=== PATIENT | female | born 1955 | race Caucasian/White ===

== ENCOUNTER 2024-06-08 00:25 | Inpatient (IN) ==
--- NOTE | 2024-06-08 01:22 | Emergency Department Note ---
Impression & Plan Mood disorder, Rhinovirus infection ED Provider Note NAME: JUSTIN WU AGE: 68 SEX: Female INFORMANT: Patient and friend ED PROVIDER(S): Augusto Mendoza MD CHIEF COMPLAINT: Mental health evaluation PLAN: Disposition: Admitted Outpatient prescription management: none Referral: None MEDICAL DECISION MAKING: Patient presented because of fluctuating mood and suicidal ideation. On examination she was exhibiting some signs of galen. Patient also had suicidal ideation. She noted minimal URI symptoms and she was around some close contacts with similar complaints. COVID testing was negative. Her CBC and chemistry panels were unremarkable. Toxicology screen negative. The patient had no significant pulmonary symptoms to warrant chest imaging. Patient had a normal ECG. Consultation was made with [address] [place] [address]. Patient was evaluated in the ER. They did ask for a [employer] testing to be performed to determine patient's eligibility for admission to the unit. Patient was positive for rhinovirus/enterovirus. They declined direct admission to the unit due to the infectious issues. [facility] Case discussed and diagnostics were reviewed. Patient can be admitted medically and psychiatry can be consulted. Care/management discussed with: ED psychiatric as assurance manager Level of care consideration(s): After review of the information above and other included data, I feel the patient requires escalation of admission. Triage Nursing notes: reviewed and agree them. Vital Signs: reviewed and remarkable for no significant abnormalities Additional History obtained from: Patient's friend noted her behavior outside the facility and confirm the history. Chronic Medical/Social Conditions affecting care: Anxiety, depression Prior/ Outside/ External records reviewed: none Differential Diagnosis: Mood disorder, infection, hypoglycemia, electrolyte abnormalities, cardiac sources, intracerebral event, toxicologic, trauma, neurologic, as well as other pathologies. Diagnostics, independently interpreted by me: ECG: Twelve-lead ECG reveals a normal sinus rhythm at [address] elevation or depression. No PACs or PVCs. Cardiac Monitoring: none Medical decision rules: none Imaging studies: Deferred HPI: 68 year old Female with history of anxiety and depression along with suicide attempt arrives for a mental health evaluation. Patient states that she is having a lot of mental health issues that have been going on since the of her brother and boyfriend a few months ago. They both from cancer. She notes that her primary physician a few weeks ago started her on escitalopram. She did request a referral to mental health. Patient notes that she has not been sleeping well. She has had difficulty concentrating. No significant alcohol or drug use. Patient is here with her friend that she lives with and friend notes that she has been extremely talkative and animated. Patient admits to excessive spending. She notes a runny nose but denies any other recent medical issues. She does have a history of hypertension as well. Pt denies LOC, headache, fevers, chills, diaphoresis, visual changes, neck pain, chest pain, breathing difficulties, nausea, vomiting, abdominal pain, back pain, diarrhea, urinary symptoms, numbness, weakness, or other complaints.. PAST MEDICAL HISTORY: See Below, anxiety, depression, suicide attempt, hypertension PAST SURGICAL HISTORY: See Below, SOCIAL HISTORY: See Below, lives with friend HOME MEDICATIONS: See Below ALLERGIES: See Below VITALS: See Below PHYSICAL EXAMINATION: GENERAL: Awake, alert, anxious-appearing, in no distress HENT: Normocephalic, atraumatic. Oropharynx unremarkable. EYES: Normal conjunctiva. Sclera non-icteric. Pupils round and reactive. Extraocular muscles intact. NECK: Inspection normal. Non-tender. Supple. No nuchal rigidity. FROM. No masses. RESPIRATORY: Clear to auscultation. No wheezes. No rales. Normal respiratory effort. CARDIAC: Normal rate. Normal rhythm. No murmurs. No rubs. Extremities warm and well perfused. Pulses equal. No JVD. GI: Soft, non-distended. No tenderness to palpation. No rebound or guarding. No masses. MUSCULOSKELETAL: Atraumatic. Chest examination reveals no tenderness. The back is symmetrical on inspection without obvious abnormality. There is no CVA tenderness to palpation. No joint edema. LOWER EXTREMITIES: Calves are equal size bilaterally and non-tender. No edema. No discoloration. NEURO: Normal sensorium. No sensory or motor deficits noted. SKIN: No rash or jaundice noted. PSYCH: Inflated mood and affect. Positive SI. PROCEDURES: none CRITICAL CARE: none OBSERVATION NOTE: none Past Med/Surg History Problem List (Updated 06/08/24 @ 07:04 by Augusto Mendoza MD) Rhinovirus infection (Acute) Mood disorder (Acute) Social History Smoking Status: Former smoker Tobacco Type: Cigarettes Preferred Language: Sinhala Feels Safe at Home: Yes Gender Identity: Female Allergies Allergies Allergy/AdvReac Type Severity Reaction Status Date / Time atomoxetine [From Strattera] AdvReac Muscle Pain Verified 06/08/24 01:37 Home Meds Home Medications Medication Instructions Recorded Confirmed escitalopram oxalate 5 mg tablet 5 mg PO DAILY 06/08/24 06/08/24 (Lexapro) lisinopril 10 mg tablet 10 mg PO DAILY 06/08/24 06/08/24 Results & Data (ED) Vital Signs Vital Signs - 24 hr 06/08/24 00:30 06/08/24 02:15 06/08/24 04:00 Temperature 36.9 C 37.0 C Temperature Source Temporal Artery Scan Oral Pulse Rate 98 H Pulse Rate [Finger] 87 79 Pulse Rhythm [Finger] Regular Regular Pulse Strength [Finger] Normal Respiratory Rate 18 20 19 Respiratory Effort / Characteristics Non-Labored Spontaneous Non-Labored Spontaneous Non-Labored Spontaneous Respiratory Depth Normal Normal Normal Respiratory Pattern Regular Regular Regular Blood Pressure 157/103 H Blood Pressure [Right Arm] 134/69 152/81 H Blood Pressure Mean 121 Blood Pressure Mean [Right Arm] 90 104 Blood Pressure Position Sitting Blood Pressure Position [Right Arm] Lying Pulse Oximetry 97 96 97 Oxygen Delivery Method Room Air Room Air Room Air Sepsis Recent Fever Within 48 Hours No Sepsis New/Unexplained Change in Mental Status N/A Sepsis Action Taken by Nursing No Action Required Laboratory Data 06/08/24 00:41 06/08/24 00:41 Lab Results 06/08/24 06/08/24 06/08/24 Range/Units 00:41 00:54 01:25 WBC 9.77 (4.8-10.8) K/ul RBC 4.23 (4.20-5.40) M/uL Hgb 12.6 (12.0-16.0) g/dl Hct 39.6 (37.0-47.0) % MCV 93.6 (80.0-100.0) fL MCH 29.8 (25.0-34.0) pg MCHC 31.8 L (32.0-36.0) g/dL RDW Std Deviation 52.9 H (36.4-46.3) fL RDW Coeff of [place] 15.4 H (11.5-14.5) % Plt Count 256 (130-400) K/uL MPV 9.1 L (9.4-12.4) fL Immature Gran % (Auto) 0.3 % Neut % (Auto) 58.3 % Lymph % (Auto) 29.2 % [place] % (Auto) 9.1 % Eos % (Auto) 2.6 % Baso % (Auto) 0.5 % Neut # (Auto) 5.70 (1.40-6.50) K/uL Lymph # (Auto) 2.85 (1.20-3.40) K/uL [place] # (Auto) 0.89 H (0.11-0.59) K/uL Eos # (Auto) 0.25 (0.00-0.50) K/uL Baso # (Auto) 0.05 (0.00-0.20) K/uL Immature Gran # (Auto) 0.03 (0.01-0.20) K/uL Sodium 140 (136-145) mmol/L Potassium 3.8 (3.5-5.1) mmol/L Chloride 106 (98-107) mmol/L Carbon Dioxide 28 (21-32) mmol/L Anion Gap 6 (3-11) BUN 26 H (6-23) mg/dl Creatinine 0.85 (0.6-1.2) mg/dl Est Cr Clr Drug Dosing 51.7 ml/min eGFR 74.12 BUN/Creatinine Ratio 30.6 H (10-20) Glucose 101 H (70-99(Fasting)) mg/dl Calcium 9.0 (8.6-10.3) mg/dl Total Bilirubin 0.2 (0.2-1.0) mg/dl AST 29 (13-39) U/L ALT 26 (7-52) U/L Alkaline Phosphatase 67 (34-104) U/L Total Protein 6.2 (6.0-8.3) gm/dl Albumin 4.1 (3.4-5.0) gm/dl Globulin 2.1 L (2.5-4.0) gm/dl Albumin/Globulin Ratio 2.0 (0.9-2) TSH 0.982 (0.300-4.500) uIu/ml Urine Color Yellow Urine Appearance Clear (Clear) Urine pH 6.0 (4.5-7.5) Ur Specific [place] 1.025 (1.000-1.030) Urine Protein Negative (Negative) Urine Glucose (UA) Negative (Negative) Urine Ketones Trace H (Negative) Urine Blood Negative (Negative) Urine Nitrite Negative (Negative) Urine Bilirubin Negative (Negative) Urine Urobilinogen Negative (Negative) Ur Leukocyte Esterase Negative (Negative) Salicylates < 3.0 L (3.0-30) mg/dl Urine Opiates Screen Neg (Neg) Ur Methadone, Qual Neg (Neg) Urine Fentanyl Screen Neg (Neg) Acetaminophen < 3 L (10-30) ug/ml Urine Barbiturates Neg (Neg) Ur Phencyclidine (PCP) Neg (Neg) U Amphetamin/Meth Scrn Neg (Neg) MDMA (Ecstasy) Screen Neg (Neg) U Benzodiazepines Scrn Neg (Neg) Ur Cocaine Metabolite Neg (Neg) U Marijuana (THC) Screen Neg (Neg) Ethyl Alcohol mg/dL < 10.0 (<10.0) mg/dl Adenovirus (PCR) (NotDetected) B. pertussis DNA (PCR) (NotDetected) B.parapertussis DNA PCR (NotDetected) C. pneumoniae DNA (PCR) (NotDetected) Coronavirus OC43 (PCR) (NotDetected) Coronavirus HKU1 (PCR) (NotDetected) Coronavirus 229E (PCR) (NotDetected) SARS-CoV-2 (PCR) (NotDetected) Coronavirus NL63 (PCR) (NotDetected) Human Metapneumovir PCR (NotDetected) Influenza Type A (PCR) (NotDetected) Influenza Type B (PCR) (NotDetected) M. pneumoniae (PCR) (NotDetected) Parainfluenza 1 (PCR) (NotDetected) Parainfluenza 2 (PCR) (NotDetected) Parainfluenza 3 (PCR) (NotDetected) Parainfluenza 4 (PCR) (NotDetected) RSV (PCR) (NotDetected) Entero/Rhino (PCR) (NotDetected) SARS-CoV-2, RNA, NAAT NEGATIVE (NEGATIVE) 06/08/24 Range/Units 03:44 WBC (4.8-10.8) K/ul RBC (4.20-5.40) M/uL Hgb (12.0-16.0) g/dl Hct (37.0-47.0) % MCV (80.0-100.0) fL MCH (25.0-34.0) pg MCHC (32.0-36.0) g/dL RDW Std Deviation (36.4-46.3) fL RDW Coeff of [place] (11.5-14.5) % Plt Count (130-400) K/uL MPV (9.4-12.4) fL Immature Gran % (Auto) % Neut % (Auto) % Lymph % (Auto) % [place] % (Auto) % Eos % (Auto) % Baso % (Auto) % Neut # (Auto) (1.40-6.50) K/uL Lymph # (Auto) (1.20-3.40) K/uL [place] # (Auto) (0.11-0.59) K/uL Eos # (Auto) (0.00-0.50) K/uL Baso # (Auto) (0.00-0.20) K/uL Immature Gran # (Auto) (0.01-0.20) K/uL Sodium (136-145) mmol/L Potassium (3.5-5.1) mmol/L Chloride (98-107) mmol/L Carbon Dioxide (21-32) mmol/L Anion Gap (3-11) BUN (6-23) mg/dl Creatinine (0.6-1.2) mg/dl Est Cr Clr Drug Dosing ml/min eGFR BUN/Creatinine Ratio (10-20) Glucose (70-99(Fasting)) mg/dl Calcium (8.6-10.3) mg/dl Total Bilirubin (0.2-1.0) mg/dl AST (13-39) U/L ALT (7-52) U/L Alkaline Phosphatase (34-104) U/L Total Protein (6.0-8.3) gm/dl Albumin (3.4-5.0) gm/dl Globulin (2.5-4.0) gm/dl Albumin/Globulin Ratio (0.9-2) TSH (0.300-4.500) uIu/ml Urine Color Urine Appearance (Clear) Urine pH (4.5-7.5) Ur Specific [place] (1.000-1.030) Urine Protein (Negative) Urine Glucose (UA) (Negative) Urine Ketones (Negative) Urine Blood (Negative) Urine Nitrite (Negative) Urine Bilirubin (Negative) Urine Urobilinogen (Negative) Ur Leukocyte Esterase (Negative) Salicylates (3.0-30) mg/dl Urine Opiates Screen (Neg) Ur Methadone, Qual (Neg) Urine Fentanyl Screen (Neg) Acetaminophen (10-30) ug/ml Urine Barbiturates (Neg) Ur Phencyclidine (PCP) (Neg) U Amphetamin/Meth Scrn (Neg) MDMA (Ecstasy) Screen (Neg) U Benzodiazepines Scrn (Neg) Ur Cocaine Metabolite (Neg) U Marijuana (THC) Screen (Neg) Ethyl Alcohol mg/dL (<10.0) mg/dl Adenovirus (PCR) Not Detected (NotDetected) B. pertussis DNA (PCR) Not Detected (NotDetected) B.parapertussis DNA PCR Not Detected (NotDetected) C. pneumoniae DNA (PCR) Not Detected (NotDetected) Coronavirus OC43 (PCR) Not Detected (NotDetected) Coronavirus HKU1 (PCR) Not Detected (NotDetected) Coronavirus 229E (PCR) Not Detected (NotDetected) SARS-CoV-2 (PCR) Not Detected (NotDetected) Coronavirus NL63 (PCR) Not Detected (NotDetected) Human Metapneumovir PCR Not Detected (NotDetected) Influenza Type A (PCR) Not Detected (NotDetected) Influenza Type B (PCR) Not Detected (NotDetected) M. pneumoniae (PCR) Not Detected (NotDetected) Parainfluenza 1 (PCR) Not Detected (NotDetected) Parainfluenza 2 (PCR) Not Detected (NotDetected) Parainfluenza 3 (PCR) Not Detected (NotDetected) Parainfluenza 4 (PCR) Not Detected (NotDetected) RSV (PCR) Not Detected (NotDetected) Entero/Rhino (PCR) DETECTED A (NotDetected) SARS-CoV-2, RNA, NAAT (NEGATIVE) Administered Medications Discontinued Medications Menthol (Cough Drop (Sugar Free) Becky 24 Becky/1 Box) 1 becky BUCCAL NOW STA Stop: 06/08/24 02:18 Last Admin: 06/08/24 02:25 Dose: 1 becky Documented By: LUPE Discharge Plan Visit Data Chief Complaint: Mental Health Evaluation Stated Complaint: MENTAL HEALTH ISSUES ED Provider: Augusto Mendoza Discharge Problem: Mood disorder, Rhinovirus infection Forms Stand Alone Forms: [facility], Suicide Prevention Resources Prescriptions Prescriptions: No Action lisinopril 10 mg Tablet 10 mg PO DAILY escitalopram oxalate [Lexapro] 5 mg Tablet 5 mg PO DAILY Referrals Referrals: PCP,NO [Physician] -
[2024-06-08 01:31] LABS: Basophils # (auto) 0.05 K/uL (0.00-0.20); Basophils % (auto) 0.5 %; Eosinophils # (auto) 0.25 K/uL (0.00-0.50); Eosinophils % (auto) 2.6 %; Hematocrit (blood only) 39.6 % (37.0-47.0); Hemoglobin 12.6 g/dl (12.0-16.0); Immature Granulocytes # (auto) 0.03 K/uL (0.01-0.20); Immature Granulocytes % (auto) 0.3 %; Lymphocytes # (auto) 2.85 K/uL (1.20-3.40); Lymphocytes % (auto) 29.2 %; Mean Corpuscular Hemoglobin 29.8 pg (25.0-34.0); Mean Corpuscular Hgb Conc 31.8 g/dL (32.0-36.0); Mean Corpuscular Volume 93.6 fL (80.0-100.0); Mean Platelet Volume 9.1 fL (9.4-12.4); Monocytes # (auto) 0.89 K/uL (0.11-0.59); Monocytes % (auto) 9.1 %; Neutrophils % (auto) 58.3 %; Platelet Count 256 K/uL (130-400); RDW Coefficient of Variation 15.4 % (11.5-14.5); RDW Standard Deviation 52.9 fL (36.4-46.3); Red Blood Count 4.23 M/uL (4.20-5.40); White Blood Count 9.77 K/ul (4.8-10.8)
[2024-06-08 01:48] LABS: Appearance Urine Clear (Clear); Bilirubin Urine Negative (Negative); Blood Urine Negative (Negative); Color Urine Yellow; Glucose Urine UA Negative (Negative); Ketones Urine Trace (Negative); Leukocyte Esterase Urine Negative (Negative); Nitrite Urine Negative (Negative); Protein Urine Negative (Negative); Specific Gravity Urine 1.025 (1.000-1.030); Urobilinogen Urine Negative (Negative)
[2024-06-08 01:52] LABS: Albumin Level 4.1 gm/dl (3.4-5.0); Bilirubin,Total 0.2 mg/dl (0.2-1.0); Potassium 3.8 mmol/L (3.5-5.1)
[2024-06-08 02:04] LABS: BUN Creatinine Ratio 30.6 (10-20); Creatinine Clr Calc Pharmacy 51.7 ml/min; Globulin 2.1 gm/dl (2.5-4.0); Total Protein 6.2 gm/dl (6.0-8.3)
[2024-06-08 02:06] LABS: Acetaminophen < 3 ug/ml (10-30); Salicylate < 3.0 mg/dl (3.0-30)
[2024-06-08 02:21] LABS: Amphetamines+Metham, Urine Neg (Neg); Barbiturates, Urine Neg (Neg); Benzodiazepine, Urine Neg (Neg); Cocaine, Urine Neg (Neg); Fentanyl, Urine Neg (Neg); MDMA (Ecstacy), Urine Neg (Neg); Marijuana, Urine Neg (Neg); Methadone, Urine Neg (Neg); Opiate, Urine Neg (Neg); Phencyclidine, Urine Neg (Neg)
[2024-06-08] MEDS: COUGH DROP (SUGAR FREE) LOZ 24 LOZ/1 BOX BUCCAL STA (02:25)
[2024-06-08 02:47] LABS: Thyroid Stimulating Hormone 0.982 uIu/ml (0.300-4.500)
[2024-06-08 04:49] LABS: Adenovirus PCR Not Detected (NotDetected); Bordetella parapertussis PCR Not Detected (NotDetected); Bordetella pertussis PCR Not Detected (NotDetected); Chlamydia pneumoniae PCR Not Detected (NotDetected); Coronavirus 229E PCR Not Detected (NotDetected); Coronavirus CoV-2 (COVID19)PCR Not Detected (NotDetected); Coronavirus HKU1 PCR Not Detected (NotDetected); Coronavirus NL63 PCR Not Detected (NotDetected); Coronavirus OC43PCR Not Detected (NotDetected); Human Metapneumovirus PCR Not Detected (NotDetected); Influenza A PCR Not Detected (NotDetected); Influenza B PCR Not Detected (NotDetected); Mycoplasma pneumoniae PCR Not Detected (NotDetected); Parainfluenza Virus 1 PCR Not Detected (NotDetected); Parainfluenza Virus 2 PCR Not Detected (NotDetected); Parainfluenza Virus 3 PCR Not Detected (NotDetected); Parainfluenza Virus 4 PCR Not Detected (NotDetected); Respiratory Syncytial VirusPCR Not Detected (NotDetected); Rhinovirus/Enterovirus PCR DETECTED (NotDetected)
--- NOTE | 2024-06-08 06:51 | History & Physical Report ---
Date of Service June 08, 2024 Assessment & Plan (1) Mood disorder: Plan: Likely bipolar disorder History anxiety disorder History ADHD as per records Episodic suicidal ideations hypertension, slightly elevated Rhinovirus infection COPD, not in acute exacerbation melanoma status post surgery difficult airway as per records past tobacco abuse [facility] Psychiatry consult re: bipolar disorder, episodic suicidal ideations Suicide precautions/hold Lexapro until patient seen by Psychiatry service Supportive management for viral illness DVT prophylaxis. SCDs Full code Text document was generated using [employer] voice recognition software. It may contain grammatical or spelling errors. Kindly contact undersigned for clarification of any documentation item in question. History of Present Illness Chief Complaint: My friend wanted me to get checked out Primary Care Provider: Dr. Ramesh Fernández from [place], [place] History obtained from patient, ED staff, and records. Medical history significant for hypertension, COPD, GERD, ADHD, anxiety/mood disorder, melanoma status post surgery, difficult airway as per records, past tobacco abuse. Patient had been staying with a friend who is a resident of [place] the last few months. Patient stressed out/depressed over recent deaths in the family. Patient started by PCP on Celexa a few weeks ago. Patient thinks medication helping. Patient verbally aggressive recently and threatened to kill her friend as per report. Patient not sleeping well for a couple of weeks. Patient admits to fleeting suicidal thoughts. Denies headache, chest pain, SOB. Some nasal congestion with cough productive of clear sputum. Sick contacts from triptap gathering. MHU recommended medical admission due to positive rhinovirus swab. Medical History as above Surgical History : Bunion surgery, dental surgery, D&C, shoulder lesion incision, metatarsal osteotomy, cataract surgery, tonsillectomy/adenoidectomy, hammertoe correction, skin cancer surgery Family History : Breast cancer, colon cancer, heart disease, migraine Personal/Social history : Past tobacco abuse, occasional EtOH intake, retired [employer] employee Allergies Allergy/AdvReac Type Severity Reaction Status Date / Time atomoxetine [From Strattera] AdvReac Muscle Pain Verified 06/08/24 01:37 Home Medications Medication Instructions Recorded Confirmed Type escitalopram oxalate 5 mg tablet 5 mg PO DAILY 06/08/24 06/08/24 History (Lexapro) lisinopril 10 mg tablet 10 mg PO DAILY 06/08/24 06/08/24 History Past Med/Surg History Problem List (Updated 06/08/24 @ 10:31 by Joel Hill MD) Impaired insight Prolonged QT interval Suicidal ideation Bipolar disorder Hypertension, essential Rhinovirus infection (Acute) Mood disorder (Acute) Social History Smoking Status: Former smoker Tobacco Type: Cigarettes Do You Dip or Chew Tobacco: No; Hx Alcohol Use: No Hx Substance Use: No Preferred Language: Indonesian Communication Ability: Effective Skirt Clipper Required: No Beliefs That Will Affect Care: None Current Living Situation: Other Current Living Situation Comment: Friend - Sara Carcamo Feels Safe at Home: Yes Safety Concerns: Feels Safe At This Time Gender Identity: Female Review of Systems Review of Systems: As per HPI, all other systems reviewed and negative Physical Exam Physical Exam: GENERAL: Comfortable, pleasant, flight of ideas expressed during encounter, no respiratory distress SKIN: Normal color, warm HEENT: [place] palpebral conjunctivae, no ptosis, dry buccal mucosa NECK : Supple, no tenderness CHEST : Decreased breath sounds, no tenderness HEART : RRR, no obvious murmurs ABDOMEN: Some distention, nontender EXTREMITIES : No LE swelling/tenderness, no other conspicuous deformities noted NEUROLOGIC : Coherent, no facial asymmetry, no other gross focality Results & Data Results & Data Vital Signs (Past 12 Hours) Vital Signs Temp Pulse Pulse Resp BP BP Pulse Ox 06/08/24 04:00 79 19 152/81 H 97 06/08/24 02:15 37.0 C 87 20 134/69 96 06/08/24 00:30 36.9 C 98 H 18 157/103 H 97 O2 Del Method 06/08/24 04:00 Room Air 06/08/24 02:15 Room Air 06/08/24 00:30 Room Air Laboratory Results Laboratory Results WBC 9.77 K/ul (4.8-10.8) 06/08/24 00:41 RBC 4.23 M/uL (4.20-5.40) 06/08/24 00:41 Hgb 12.6 g/dl (12.0-16.0) 06/08/24 00:41 Hct 39.6 % (37.0-47.0) 06/08/24 00:41 MCV 93.6 fL (80.0-100.0) 06/08/24 00:41 MCH 29.8 pg (25.0-34.0) 06/08/24 00:41 MCHC 31.8 g/dL (32.0-36.0) L 06/08/24 00:41 RDW Std Deviation 52.9 fL (36.4-46.3) H 06/08/24 00:41 RDW Coeff of [place] 15.4 % (11.5-14.5) H 06/08/24 00:41 Plt Count 256 K/uL (130-400) 06/08/24 00:41 MPV 9.1 fL (9.4-12.4) L 06/08/24 00:41 Immature Gran % (Auto) 0.3 % 06/08/24 00:41 Neut % (Auto) 58.3 % 06/08/24 00:41 Lymph % (Auto) 29.2 % 06/08/24 00:41 [place] % (Auto) 9.1 % 06/08/24 00:41 Eos % (Auto) 2.6 % 06/08/24 00:41 Baso % (Auto) 0.5 % 06/08/24 00:41 Neut # (Auto) 5.70 K/uL (1.40-6.50) 06/08/24 00:41 Lymph # (Auto) 2.85 K/uL (1.20-3.40) 06/08/24 00:41 [place] # (Auto) 0.89 K/uL (0.11-0.59) H 06/08/24 00:41 Eos # (Auto) 0.25 K/uL (0.00-0.50) 06/08/24 00:41 Baso # (Auto) 0.05 K/uL (0.00-0.20) 06/08/24 00:41 Immature Gran # (Auto) 0.03 K/uL (0.01-0.20) 06/08/24 00:41 Sodium 140 mmol/L (136-145) 06/08/24 00:41 Potassium 3.8 mmol/L (3.5-5.1) 06/08/24 00:41 Chloride 106 mmol/L (98-107) 06/08/24 00:41 Carbon Dioxide 28 mmol/L (21-32) 06/08/24 00:41 Anion Gap 6 (3-11) 06/08/24 00:41 BUN 26 mg/dl (6-23) H 06/08/24 00:41 Creatinine 0.85 mg/dl (0.6-1.2) 06/08/24 00:41 Est Cr Clr Drug Dosing 51.7 ml/min 06/08/24 00:41 eGFR 74.12 06/08/24 00:41 BUN/Creatinine Ratio 30.6 (10-20) H 06/08/24 00:41 Glucose 101 mg/dl (70-99(Fasting)) H 06/08/24 00:41 Calcium 9.0 mg/dl (8.6-10.3) 06/08/24 00:41 Total Bilirubin 0.2 mg/dl (0.2-1.0) 06/08/24 00:41 AST 29 U/L (13-39) 06/08/24 00:41 ALT 26 U/L (7-52) 06/08/24 00:41 Alkaline Phosphatase 67 U/L (34-104) 06/08/24 00:41 Total Protein 6.2 gm/dl (6.0-8.3) 06/08/24 00:41 Albumin 4.1 gm/dl (3.4-5.0) 06/08/24 00:41 Globulin 2.1 gm/dl (2.5-4.0) L 06/08/24 00:41 Albumin/Globulin Ratio 2.0 (0.9-2) 06/08/24 00:41 TSH 0.982 uIu/ml (0.300-4.500) 06/08/24 00:41 Urine Color Yellow 06/08/24 01:25 Urine Appearance Clear (Clear) 06/08/24 01:25 Urine pH 6.0 (4.5-7.5) 06/08/24 01:25 Ur Specific [place] 1.025 (1.000-1.030) 06/08/24 01:25 Urine Protein Negative (Negative) 06/08/24 01:25 Urine Glucose (UA) Negative (Negative) 06/08/24 01:25 Urine Ketones Trace (Negative) H 06/08/24 01:25 Urine Blood Negative (Negative) 06/08/24 01:25 Urine Nitrite Negative (Negative) 06/08/24 01:25 Urine Bilirubin Negative (Negative) 06/08/24 01:25 Urine Urobilinogen Negative (Negative) 06/08/24 01:25 Ur Leukocyte Esterase Negative (Negative) 06/08/24 01:25 Salicylates < 3.0 mg/dl (3.0-30) L 06/08/24 00:41 Urine Opiates Screen Neg (Neg) 06/08/24 01:25 Ur Methadone, Qual Neg (Neg) 06/08/24 01:25 Urine Fentanyl Screen Neg (Neg) 06/08/24 01:25 Acetaminophen < 3 ug/ml (10-30) L 06/08/24 00:41 Urine Barbiturates Neg (Neg) 06/08/24 01:25 Ur Phencyclidine (PCP) Neg (Neg) 06/08/24 01:25 U Amphetamin/Meth Scrn Neg (Neg) 06/08/24 01:25 MDMA (Ecstasy) Screen Neg (Neg) 06/08/24 01:25 U Benzodiazepines Scrn Neg (Neg) 06/08/24 01:25 Ur Cocaine Metabolite Neg (Neg) 06/08/24 01:25 U Marijuana (THC) Screen Neg (Neg) 06/08/24 01:25 Ethyl Alcohol mg/dL < 10.0 mg/dl (<10.0) 06/08/24 00:41 Adenovirus (PCR) Not Detected (NotDetected) 06/08/24 03:44 B. pertussis DNA (PCR) Not Detected (NotDetected) 06/08/24 03:44 B.parapertussis DNA PCR Not Detected (NotDetected) 06/08/24 03:44 C. pneumoniae DNA (PCR) Not Detected (NotDetected) 06/08/24 03:44 Coronavirus OC43 (PCR) Not Detected (NotDetected) 06/08/24 03:44 Coronavirus HKU1 (PCR) Not Detected (NotDetected) 06/08/24 03:44 Coronavirus 229E (PCR) Not Detected (NotDetected) 06/08/24 03:44 SARS-CoV-2 (PCR) Not Detected (NotDetected) 06/08/24 03:44 Coronavirus NL63 (PCR) Not Detected (NotDetected) 06/08/24 03:44 Human Metapneumovir PCR Not Detected (NotDetected) 06/08/24 03:44 Influenza Type A (PCR) Not Detected (NotDetected) 06/08/24 03:44 Influenza Type B (PCR) Not Detected (NotDetected) 06/08/24 03:44 M. pneumoniae (PCR) Not Detected (NotDetected) 06/08/24 03:44 Parainfluenza 1 (PCR) Not Detected (NotDetected) 06/08/24 03:44 Parainfluenza 2 (PCR) Not Detected (NotDetected) 06/08/24 03:44 Parainfluenza 3 (PCR) Not Detected (NotDetected) 06/08/24 03:44 Parainfluenza 4 (PCR) Not Detected (NotDetected) 06/08/24 03:44 RSV (PCR) Not Detected (NotDetected) 06/08/24 03:44 Entero/Rhino (PCR) DETECTED (NotDetected) A 06/08/24 03:44 SARS-CoV-2, RNA, NAAT NEGATIVE (NEGATIVE) 06/08/24 00:54 Diagnostic Findings EKG as per my interpretation rate 90, NSR, normal axis, no ischemia
[2024-06-08] MEDS ORDERED: PROMETHAZINE 6.25 MG/50.25 ML BAG IV PRN (06:58)
[2024-06-08] MEDS: ACETAMINOPHEN 325 MG TAB PO PRN (07:54)
[2024-06-08] MEDS: hydrOXYzine HCl 10 MG TAB PO PRN (07:54)
[2024-06-08] MEDS: lisinopril 10 MG TAB PO STA (07:54)
--- NOTE | 2024-06-08 10:16 | Hospitalist Progress Note ---
Date of Service June 08, 2024 Assessment & Plan (1) Mood disorder: Plan: Mood disorder, seen by psychiatry, would wait for their input however I feel the patient would need inpatient evaluation and treatment however because of current status of being positive for rhinovirus, patient does not meet criteria to be admitted to the psych unit and so patient will be covered by medical team.In the meantime we will follow-up with recommendation by psychiatry. (2) Hypertension, essential: Plan: Blood pressure is controlled, continue with lisinopril 10 mg daily. Plan Patient will be monitored by medical team, follow-up with recommendation by psychiatry, awaiting reevaluation by psychiatry team when the patient is considered to be stable for admission to psychiatric floor. Admission and Anticipated Discharge Date Admission Date: June 08, 2024 Subjective Patient was seen and examined, she is very pleasant, did not show any disruptive or aggressive behavior, she complains of very minimal cough but otherwise does not appear to be ill. Physical Exam Physical Exam: VITALS: Reviewed. WEIGHT/BMI reviewed. GEN: Healthy appearing, well-developed, NAD. HEENT -Head: NC/AT; -Eyes: PERRL, EOMI. No discharge or redn ess; -Ears: External ears are normal. Normal TMs. -Nose: Normal nares. -Mouth and throat: MMM. Normal gums, muc carol, palate,. Good dentition. CV: RRR, no m/r/g. LUNGS: CTAB, no w/r/c. Results & Data Results & Data Vital Signs (Past 12 Hours) Vital Signs Temp Pulse Pulse Resp BP BP Pulse Ox 06/08/24 07:25 37.1 C 84 18 154/89 H 98 06/08/24 04:00 79 19 152/81 H 97 06/08/24 02:15 37.0 C 87 20 134/69 96 06/08/24 00:30 36.9 C 98 H 18 157/103 H 97 O2 Del Method 06/08/24 07:25 Room Air 06/08/24 04:00 Room Air 06/08/24 02:15 Room Air 06/08/24 00:30 Room Air Laboratory Results Laboratory Results - last 24 hr 06/08/24 06/08/24 06/08/24 00:41 00:54 01:25 WBC 9.77 RBC 4.23 Hgb 12.6 Hct 39.6 MCV 93.6 MCH 29.8 MCHC 31.8 L RDW Std Deviation 52.9 H RDW Coeff of Prince 15.4 H Plt Count 256 MPV 9.1 L Immature Gran % (Auto) 0.3 Neut % (Auto) 58.3 Lymph % (Auto) 29.2 [place] % (Auto) 9.1 Eos % (Auto) 2.6 Baso % (Auto) 0.5 Neut # (Auto) 5.70 Lymph # (Auto) 2.85 [place] # (Auto) 0.89 H Eos # (Auto) 0.25 Baso # (Auto) 0.05 Immature Gran # (Auto) 0.03 Sodium 140 Potassium 3.8 Chloride 106 Carbon Dioxide 28 Anion Gap 6 BUN 26 H Creatinine 0.85 Est Cr Clr Drug Dosing 51.7 eGFR 74.12 BUN/Creatinine Ratio 30.6 H Glucose 101 H Calcium 9.0 Total Bilirubin 0.2 AST 29 ALT 26 Alkaline Phosphatase 67 Total Protein 6.2 Albumin 4.1 Globulin 2.1 L Albumin/Globulin Ratio 2.0 TSH 0.982 Urine Color Yellow Urine Appearance Clear Urine pH 6.0 Ur Specific [place] 1.025 Urine Protein Negative Urine Glucose (UA) Negative Urine Ketones Trace H Urine Blood Negative Urine Nitrite Negative Urine Bilirubin Negative Urine Urobilinogen Negative Ur Leukocyte Esterase Negative Salicylates < 3.0 L Urine Opiates Screen Neg Ur Methadone, Qual Neg Urine Fentanyl Screen Neg Acetaminophen < 3 L Urine Barbiturates Neg Ur Phencyclidine (PCP) Neg U Amphetamin/Meth Scrn Neg MDMA (Ecstasy) Screen Neg U Benzodiazepines Scrn Neg Ur Cocaine Metabolite Neg U Marijuana (THC) Screen Neg Ethyl Alcohol mg/dL < 10.0 Adenovirus (PCR) B. pertussis DNA (PCR) B.parapertussis DNA PCR C. pneumoniae DNA (PCR) Coronavirus OC43 (PCR) Coronavirus HKU1 (PCR) Coronavirus 229E (PCR) SARS-CoV-2 (PCR) Coronavirus NL63 (PCR) Human Metapneumovir PCR Influenza Type A (PCR) Influenza Type B (PCR) M. pneumoniae (PCR) Parainfluenza 1 (PCR) Parainfluenza 2 (PCR) Parainfluenza 3 (PCR) Parainfluenza 4 (PCR) RSV (PCR) Entero/Rhino (PCR) SARS-CoV-2, RNA, NAAT NEGATIVE 06/08/24 03:44 WBC RBC Hgb Hct MCV MCH MCHC RDW Std Deviation RDW Coeff of [place] Plt Count MPV Immature Gran % (Auto) Neut % (Auto) Lymph % (Auto) [place] % (Auto) Eos % (Auto) Baso % (Auto) Neut # (Auto) Lymph # (Auto) [place] # (Auto) Eos # (Auto) Baso # (Auto) Immature Gran # (Auto) Sodium Potassium Chloride Carbon Dioxide Anion Gap BUN Creatinine Est Cr Clr Drug Dosing eGFR BUN/Creatinine Ratio Glucose Calcium Total Bilirubin AST ALT Alkaline Phosphatase Total Protein Albumin Globulin Albumin/Globulin Ratio TSH Urine Color Urine Appearance Urine pH Ur Specific [place] Urine Protein Urine Glucose (UA) Urine Ketones Urine Blood Urine Nitrite Urine Bilirubin Urine Urobilinogen Ur Leukocyte Esterase Salicylates Urine Opiates Screen Ur Methadone, Qual Urine Fentanyl Screen Acetaminophen Urine Barbiturates Ur Phencyclidine (PCP) U Amphetamin/Meth Scrn MDMA (Ecstasy) Screen U Benzodiazepines Scrn Ur Cocaine Metabolite U Marijuana (THC) Screen Ethyl Alcohol mg/dL Adenovirus (PCR) Not Detected B. pertussis DNA (PCR) Not Detected B.parapertussis DNA PCR Not Detected C. pneumoniae DNA (PCR) Not Detected Coronavirus OC43 (PCR) Not Detected Coronavirus HKU1 (PCR) Not Detected Coronavirus 229E (PCR) Not Detected SARS-CoV-2 (PCR) Not Detected Coronavirus NL63 (PCR) Not Detected Human Metapneumovir PCR Not Detected Influenza Type A (PCR) Not Detected Influenza Type B (PCR) Not Detected M. pneumoniae (PCR) Not Detected Parainfluenza 1 (PCR) Not Detected Parainfluenza 2 (PCR) Not Detected Parainfluenza 3 (PCR) Not Detected Parainfluenza 4 (PCR) Not Detected RSV (PCR) Not Detected Entero/Rhino (PCR) DETECTED A SARS-CoV-2, RNA, NAAT Medications Administered Current Inpatient Medications Acetaminophen (Acetaminophen 325 Mg Tab) 650 mg PO QID PRN PRN Reason: pain/fever Stop: 07/08/24 06:57 Last Admin: 06/08/24 07:54 Dose: 650 mg Hydroxyzine HCl (Hydroxyzine Hcl 10 Mg Tab) 10 mg PO QID PRN PRN Reason: Anxiety Stop: 07/08/24 07:14 Last Admin: 06/08/24 07:54 Dose: 10 mg Promethazine HCl (Phenergan) 6.25 mg in 50.25 mls @ 201 mls/hr IV Q6H PRN PRN Reason: Nausea And Vomiting Stop: 07/08/24 06:57 Lisinopril (Lisinopril 10 Mg Tab) 10 mg PO DAILY [facility] Stop: 07/09/24 08:59
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
[2024-06-08] MEDS ORDERED: OLANZapine ZYDIS 5 MG ORALLY DIS. TAB PO PRN (12:03)
--- NOTE | 2024-06-08 14:04 | Electrocardiogram Report ---
Test Reason : Blood Pressure : */* mmHG Vent. Rate : 89 BPM Atrial Rate : 89 BPM P-R Int : 132 ms QRS Dur : 98 ms QT Int : 398 ms P-R-T Axes : 73 48 62 degrees QTcB Int : 484 ms Normal sinus rhythm Normal ECG No previous ECGs available Confirmed by Francisco Espinal ([id number]) on 06/08/2024 2:03:56 PM Referred By: REFERRED SELF Confirmed By: Francisco Espinal
[2024-06-08] MEDS: LORazepam 1 MG TAB PO SCH (20:46)
[2024-06-08] MEDS: ARIPiprazole 10 MG TAB PO SCH (20:52)
[2024-06-09] MEDS: COUGH DROP (SUGAR FREE) LOZ 24 LOZ/1 BOX BUCCAL ONE (06:42)
[2024-06-09] MEDS: lisinopril 10 MG TAB PO SCH (08:45)
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
--- NOTE | 2024-06-09 11:09 | Hospitalist Progress Note ---
Date of Service June 09, 2024 Assessment & Plan (1) Mood disorder: Plan: Will continue to see the patient along with psychiatry team, follow with their criteria for admission to psychiatric unit. Patient was started on Abilify 10 mg at night and Ativan 2 mg at night. (2) Hypertension, essential: Plan: Blood pressure is controlled, continue with hydralazine 10 mg daily. Plan Awaiting patient to be cleared by psychiatry for their admission to psychiatric unit. Admission and Anticipated Discharge Date Admission Date: June 08, 2024 Subjective Patient was seen and examined, she is very pleasant, no other symptoms, no issue overnight. Physical Exam Physical Exam: VITALS: Reviewed. WEIGHT/BMI reviewed. GEN: Healthy appearing, well-developed, NAD. HEENT -Head: NC/AT; -Eyes: PERRL, EOMI. No discharge or redn ess; -Ears: External ears are normal. Normal TMs. -Nose: Normal nares. -Mouth and throat: MMM. Normal gums, muc carol, palate,. Good dentition. CV: RRR, no m/r/g. LUNGS: CTAB, no w/r/c. Results & Data Results & Data Vital Signs (Past 12 Hours) Vital Signs Temp Pulse Resp BP Pulse Ox O2 Del Method 06/09/24 09:08 Room Air 06/09/24 07:40 36.8 C 93 H 18 149/83 H 97 Room Air
[2024-06-09 18:47] LABS: Estimated Average Glucose 114 mg/dl; Hemoglobin A1C 5.6 % (4.5-5.6)
[2024-06-09] MEDS: ARIPiprazole 15 MG TAB PO SCH (21:27)
[2024-06-09] MEDS: guaiFENesin 600 MG TABCR PO SCH (21:28)
[2024-06-10 06:54] LABS: Basophils # (auto) 0.02 K/uL (0.00-0.20); Basophils % (auto) 0.3 %; Eosinophils # (auto) 0.19 K/uL (0.00-0.50); Eosinophils % (auto) 2.5 %; Hematocrit (blood only) 37.8 % (37.0-47.0); Hemoglobin 12.5 g/dl (12.0-16.0); Immature Granulocytes # (auto) 0.04 K/uL (0.01-0.20); Immature Granulocytes % (auto) 0.5 %; Lymphocytes # (auto) 1.84 K/uL (1.20-3.40); Lymphocytes % (auto) 23.9 %; Mean Corpuscular Hemoglobin 30.6 pg (25.0-34.0); Mean Corpuscular Hgb Conc 33.1 g/dL (32.0-36.0); Mean Corpuscular Volume 92.4 fL (80.0-100.0); Mean Platelet Volume 8.8 fL (9.4-12.4); Monocytes # (auto) 0.63 K/uL (0.11-0.59); Monocytes % (auto) 8.2 %; Neutrophils # (auto) 4.98 K/uL (1.40-6.50); Neutrophils % (auto) 64.6 %; Platelet Count 227 K/uL (130-400); RDW Standard Deviation 51.6 fL (36.4-46.3); Red Blood Count 4.09 M/uL (4.20-5.40)
[2024-06-10 07:17] LABS: Potassium 4.7 mmol/L (3.5-5.1)
[2024-06-10 07:18] LABS: BUN Creatinine Ratio 24.7 (10-20); Calcium 9.1 mg/dl (8.6-10.3); Chol HDL Ratio 2.3 (0-5)
--- NOTE | 2024-06-10 10:45 | Hospitalist Progress Note ---
Date of Service June 10, 2024 Assessment & Plan (1) Mood disorder: Plan: Will continue to see the patient along with psychiatry team, follow with their criteria for admission to psychiatric unit. Patient was started on Abilify 15 mg at night and Ativan 2 mg at night. (2) Hypertension, essential: Plan: Blood pressure is controlled, continue with lisinopril 10 mg daily. Plan Awaiting patient to be cleared by psychiatry for their admission to psychiatric unit. Admission and Anticipated Discharge Date Admission Date: June 08, 2024 Subjective Patient was seen briefly reviewed, she is pleasant, otherwise unremarkable, spoke to behavioral health unit liaison and I was told that they would wait for infection control to cleared the patient for transfer to behavioral health unit. Physical Exam Physical Exam: VITALS: Reviewed. WEIGHT/BMI reviewed. GEN: Healthy appearing, well-developed, NAD. CV: RRR, no m/r/g. LUNGS: CTAB, no w/r/c. Results & Data Results & Data Vital Signs (Past 12 Hours) Vital Signs Temp Pulse Resp BP Pulse Ox O2 Del Method 06/10/24 07:20 36.8 C 86 16 123/83 96 Room Air Laboratory Results Laboratory Results WBC 7.70 K/ul (4.8-10.8) 06/10/24 06:37 RBC 4.09 M/uL (4.20-5.40) L 06/10/24 06:37 Hgb 12.5 g/dl (12.0-16.0) 06/10/24 06:37 Hct 37.8 % (37.0-47.0) 06/10/24 06:37 MCV 92.4 fL (80.0-100.0) 06/10/24 06:37 MCH 30.6 pg (25.0-34.0) 06/10/24 06:37 MCHC 33.1 g/dL (32.0-36.0) 06/10/24 06:37 RDW Std Deviation 51.6 fL (36.4-46.3) H 06/10/24 06:37 RDW Coeff of [place] 15.0 % (11.5-14.5) H 06/10/24 06:37 Plt Count 227 K/uL (130-400) 06/10/24 06:37 MPV 8.8 fL (9.4-12.4) L 06/10/24 06:37 Immature Gran % (Auto) 0.5 % 06/10/24 06:37 Neut % (Auto) 64.6 % 06/10/24 06:37 Lymph % (Auto) 23.9 % 06/10/24 06:37 [place] % (Auto) 8.2 % 06/10/24 06:37 Eos % (Auto) 2.5 % 06/10/24 06:37 Baso % (Auto) 0.3 % 06/10/24 06:37 Neut # (Auto) 4.98 K/uL (1.40-6.50) 06/10/24 06:37 Lymph # (Auto) 1.84 K/uL (1.20-3.40) 06/10/24 06:37 [place] # (Auto) 0.63 K/uL (0.11-0.59) H 06/10/24 06:37 Eos # (Auto) 0.19 K/uL (0.00-0.50) 06/10/24 06:37 Baso # (Auto) 0.02 K/uL (0.00-0.20) 06/10/24 06:37 Immature Gran # (Auto) 0.04 K/uL (0.01-0.20) 06/10/24 06:37 Sodium 137 mmol/L (136-145) 06/10/24 06:37 Potassium 4.7 mmol/L (3.5-5.1) 06/10/24 06:37 Chloride 104 mmol/L (98-107) 06/10/24 06:37 Carbon Dioxide 29 mmol/L (21-32) 06/10/24 06:37 Anion Gap 4 (3-11) 06/10/24 06:37 BUN 19 mg/dl (6-23) 06/10/24 06:37 Creatinine 0.77 mg/dl (0.6-1.2) 06/10/24 06:37 Est Cr Clr Drug Dosing 57.0 ml/min 06/10/24 06:37 eGFR 83.45 06/10/24 06:37 BUN/Creatinine Ratio 24.7 (10-20) H 06/10/24 06:37 Glucose 133 mg/dl (70-99(Fasting)) H 06/10/24 06:37 Estimat Average Glucose 114 mg/dl 06/09/24 17:34 Hemoglobin A1c 5.6 % (4.5-5.6) 06/09/24 17:34 Calcium 9.1 mg/dl (8.6-10.3) 06/10/24 06:37 Total Bilirubin 0.2 mg/dl (0.2-1.0) 06/08/24 00:41 AST 29 U/L (13-39) 06/08/24 00:41 ALT 26 U/L (7-52) 06/08/24 00:41 Alkaline Phosphatase 67 U/L (34-104) 06/08/24 00:41 Total Protein 6.2 gm/dl (6.0-8.3) 06/08/24 00:41 Albumin 4.1 gm/dl (3.4-5.0) 06/08/24 00:41 Globulin 2.1 gm/dl (2.5-4.0) L 06/08/24 00:41 Albumin/Globulin Ratio 2.0 (0.9-2) 06/08/24 00:41 Triglycerides 103 mg/dl (0-150) 06/10/24 06:37 Cholesterol 138 mg/dl (0-200) 06/10/24 06:37 LDL Cholesterol, Calc 58 mg/dl 06/10/24 06:37 VLDL Cholesterol, Calc 21 mg/dl (0-30) 06/10/24 06:37 HDL Cholesterol 59 mg/dl 06/10/24 06:37 Cholesterol/HDL Ratio 2.3 (0-5) 06/10/24 06:37 Vitamin B12 713 pg/ml (180-914) 06/09/24 17:34 25-OH Vitamin D Total Cancelled 06/09/24 17:34 TSH 0.982 uIu/ml (0.300-4.500) 06/08/24 00:41 Urine Color Yellow 06/08/24 01:25 Urine Appearance Clear (Clear) 06/08/24 01:25 Urine pH 6.0 (4.5-7.5) 06/08/24 01:25 Ur Specific [place] 1.025 (1.000-1.030) 06/08/24 01:25 Urine Protein Negative (Negative) 06/08/24 01:25 Urine Glucose (UA) Negative (Negative) 06/08/24 01:25 Urine Ketones Trace (Negative) H 06/08/24 01:25 Urine Blood Negative (Negative) 06/08/24 01:25 Urine Nitrite Negative (Negative) 06/08/24 01:25 Urine Bilirubin Negative (Negative) 06/08/24 01:25 Urine Urobilinogen Negative (Negative) 06/08/24 01:25 Ur Leukocyte Esterase Negative (Negative) 06/08/24 01:25 Salicylates < 3.0 mg/dl (3.0-30) L 06/08/24 00:41 Urine Opiates Screen Neg (Neg) 06/08/24 01:25 Ur Methadone, Qual Neg (Neg) 06/08/24 01:25 Urine Fentanyl Screen Neg (Neg) 06/08/24 01:25 Acetaminophen < 3 ug/ml (10-30) L 06/08/24 00:41 Urine Barbiturates Neg (Neg) 06/08/24 01:25 Ur Phencyclidine (PCP) Neg (Neg) 06/08/24 01:25 U Amphetamin/Meth Scrn Neg (Neg) 06/08/24 01:25 MDMA (Ecstasy) Screen Neg (Neg) 06/08/24 01:25 U Benzodiazepines Scrn Neg (Neg) 06/08/24 01:25 Ur Cocaine Metabolite Neg (Neg) 06/08/24 01:25 U Marijuana (THC) Screen Neg (Neg) 06/08/24 01:25 Ethyl Alcohol mg/dL < 10.0 mg/dl (<10.0) 06/08/24 00:41 Adenovirus (PCR) Not Detected (NotDetected) 06/08/24 03:44 B. pertussis DNA (PCR) Not Detected (NotDetected) 06/08/24 03:44 B.parapertussis DNA PCR Not Detected (NotDetected) 06/08/24 03:44 C. pneumoniae DNA (PCR) Not Detected (NotDetected) 06/08/24 03:44 Coronavirus OC43 (PCR) Not Detected (NotDetected) 06/08/24 03:44 Coronavirus HKU1 (PCR) Not Detected (NotDetected) 06/08/24 03:44 Coronavirus 229E (PCR) Not Detected (NotDetected) 06/08/24 03:44 SARS-CoV-2 (PCR) Not Detected (NotDetected) 06/08/24 03:44 Coronavirus NL63 (PCR) Not Detected (NotDetected) 06/08/24 03:44 Human Metapneumovir PCR Not Detected (NotDetected) 06/08/24 03:44 Influenza Type A (PCR) Not Detected (NotDetected) 06/08/24 03:44 Influenza Type B (PCR) Not Detected (NotDetected) 06/08/24 03:44 M. pneumoniae (PCR) Not Detected (NotDetected) 06/08/24 03:44 Parainfluenza 1 (PCR) Not Detected (NotDetected) 06/08/24 03:44 Parainfluenza 2 (PCR) Not Detected (NotDetected) 06/08/24 03:44 Parainfluenza 3 (PCR) Not Detected (NotDetected) 06/08/24 03:44 Parainfluenza 4 (PCR) Not Detected (NotDetected) 06/08/24 03:44 RSV (PCR) Not Detected (NotDetected) 06/08/24 03:44 Entero/Rhino (PCR) DETECTED (NotDetected) A 06/08/24 03:44 SARS-CoV-2, RNA, NAAT NEGATIVE (NEGATIVE) 06/08/24 00:54 Medications Administered Current Inpatient Medications Acetaminophen (Acetaminophen 325 Mg Tab) 650 mg PO QID PRN PRN Reason: pain/fever Stop: 07/08/24 06:57 Last Admin: 06/10/24 07:56 Dose: 650 mg Aripiprazole (Aripiprazole 15 Mg Tab) 15 mg PO HS [place] Stop: 07/09/24 20:59 Last Admin: 06/09/24 21:27 Dose: 15 mg Guaifenesin (Guaifenesin 600 Mg Tabcr) 600 mg PO Q12 [place] Stop: 07/09/24 20:59 Last Admin: 06/10/24 10:23 Dose: 600 mg Hydroxyzine HCl (Hydroxyzine Hcl 25 Mg Tab) 50 mg PO Q6 PRN PRN Reason: anxiety/insomnia Stop: 07/08/24 12:01 Promethazine HCl (Phenergan) 6.25 mg in 50.25 mls @ 201 mls/hr IV Q6H PRN PRN Reason: Nausea And Vomiting Stop: 07/08/24 06:57 Lisinopril (Lisinopril 10 Mg Tab) 10 mg PO DAILY [place] Stop: 07/09/24 08:59 Last Admin: 06/10/24 10:31 Dose: 10 mg Lorazepam (Lorazepam 1 Mg Tab) 2 mg PO HS [place] Stop: 07/08/24 20:59 Last Admin: 06/09/24 21:28 Dose: 2 mg Olanzapine (Olanzapine Zydis 5 Mg Orally Dis. Tab) 5 mg PO Q8 PRN PRN Reason: Agitation Stop: 07/08/24 13:59
--- NOTE | 2024-06-10 12:32 | Psychiatric Progress Note ---
Date of Service June 10, 2024 Impression / Recommendations Impression Lucrecia Villela is a domiciled with friend 68-year-old white female history of bipolar disorder who was brought in by her friend Sara for concerns of manic behavior and suicidal ideation in the context of debt stressors (brother and boyfriend passing away from cancer) and recent initiation of SSRI antidepressant (escitalopram). Admitted to medicine and psychiatry following as PSOC. Presentation consistent with bipolar disorder mixed manic episode. She presented in a euphoric state, high energy, poor sleep, racing thoughts, recent suicidal ideation, tangential and hyperverbal speech. Collateral reveals recent threatening behaviors, impulsive spending, mood lability, limited sleep. Patient has a history of major depressive episodes, past bipolar diagnosis, medication trials. Current episode may have been precipitated by stressors or initiation of SSRI antidepressant. Patient presents poor insight into condition, poor memory recollection of recent events. A: Presenting improved sleep and is less tangential today on conversation. Continues to present a euphoric mood with high energy. Tolerating Abilify well with no EPS and we will maintain current dose. She presents a history of possible past manic episodes possibly triggered by past psychotropics. She denies suicidal ideation. Plan to down titrate Lorazepam and start hydroxyzine for sleep. Labs reviewed: Vit B12, Vit D, TSH, HgbA1C, lipid panel unremarkable. Pt continues to have paresthesias in lower extremities and advised to f/u with PCP if does not resolve with mood episode. Overall, I spent a total of 45 minutes with this case including review of chart records, nursing report, review of lab work, direct evaluation of the patient at bedside, counseling the patient, discussion of the patient with the hospitalist provider, discussion with the psychiatric liaison during clinical rounds, and documentation in the electronic health record. (1) Bipolar disorder: (2) Impaired insight: (3) Prolonged QT interval: (4) Rhinovirus infection: (5) Hypertension, essential: (6) Migraine: (7) Paresthesia of both lower extremities: Plan 06/10/24: -Decrease Lorazepam to 1mg HS -Start Hydroxyzine 50mg HS -Patient may have regular food tray (low risk for SI) 06/09/24: -Increase Aripiprazole to 15mg HS -Guaifenesin 600mg Q12hr PRN for congestion -Benzocaine throat lozenge PRN for cough -Labs: Fasting lipid profile, HgbA1C, Vit D, Vit B12 06/08/24: -Hold home Escitalopram -Start Lorazepam 2mg HS -Start Aripiprazole 10mg HS -Hydroxyzine 50mg Q6hr PRN for anxiety/insomnia -Olanzapine ODT 5mg Q8hr for agitation -No indication for bedside sitter Risk Factors Assessment Do You Have Access To A Gun?: No Protective Factors Assessment Employed: No Interval History Identifying Information Lucrecia Villela (Betsy) is a domiciled with friend 68-year-old white female history of bipolar disorder who was brought in by her friend Sara for concerns of manic behavior and suicidal ideation in the context of debt stressors (brother and boyfriend passing away from cancer) and recent initiation of SSRI antidepressant (escitalopram). Admitted to medicine and psychiatry following as [facility]. Chief Complaint "Doing great" Subjective Subjective Patient was seen & assessed and interval progress reviewed with treatment team nursing and social work The patient is initially seen watching TV. 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 She reports sleeping well. Rates her energy at as 5 out of 10. Mood 7 out of 10. She reports that her friend Sara has problems with depression and anxiety and wish that she would face them. Reports that her friend did something years ago that would go against the 10 commandments. She denies having anxiety, racing thoughts. At times to the interaction she is distracted and has trouble staying focused. She denies SI and says that she "values her life". She denies muscle rigidity or stiffness. She reports being frustrated that she attempts to talk to other peers in the hospital in the rooms but staff keeps asking her to come back to her room. She reports when she was younger she was diagnosed bipolar disorder by Dr. Hicks but does not believe she has it. She has seen multiple psychiatrists in the past. Says when she was younger she took Strattera and she had a "ton of energy and ran around like a crazy person". She reports "cleaning everything in the house even things I did not need to clean". He "felt like I was taking amphetamine". She reported "decided to be allergic to Strattera after that". When discussing potential discharge date with her she reports wanting to stay in the hospital for as long as she can and that she loves that here. Patient seems overzealous and very joyful. Physical Exam Mental Examination Appearance: Well Groomed Eye Contact: Maintains Eye Contact Motor Behavior: Restless Speech: Rambling Mood: Euphoric Affect: Euphoric and Happy Thought Process: Circumstantial Thought Content: Intact and Racing Hallucinations: None Insight: Poor Judgement: Poor Vital Signs (Past 24 Hours) Last Vital Signs Temp 36.8 C 06/10/24 07:20 Pulse 86 06/10/24 07:20 Resp 16 06/10/24 07:20 BP 123/83 06/10/24 07:20 Pulse Ox 96 06/10/24 07:20 O2 Del Method Room Air 06/10/24 07:20 Results & Data ([facility]) Laboratory Results Laboratory Results - last 24 hr 06/08/24 06/09/24 06/10/24 00:54 17:34 06:37 WBC 7.70 RBC 4.09 L Hgb 12.5 Hct 37.8 MCV 92.4 MCH 30.6 MCHC 33.1 RDW Std Deviation 51.6 H RDW Coeff of [place] 15.0 H Plt Count 227 MPV 8.8 L Immature Gran % (Auto) 0.5 Neut % (Auto) 64.6 Lymph % (Auto) 23.9 [place] % (Auto) 8.2 Eos % (Auto) 2.5 Baso % (Auto) 0.3 Neut # (Auto) 4.98 Lymph # (Auto) 1.84 [place] # (Auto) 0.63 H Eos # (Auto) 0.19 Baso # (Auto) 0.02 Immature Gran # (Auto) 0.04 Sodium 137 Potassium 4.7 Chloride 104 Carbon Dioxide 29 Anion Gap 4 BUN 19 Creatinine 0.77 Est Cr Clr Drug Dosing 57.0 eGFR 83.45 BUN/Creatinine Ratio 24.7 H Glucose 133 H Estimat Average Glucose 114 Hemoglobin A1c 5.6 Calcium 9.1 Triglycerides 103 Cholesterol 138 LDL Cholesterol, Calc 58 VLDL Cholesterol, Calc 21 HDL Cholesterol 59 Cholesterol/HDL Ratio 2.3 Vitamin B12 713 25-OH Vitamin D Total 49.6 Cancelled Current Inpatient Medications Current Inpatient Medications: Current Inpatient Medications Acetaminophen (Acetaminophen 325 Mg Tab) 650 mg PO QID PRN PRN Reason: pain/fever Stop: 07/08/24 06:57 Last Admin: 06/10/24 07:56 Dose: 650 mg Aripiprazole (Aripiprazole 15 Mg Tab) 15 mg PO HS [place] Stop: 07/09/24 20:59 Last Admin: 06/09/24 21:27 Dose: 15 mg Guaifenesin (Guaifenesin 600 Mg Tabcr) 600 mg PO Q12 [place] Stop: 07/09/24 20:59 Last Admin: 06/10/24 10:23 Dose: 600 mg Hydroxyzine HCl (Hydroxyzine Hcl 25 Mg Tab) 50 mg PO Q6 PRN PRN Reason: anxiety/insomnia Stop: 07/08/24 12:01 Hydroxyzine HCl (Hydroxyzine Hcl 25 Mg Tab) 50 mg PO HS [place] Stop: 07/10/24 20:59 Promethazine HCl (Phenergan) 6.25 mg in 50.25 mls @ 201 mls/hr IV Q6H PRN PRN Reason: Nausea And Vomiting Stop: 07/08/24 06:57 Lisinopril (Lisinopril 10 Mg Tab) 10 mg PO DAILY [place] Stop: 07/09/24 08:59 Last Admin: 06/10/24 10:31 Dose: 10 mg Lorazepam (Lorazepam 1 Mg Tab) 1 mg PO HS [place] Stop: 07/10/24 20:59 Olanzapine (Olanzapine Zydis 5 Mg Orally Dis. Tab) 5 mg PO Q8 PRN PRN Reason: Agitation Stop: 07/08/24 13:59 Mental Health & Subst Abuse Tx Psychiatrist Date Of Appointment With Psychiatric Provider: CLARA Therapist Name of Therapist: NA Lay Out Worker Name of Lay Out Worker: NA Post Discharge Appointments Primary Care Physician Name Of Family Doctor/PCP: Dr. Ramesh Fernández
[2024-06-10] MEDS: LORazepam 1 MG TAB PO SCH (22:04)
[2024-06-10] MEDS: hydrOXYzine HCl 25 MG TAB PO SCH (22:49)
--- NOTE | 2024-06-11 10:12 | Hospitalist Progress Note ---
Date of Service June 11, 2024 Assessment & Plan (1) Mood disorder: Plan: Will continue to see the patient along with psychiatry team, follow with their criteria for admission to psychiatric unit. Patient was started on Abilify 15 mg at night and Ativan 2 mg at night. (2) Hypertension, essential: Plan: Blood pressure is stable, continue with lisinopril 10 mg daily. Plan Potentially patient need to stay per infection control until 06/22/2024 prior to be transferred to U. Admission and Anticipated Discharge Date Admission Date: June 08, 2024 Subjective Patient was seen briefly reviewed, no issue otherwise, she is apparently supposed to stay on until 06/22/2024 per infection control prior to be moved to U. Physical Exam Physical Exam: VITALS: Reviewed. WEIGHT/BMI reviewed. GEN: Healthy appearing, well-developed, NAD. CV: RRR, no m/r/g. LUNGS: CTAB, no w/r/c. Results & Data Results & Data Vital Signs (Past 12 Hours) Vital Signs Temp Pulse Resp BP Pulse Ox O2 Del Method 06/11/24 07:03 36.8 C 104 H 16 146/89 H 96 Room Air Diagnostic Findings Laboratory Results WBC 7.70 K/ul (4.8-10.8) 06/10/24 06:37 RBC 4.09 M/uL (4.20-5.40) L 06/10/24 06:37 Hgb 12.5 g/dl (12.0-16.0) 06/10/24 06:37 Hct 37.8 % (37.0-47.0) 06/10/24 06:37 MCV 92.4 fL (80.0-100.0) 06/10/24 06:37 MCH 30.6 pg (25.0-34.0) 06/10/24 06:37 MCHC 33.1 g/dL (32.0-36.0) 06/10/24 06:37 RDW Std Deviation 51.6 fL (36.4-46.3) H 06/10/24 06:37 RDW Coeff of [place] 15.0 % (11.5-14.5) H 06/10/24 06:37 Plt Count 227 K/uL (130-400) 06/10/24 06:37 MPV 8.8 fL (9.4-12.4) L 06/10/24 06:37 Immature Gran % (Auto) 0.5 % 06/10/24 06:37 Neut % (Auto) 64.6 % 06/10/24 06:37 Lymph % (Auto) 23.9 % 06/10/24 06:37 [place] % (Auto) 8.2 % 06/10/24 06:37 Eos % (Auto) 2.5 % 06/10/24 06:37 Baso % (Auto) 0.3 % 06/10/24 06:37 Neut # (Auto) 4.98 K/uL (1.40-6.50) 06/10/24 06:37 Lymph # (Auto) 1.84 K/uL (1.20-3.40) 06/10/24 06:37 [place] # (Auto) 0.63 K/uL (0.11-0.59) H 06/10/24 06:37 Eos # (Auto) 0.19 K/uL (0.00-0.50) 06/10/24 06:37 Baso # (Auto) 0.02 K/uL (0.00-0.20) 06/10/24 06:37 Immature Gran # (Auto) 0.04 K/uL (0.01-0.20) 06/10/24 06:37 Sodium 137 mmol/L (136-145) 06/10/24 06:37 Potassium 4.7 mmol/L (3.5-5.1) 06/10/24 06:37 Chloride 104 mmol/L (98-107) 06/10/24 06:37 Carbon Dioxide 29 mmol/L (21-32) 06/10/24 06:37 Anion Gap 4 (3-11) 06/10/24 06:37 BUN 19 mg/dl (6-23) 06/10/24 06:37 Creatinine 0.77 mg/dl (0.6-1.2) 06/10/24 06:37 Est Cr Clr Drug Dosing 57.0 ml/min 06/10/24 06:37 eGFR 83.45 06/10/24 06:37 BUN/Creatinine Ratio 24.7 (10-20) H 06/10/24 06:37 Glucose 133 mg/dl (70-99(Fasting)) H 06/10/24 06:37 Estimat Average Glucose 114 mg/dl 06/09/24 17:34 Hemoglobin A1c 5.6 % (4.5-5.6) 06/09/24 17:34 Calcium 9.1 mg/dl (8.6-10.3) 06/10/24 06:37 Total Bilirubin 0.2 mg/dl (0.2-1.0) 06/08/24 00:41 AST 29 U/L (13-39) 06/08/24 00:41 ALT 26 U/L (7-52) 06/08/24 00:41 Alkaline Phosphatase 67 U/L (34-104) 06/08/24 00:41 Total Protein 6.2 gm/dl (6.0-8.3) 06/08/24 00:41 Albumin 4.1 gm/dl (3.4-5.0) 06/08/24 00:41 Globulin 2.1 gm/dl (2.5-4.0) L 06/08/24 00:41 Albumin/Globulin Ratio 2.0 (0.9-2) 06/08/24 00:41 Triglycerides 103 mg/dl (0-150) 06/10/24 06:37 Cholesterol 138 mg/dl (0-200) 06/10/24 06:37 LDL Cholesterol, Calc 58 mg/dl 06/10/24 06:37 VLDL Cholesterol, Calc 21 mg/dl (0-30) 06/10/24 06:37 HDL Cholesterol 59 mg/dl 06/10/24 06:37 Cholesterol/HDL Ratio 2.3 (0-5) 06/10/24 06:37 Vitamin B12 713 pg/ml (180-914) 06/09/24 17:34 25-OH Vitamin D Total Cancelled 06/09/24 17:34 TSH 0.982 uIu/ml (0.300-4.500) 06/08/24 00:41 Urine Color Yellow 06/08/24 01:25 Urine Appearance Clear (Clear) 06/08/24 01:25 Urine pH 6.0 (4.5-7.5) 06/08/24 01:25 Ur Specific [place] 1.025 (1.000-1.030) 06/08/24 01:25 Urine Protein Negative (Negative) 06/08/24 01:25 Urine Glucose (UA) Negative (Negative) 06/08/24 01:25 Urine Ketones Trace (Negative) H 06/08/24 01:25 Urine Blood Negative (Negative) 06/08/24 01:25 Urine Nitrite Negative (Negative) 06/08/24 01:25 Urine Bilirubin Negative (Negative) 06/08/24 01:25 Urine Urobilinogen Negative (Negative) 06/08/24 01:25 Ur Leukocyte Esterase Negative (Negative) 06/08/24 01:25 Salicylates < 3.0 mg/dl (3.0-30) L 06/08/24 00:41 Urine Opiates Screen Neg (Neg) 06/08/24 01:25 Ur Methadone, Qual Neg (Neg) 06/08/24 01:25 Urine Fentanyl Screen Neg (Neg) 06/08/24 01:25 Acetaminophen < 3 ug/ml (10-30) L 06/08/24 00:41 Urine Barbiturates Neg (Neg) 06/08/24 01:25 Ur Phencyclidine (PCP) Neg (Neg) 06/08/24 01:25 U Amphetamin/Meth Scrn Neg (Neg) 06/08/24 01:25 MDMA (Ecstasy) Screen Neg (Neg) 06/08/24 01:25 U Benzodiazepines Scrn Neg (Neg) 06/08/24 01:25 Ur Cocaine Metabolite Neg (Neg) 06/08/24 01:25 U Marijuana (THC) Screen Neg (Neg) 06/08/24 01:25 Ethyl Alcohol mg/dL < 10.0 mg/dl (<10.0) 06/08/24 00:41 Adenovirus (PCR) Not Detected (NotDetected) 06/08/24 03:44 B. pertussis DNA (PCR) Not Detected (NotDetected) 06/08/24 03:44 B.parapertussis DNA PCR Not Detected (NotDetected) 06/08/24 03:44 C. pneumoniae DNA (PCR) Not Detected (NotDetected) 06/08/24 03:44 Coronavirus OC43 (PCR) Not Detected (NotDetected) 06/08/24 03:44 Coronavirus HKU1 (PCR) Not Detected (NotDetected) 06/08/24 03:44 Coronavirus 229E (PCR) Not Detected (NotDetected) 06/08/24 03:44 SARS-CoV-2 (PCR) Not Detected (NotDetected) 06/08/24 03:44 Coronavirus NL63 (PCR) Not Detected (NotDetected) 06/08/24 03:44 Human Metapneumovir PCR Not Detected (NotDetected) 06/08/24 03:44 Influenza Type A (PCR) Not Detected (NotDetected) 06/08/24 03:44 Influenza Type B (PCR) Not Detected (NotDetected) 06/08/24 03:44 M. pneumoniae (PCR) Not Detected (NotDetected) 06/08/24 03:44 Parainfluenza 1 (PCR) Not Detected (NotDetected) 06/08/24 03:44 Parainfluenza 2 (PCR) Not Detected (NotDetected) 06/08/24 03:44 Parainfluenza 3 (PCR) Not Detected (NotDetected) 06/08/24 03:44 Parainfluenza 4 (PCR) Not Detected (NotDetected) 06/08/24 03:44 RSV (PCR) Not Detected (NotDetected) 06/08/24 03:44 Entero/Rhino (PCR) DETECTED (NotDetected) A 06/08/24 03:44 SARS-CoV-2, RNA, NAAT NEGATIVE (NEGATIVE) 06/08/24 00:54 Medications Administered Current Inpatient Medications Acetaminophen (Acetaminophen 325 Mg Tab) 650 mg PO QID PRN PRN Reason: pain/fever Stop: 07/08/24 06:57 Last Admin: 06/11/24 09:10 Dose: 650 mg Aripiprazole (Aripiprazole 15 Mg Tab) 15 mg PO HS [place] Stop: 07/09/24 20:59 Last Admin: 06/10/24 22:03 Dose: 15 mg Guaifenesin (Guaifenesin 600 Mg Tabcr) 600 mg PO Q12 [place] Stop: 07/09/24 20:59 Last Admin: 06/11/24 09:10 Dose: 600 mg Hydroxyzine HCl (Hydroxyzine Hcl 25 Mg Tab) 50 mg PO Q6 PRN PRN Reason: anxiety/insomnia Stop: 07/08/24 12:01 Hydroxyzine HCl (Hydroxyzine Hcl 25 Mg Tab) 50 mg PO HS [place] Stop: 07/10/24 20:59 Last Admin: 06/10/24 22:49 Dose: 50 mg Promethazine HCl (Phenergan) 6.25 mg in 50.25 mls @ 201 mls/hr IV Q6H PRN PRN Reason: Nausea And Vomiting Stop: 07/08/24 06:57 Lisinopril (Lisinopril 10 Mg Tab) 10 mg PO DAILY [place] Stop: 07/09/24 08:59 Last Admin: 06/11/24 09:10 Dose: 10 mg Lorazepam (Lorazepam 1 Mg Tab) 1 mg PO HS [facility] Stop: 07/10/24 20:59 Last Admin: 06/10/24 22:04 Dose: 1 mg Olanzapine (Olanzapine Zydis 5 Mg Orally Dis. Tab) 5 mg PO Q8 PRN PRN Reason: Agitation Stop: 07/08/24 13:59
--- NOTE | 2024-06-11 12:34 | Psychiatric Progress Note ---
Date of Service June 11, 2024 Impression / Recommendations Impression Lucrecia Villela is a domiciled with friend 68-year-old white female history of bipolar disorder who was brought in by her friend Sara for concerns of manic behavior and suicidal ideation in the context of debt stressors (brother and boyfriend passing away from cancer) and recent initiation of SSRI antidepressant (escitalopram). Admitted to medicine and psychiatry following as PSOC. Presentation consistent with bipolar disorder mixed manic episode. She presented in a euphoric state, high energy, poor sleep, racing thoughts, recent suicidal ideation, tangential and hyperverbal speech. Collateral reveals recent threatening behaviors, impulsive spending, mood lability, limited sleep. Patient has a history of major depressive episodes, past bipolar diagnosis, medication trials. Current episode may have been precipitated by stressors or initiation of SSRI antidepressant. Patient presents poor insight into condition, poor memory recollection of recent events. A: Patient presented limited sleep on lower dose of Lorazepam and will increase back to 2mg HS. Continues to present a euphoric mood with high energy, restlessness, distractibility, hyperverbal and circumstantial/ tangential. Reported improvement in racing thoughts. Given initial prolonged QT interval, plan to repeat EKG. Patient is open to Abilify long acting prior to discharge and may benefit given limited insight into bipolar condition and questions about future medication adherence. Overall, I spent a total of 45 minutes with this case including review of chart records, nursing report, review of lab work, direct evaluation of the patient at bedside, counseling the patient, discussion of the patient with the hospitalist provider, discussion with the psychiatric liaison during clinical rounds, and documentation in the electronic health record. (1) Bipolar 1 disorder with moderate galen: (2) Impaired insight: (3) Prolonged QT interval: (4) Rhinovirus infection: (5) Hypertension, essential: (6) Migraine: (7) Paresthesia of both lower extremities: Plan 06/11/24: -Increase Lorazepam to 2mg HS -Repeat EKG 06/10/24: -Decrease Lorazepam to 1mg HS -Start Hydroxyzine 50mg HS -Patient may have regular food tray (low risk for SI) 06/09/24: -Increase Aripiprazole to 15mg HS -Guaifenesin 600mg Q12hr PRN for congestion -Benzocaine throat lozenge PRN for cough -Labs: Fasting lipid profile, HgbA1C, Vit D, Vit B12 06/08/24: -Hold home Escitalopram -Start Lorazepam 2mg HS -Start Aripiprazole 10mg HS -Hydroxyzine 50mg Q6hr PRN for anxiety/insomnia -Olanzapine ODT 5mg Q8hr for agitation -No indication for bedside sitter Risk Factors Assessment Do You Have Access To A Gun?: No Protective Factors Assessment Employed: No Interval History Identifying Information Lucrecia Villela (Betsy) is a domiciled with friend 68-year-old white female history of bipolar disorder who was brought in by her friend Sara for concerns of manic behavior and suicidal ideation in the context of debt stressors (brother and boyfriend passing away from cancer) and recent initiation of SSRI antidepressant (escitalopram). Admitted to medicine and psychiatry following as [facility]. Chief Complaint "Happy to be here" Subjective Subjective Patient was seen & assessed and interval progress reviewed with treatment team nursing and social work Nursing reports indicate 5 hours of sleep. Throughout the interview patient is hyperverbal and tangential. At times she is very restless and gets distracted and has trouble sitting still. She reports not sleeping as well last night and feels "pretty energetic". Rates a fair mood. Says she has been struggling with grief, as a shopaholic, and sometimes has words that do not always come out the right way. She alludes to statements that she has made to her friend Sara that she does not recall making. She reports that her shopping sprees are episodic and that she has so much junk. She reports being unable to work her phone and when I tell her she can use the hospital phone to make ongoing phone calls she reports being in "shock". And appears ecstatic that someone would allow her to use a phone. She says that the food is good here and that everyone has been wonderful and that she could live here for the rest of her life. She denies any muscle rigidity or inner feelings of restlessness. Complains of continued sore throat and cough. Endorsees racing thoughts since admission. Physical Exam Mental Examination Appearance: Disheveled Eye Contact: Maintains Eye Contact Motor Behavior: Restless Speech: Rambling Mood: Euphoric Affect: Euphoric and Happy Thought Process: Circumstantial, Racing and Tangential Thought Content: Intact and Racing Hallucinations: None Insight: Poor Judgement: Poor Vital Signs (Past 24 Hours) Last Vital Signs Temp 36.8 C 06/11/24 07:03 Pulse 104 H 06/11/24 07:03 Resp 16 06/11/24 07:03 BP 146/89 H 06/11/24 07:03 Pulse Ox 96 06/11/24 07:03 O2 Del Method Room Air 06/11/24 07:03 Results & Data ([facility]) Current Inpatient Medications Current Inpatient Medications: Current Inpatient Medications Acetaminophen (Acetaminophen 325 Mg Tab) 650 mg PO QID PRN PRN Reason: pain/fever Stop: 07/08/24 06:57 Last Admin: 06/11/24 09:10 Dose: 650 mg Aripiprazole (Aripiprazole 15 Mg Tab) 15 mg PO HS [facility] Stop: 07/09/24 20:59 Last Admin: 06/10/24 22:03 Dose: 15 mg Guaifenesin (Guaifenesin 600 Mg Tabcr) 600 mg PO Q12 [place] Stop: 07/09/24 20:59 Last Admin: 06/11/24 09:10 Dose: 600 mg Hydroxyzine HCl (Hydroxyzine Hcl 25 Mg Tab) 50 mg PO Q6 PRN PRN Reason: anxiety/insomnia Stop: 07/08/24 12:01 Hydroxyzine HCl (Hydroxyzine Hcl 25 Mg Tab) 50 mg PO HS [facility] Stop: 07/10/24 20:59 Last Admin: 06/10/24 22:49 Dose: 50 mg Promethazine HCl (Phenergan) 6.25 mg in 50.25 mls @ 201 mls/hr IV Q6H PRN PRN Reason: Nausea And Vomiting Stop: 07/08/24 06:57 Lisinopril (Lisinopril 10 Mg Tab) 10 mg PO DAILY [place] Stop: 07/09/24 08:59 Last Admin: 06/11/24 09:10 Dose: 10 mg Lorazepam (Lorazepam 1 Mg Tab) 2 mg PO HS [place] Stop: 07/11/24 20:59 Olanzapine (Olanzapine Zydis 5 Mg Orally Dis. Tab) 5 mg PO Q8 PRN PRN Reason: Agitation Stop: 07/08/24 13:59 Mental Health & Subst Abuse Tx Psychiatrist Date Of Appointment With Psychiatric Provider: NA Therapist Name of Therapist: NA Commercial Real Estate Underwriter Name of Commercial Real Estate Underwriter: NA Post Discharge Appointments Primary Care Physician Name Of Family Doctor/PCP: Dr. Ramesh Fernández - post hospitalization PCP appt Primary Care Date of Future Appointment with PCP: 06/18/24 Time of Appointment with PCP: 9:30AM Provider Appointment Comment: In person - [id number] [facility] [id number]
[2024-06-11] MEDS: LORazepam 1 MG TAB PO SCH (21:14)
--- NOTE | 2024-06-12 08:43 | Electrocardiogram Report ---
Test Reason : Blood Pressure : */* mmHG Vent. Rate : 111 BPM Atrial Rate : 111 BPM P-R Int : 120 ms QRS Dur : 88 ms QT Int : 330 ms P-R-T Axes : 69 29 60 degrees QTcB Int : 448 ms Sinus tachycardia Otherwise normal ECG When compared with ECG of 08-Jun-2024 01:41, No significant change was found Confirmed by Hector Cisneros ([id number]) on 06/12/2024 8:42:30 AM Referred By: REFERRED SELF Confirmed By: Hector Cisneros
--- NOTE | 2024-06-12 09:59 | Hospitalist Progress Note ---
Date of Service June 12, 2024 Assessment & Plan (1) Mood disorder: Plan: Continue current care with psychiatric team on board with Abilify and Ativan as needed. (2) Hypertension, essential: Plan: Blood pressure is stable, continue with lisinopril 10 mg daily. Plan Potentially patient need to stay per infection control until 06/22/2024 prior to be transferred to [facility]. Admission and Anticipated Discharge Date Admission Date: June 08, 2024 Subjective Patient was seen briefly reviewed, no issue otherwise, she is apparently supposed to stay on until 06/22/2024 per infection control prior to be moved to [facility]. Physical Exam Physical Exam: VITALS: Reviewed. WEIGHT/BMI reviewed. GEN: Healthy appearing, well-developed, NAD. CV: RRR, no m/r/g. LUNGS: CTAB, no w/r/c. Results & Data Results & Data Vital Signs (Past 12 Hours) Vital Signs Temp Pulse Resp BP Pulse Ox O2 Del Method 06/12/24 08:26 36.9 C 90 18 139/88 95 Room Air 06/12/24 07:30 Room Air Laboratory Results Laboratory Results WBC 7.70 K/ul (4.8-10.8) 06/10/24 06:37 RBC 4.09 M/uL (4.20-5.40) L 06/10/24 06:37 Hgb 12.5 g/dl (12.0-16.0) 06/10/24 06:37 Hct 37.8 % (37.0-47.0) 06/10/24 06:37 MCV 92.4 fL (80.0-100.0) 06/10/24 06:37 MCH 30.6 pg (25.0-34.0) 06/10/24 06:37 MCHC 33.1 g/dL (32.0-36.0) 06/10/24 06:37 RDW Std Deviation 51.6 fL (36.4-46.3) H 06/10/24 06:37 RDW Coeff of [place] 15.0 % (11.5-14.5) H 06/10/24 06:37 Plt Count 227 K/uL (130-400) 06/10/24 06:37 MPV 8.8 fL (9.4-12.4) L 06/10/24 06:37 Immature Gran % (Auto) 0.5 % 06/10/24 06:37 Neut % (Auto) 64.6 % 06/10/24 06:37 Lymph % (Auto) 23.9 % 06/10/24 06:37 [place] % (Auto) 8.2 % 06/10/24 06:37 Eos % (Auto) 2.5 % 06/10/24 06:37 Baso % (Auto) 0.3 % 06/10/24 06:37 Neut # (Auto) 4.98 K/uL (1.40-6.50) 06/10/24 06:37 Lymph # (Auto) 1.84 K/uL (1.20-3.40) 06/10/24 06:37 [place] # (Auto) 0.63 K/uL (0.11-0.59) H 06/10/24 06:37 Eos # (Auto) 0.19 K/uL (0.00-0.50) 06/10/24 06:37 Baso # (Auto) 0.02 K/uL (0.00-0.20) 06/10/24 06:37 Immature Gran # (Auto) 0.04 K/uL (0.01-0.20) 06/10/24 06:37 Sodium 137 mmol/L (136-145) 06/10/24 06:37 Potassium 4.7 mmol/L (3.5-5.1) 06/10/24 06:37 Chloride 104 mmol/L (98-107) 06/10/24 06:37 Carbon Dioxide 29 mmol/L (21-32) 06/10/24 06:37 Anion Gap 4 (3-11) 06/10/24 06:37 BUN 19 mg/dl (6-23) 06/10/24 06:37 Creatinine 0.77 mg/dl (0.6-1.2) 06/10/24 06:37 Est Cr Clr Drug Dosing 57.0 ml/min 06/10/24 06:37 eGFR 83.45 06/10/24 06:37 BUN/Creatinine Ratio 24.7 (10-20) H 06/10/24 06:37 Glucose 133 mg/dl (70-99(Fasting)) H 06/10/24 06:37 Estimat Average Glucose 114 mg/dl 06/09/24 17:34 Hemoglobin A1c 5.6 % (4.5-5.6) 06/09/24 17:34 Calcium 9.1 mg/dl (8.6-10.3) 06/10/24 06:37 Total Bilirubin 0.2 mg/dl (0.2-1.0) 06/08/24 00:41 AST 29 U/L (13-39) 06/08/24 00:41 ALT 26 U/L (7-52) 06/08/24 00:41 Alkaline Phosphatase 67 U/L (34-104) 06/08/24 00:41 Total Protein 6.2 gm/dl (6.0-8.3) 06/08/24 00:41 Albumin 4.1 gm/dl (3.4-5.0) 06/08/24 00:41 Globulin 2.1 gm/dl (2.5-4.0) L 06/08/24 00:41 Albumin/Globulin Ratio 2.0 (0.9-2) 06/08/24 00:41 Triglycerides 103 mg/dl (0-150) 06/10/24 06:37 Cholesterol 138 mg/dl (0-200) 06/10/24 06:37 LDL Cholesterol, Calc 58 mg/dl 06/10/24 06:37 VLDL Cholesterol, Calc 21 mg/dl (0-30) 06/10/24 06:37 HDL Cholesterol 59 mg/dl 06/10/24 06:37 Cholesterol/HDL Ratio 2.3 (0-5) 06/10/24 06:37 Vitamin B12 713 pg/ml (180-914) 06/09/24 17:34 25-OH Vitamin D Total Cancelled 06/09/24 17:34 TSH 0.982 uIu/ml (0.300-4.500) 06/08/24 00:41 Urine Color Yellow 06/08/24 01:25 Urine Appearance Clear (Clear) 06/08/24 01:25 Urine pH 6.0 (4.5-7.5) 06/08/24 01:25 Ur Specific [place] 1.025 (1.000-1.030) 06/08/24 01:25 Urine Protein Negative (Negative) 06/08/24 01:25 Urine Glucose (UA) Negative (Negative) 06/08/24 01:25 Urine Ketones Trace (Negative) H 06/08/24 01:25 Urine Blood Negative (Negative) 06/08/24 01:25 Urine Nitrite Negative (Negative) 06/08/24 01:25 Urine Bilirubin Negative (Negative) 06/08/24 01:25 Urine Urobilinogen Negative (Negative) 06/08/24 01:25 Ur Leukocyte Esterase Negative (Negative) 06/08/24 01:25 Salicylates < 3.0 mg/dl (3.0-30) L 06/08/24 00:41 Urine Opiates Screen Neg (Neg) 06/08/24 01:25 Ur Methadone, Qual Neg (Neg) 06/08/24 01:25 Urine Fentanyl Screen Neg (Neg) 06/08/24 01:25 Acetaminophen < 3 ug/ml (10-30) L 06/08/24 00:41 Urine Barbiturates Neg (Neg) 06/08/24 01:25 Ur Phencyclidine (PCP) Neg (Neg) 06/08/24 01:25 U Amphetamin/Meth Scrn Neg (Neg) 06/08/24 01:25 MDMA (Ecstasy) Screen Neg (Neg) 06/08/24 01:25 U Benzodiazepines Scrn Neg (Neg) 06/08/24 01:25 Ur Cocaine Metabolite Neg (Neg) 06/08/24 01:25 U Marijuana (THC) Screen Neg (Neg) 06/08/24 01:25 Ethyl Alcohol mg/dL < 10.0 mg/dl (<10.0) 06/08/24 00:41 Adenovirus (PCR) Not Detected (NotDetected) 06/08/24 03:44 B. pertussis DNA (PCR) Not Detected (NotDetected) 06/08/24 03:44 B.parapertussis DNA PCR Not Detected (NotDetected) 06/08/24 03:44 C. pneumoniae DNA (PCR) Not Detected (NotDetected) 06/08/24 03:44 Coronavirus OC43 (PCR) Not Detected (NotDetected) 06/08/24 03:44 Coronavirus HKU1 (PCR) Not Detected (NotDetected) 06/08/24 03:44 Coronavirus 229E (PCR) Not Detected (NotDetected) 06/08/24 03:44 SARS-CoV-2 (PCR) Not Detected (NotDetected) 06/08/24 03:44 Coronavirus NL63 (PCR) Not Detected (NotDetected) 06/08/24 03:44 Human Metapneumovir PCR Not Detected (NotDetected) 06/08/24 03:44 Influenza Type A (PCR) Not Detected (NotDetected) 06/08/24 03:44 Influenza Type B (PCR) Not Detected (NotDetected) 06/08/24 03:44 M. pneumoniae (PCR) Not Detected (NotDetected) 06/08/24 03:44 Parainfluenza 1 (PCR) Not Detected (NotDetected) 06/08/24 03:44 Parainfluenza 2 (PCR) Not Detected (NotDetected) 06/08/24 03:44 Parainfluenza 3 (PCR) Not Detected (NotDetected) 06/08/24 03:44 Parainfluenza 4 (PCR) Not Detected (NotDetected) 06/08/24 03:44 RSV (PCR) Not Detected (NotDetected) 06/08/24 03:44 Entero/Rhino (PCR) DETECTED (NotDetected) A 06/08/24 03:44 SARS-CoV-2, RNA, NAAT NEGATIVE (NEGATIVE) 06/08/24 00:54
--- NOTE | 2024-06-12 14:51 | Psychiatric Progress Note ---
Date of Service June 12, 2024 Impression / Recommendations Impression Lucrecia Villela is a domiciled with friend 68-year-old white female history of bipolar disorder who was brought in by her friend Sara for concerns of manic behavior and suicidal ideation in the context of debt stressors (brother and boyfriend passing away from cancer) and recent initiation of SSRI antidepressant (escitalopram). Admitted to medicine and psychiatry following as PSOC. Presentation consistent with bipolar disorder mixed manic episode. She presented in a euphoric state, high energy, poor sleep, racing thoughts, recent suicidal ideation, tangential and hyperverbal speech. Collateral reveals recent threatening behaviors, impulsive spending, mood lability, limited sleep. Patient has a history of major depressive episodes, past bipolar diagnosis, medication trials. Current episode may have been precipitated by stressors or initiation of SSRI antidepressant. Patient presents poor insight into condition, poor memory recollection of recent events. A: Sleep improving a little bit with increased lorazepam, ongoing galen. QTc on repeat EKG stable. Patient is open to Abilify long acting prior to discharge and may benefit given limited insight into bipolar condition and questions about f uture medication adherence. Overall, I spent a total of 60 minutes with this case including review of chart records, review of labwork, review of EKG QTc, direct evaluation of the patient at bedside, counseling the patient, discussion of the patient with the hospitalist provider, discussion with the psychiatric liason during clinical rounds, and documentation in the electronic health record. (1) Bipolar 1 disorder with moderate galen: (2) Impaired insight: (3) Rhinovirus infection: (4) Hypertension, essential: (5) Migraine: (6) Paresthesia of both lower extremities: Plan 06/12/2024: Continue current medications and tx plan. 06/11/24: -Increase Lorazepam to 2mg HS -Repeat EKG 06/10/24: -Decrease Lorazepam to 1mg HS -Start Hydroxyzine 50mg HS -Patient may have regular food tray (low risk for SI) 06/09/24: -Increase Aripiprazole to 15mg HS -Guaifenesin 600mg Q12hr PRN for congestion -Benzocaine throat lozenge PRN for cough -Labs: Fasting lipid profile, HgbA1C, Vit D, Vit B12 06/08/24: -Hold home Escitalopram -Start Lorazepam 2mg HS -Start Aripiprazole 10mg HS -Hydroxyzine 50mg Q6hr PRN for anxiety/insomnia -Olanzapine ODT 5mg Q8hr for agitation -No indication for bedside sitter Risk Factors Assessment Do You Have Access To A Gun?: No Protective Factors Assessment Employed: No Interval History Identifying Information Lucrecia Villela (Betsy) is a domiciled with friend 68-year-old white female history of bipolar disorder who was brought in by her friend Sara for concerns of manic behavior and suicidal ideation in the context of debt stressors (kat ospina and boyfriend passing away from cancer) and recent initiation of SSRI antidepressant (escitalopram). Admitted to medicine and psychiatry following as [facility]. Chief Complaint "I should try to have this published, what do you think?". Subjective Subjective Patient was seen & assessed and interval progress reviewed. Slept about 6 hours overnight. No prns required. Today reports feeling glad her sleep is improving, no medication side effects. Still feels far from her baseline, isn't sure she agrees with diagnosis of bipolar due to negative stigma she feels this diagnosis carries but agrees that she is more "peculiar" and continues to process recent grief. 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 Physical Exam Mental Examination Appearance: Disheveled Eye Contact: Maintains Eye Contact Motor Behavior: Restless Speech: Excessive and Tangential Mood: Euphoric Affect: Euphoric and Happy Thought Process: Circumstantial, Racing and Tangential Thought Content: Intact and Racing Hallucinations: None Insight: Poor Judgement: Poor Vital Signs (Past 24 Hours) Last Vital Signs Temp 36.9 C 06/12/24 08:26 Pulse 90 06/12/24 08:26 Resp 18 06/12/24 08:26 BP 139/88 06/12/24 08:26 Pulse Ox 95 06/12/24 08:26 O2 Del Method Room Air 06/12/24 08:26 Results & Data ([facility]) Current Inpatient Medications Current Inpatient Medications: Current Inpatient Medications Acetaminophen (Acetaminophen 325 Mg Tab) 650 mg PO QID PRN PRN Reason: pain/fever Stop: 07/08/24 06:57 Last Admin: 06/11/24 09:10 Dose: 650 mg Aripiprazole (Aripiprazole 15 Mg Tab) 15 mg PO HS [place] Stop: 07/09/24 20:59 Last Admin: 06/11/24 21:10 Dose: 15 mg Guaifenesin (Guaifenesin 600 Mg Tabcr) 600 mg PO Q12 [place] Stop: 07/09/24 20:59 Last Admin: 06/12/24 07:33 Dose: 600 mg Hydroxyzine HCl (Hydroxyzine Hcl 25 Mg Tab) 50 mg PO Q6 PRN PRN Reason: anxiety/insomnia Stop: 07/08/24 12:01 Hydroxyzine HCl (Hydroxyzine Hcl 25 Mg Tab) 50 mg PO HS [place] Stop: 07/10/24 20:59 Last Admin: 06/11/24 21:14 Dose: 50 mg Promethazine HCl (Phenergan) 6.25 mg in 50.25 mls @ 201 mls/hr IV Q6H PRN PRN Reason: Nausea And Vomiting Stop: 07/08/24 06:57 Lisinopril (Lisinopril 10 Mg Tab) 10 mg PO DAILY [place] Stop: 07/09/24 08:59 Last Admin: 06/12/24 07:33 Dose: 10 mg Lorazepam (Lorazepam 1 Mg Tab) 2 mg PO HS [place] Stop: 07/11/24 20:59 Last Admin: 06/11/24 21:14 Dose: 2 mg Olanzapine (Olanzapine Zydis 5 Mg Orally Dis. Tab) 5 mg PO Q8 PRN PRN Reason: Agitation Stop: 07/08/24 13:59 Mental Health & Subst Abuse Tx Psychiatrist Name of Psychiatrist: [address], [place], [place] Psychiatrist's Date Of Appointment With Psychiatric Provider: Walk ins only on Mondays- from 8:30am-4pm (psychiatry and therapy) Time of Appointment with Psychiatrist: If patient chooses to walk in, patient can be seen for an intake same day Psychiatric Appointment Comment: Bring your photo ID and insurance card Therapist Name of Therapist: CLARA [place] Attendant Name of [place] Attendant: Lucina Case Management - [address] [place], [place] [address] Phone Number for [place] Attendant: [phone] Case Management Appointment Comment: Referral submitted, outpatient case manager will contact you for scheduling Post Discharge Appointments Primary Care Physician Name Of Family Doctor/PCP: Dr. Ramesh Fernández - post hospitalization PCP appt Primary Care Date of Future Appointment with PCP: 06/18/24 Time of Appointment with PCP: 9:30AM Provider Appointment Comment: In person - [id number] [facility] [id number]
[2024-06-13] MEDS: hydrOXYzine HCl 25 MG TAB PO PRN (06:02)
--- NOTE | 2024-06-13 10:27 | Hospitalist Progress Note ---
Date of Service June 13, 2024 Assessment & Plan (1) Mood disorder: Plan: Continue current care with psychiatric team on board with Zenaida Ruiz and Ativan as needed. (2) Hypertension, essential: Plan: Blood pressure is stable, continue with lisinopril 10 mg daily. Plan Potentially patient need to stay per infection control until 06/22/2024 prior to be transferred to [facility]. Admission and Anticipated Discharge Date Admission Date: June 08, 2024 Subjective Patient was seen briefly reviewed, nothing otherwise, awaiting to be cleared by infection control for transfer to [facility], possibly on 06/22/2024. Physical Exam Physical Exam: VITALS: Reviewed. WEIGHT/BMI reviewed. GEN: Healthy appearing, well-developed, NAD. CV: RRR, no m/r/g. LUNGS: CTAB, no w/r/c. Results & Data Results & Data Vital Signs (Past 12 Hours) Vital Signs Temp Pulse Resp BP Pulse Ox O2 Del Method 06/13/24 07:00 36.8 C 90 18 128/82 94 Room Air 06/12/24 23:49 36.6 C 106 H 18 128/87 98 Room Air Medications Administered Current Inpatient Medications Acetaminophen (Acetaminophen 325 Mg Tab) 650 mg PO QID PRN PRN Reason: pain/fever Stop: 07/08/24 06:57 Last Admin: 06/13/24 03:15 Dose: 650 mg Aripiprazole (Aripiprazole 15 Mg Tab) 15 mg PO HS [place] Stop: 07/09/24 20:59 Last Admin: 06/12/24 22:19 Dose: 15 mg Guaifenesin (Guaifenesin 600 Mg Tabcr) 600 mg PO Q12 [place] Stop: 07/09/24 20:59 Last Admin: 06/13/24 09:13 Dose: 600 mg Hydroxyzine HCl (Hydroxyzine Hcl 25 Mg Tab) 50 mg PO Q6 PRN PRN Reason: anxiety/insomnia Stop: 07/08/24 12:01 Last Admin: 06/13/24 06:02 Dose: 50 mg Hydroxyzine HCl (Hydroxyzine Hcl 25 Mg Tab) 50 mg PO HS [place] Stop: 07/10/24 20:59 Last Admin: 06/12/24 22:18 Dose: 50 mg Promethazine HCl (Phenergan) 6.25 mg in 50.25 mls @ 201 mls/hr IV Q6H PRN PRN Reason: Nausea And Vomiting Stop: 07/08/24 06:57 Lisinopril (Lisinopril 10 Mg Tab) 10 mg PO DAILY [place] Stop: 07/09/24 08:59 Last Admin: 06/13/24 09:13 Dose: 10 mg Lorazepam (Lorazepam 1 Mg Tab) 2 mg PO HS [place] Stop: 07/11/24 20:59 Last Admin: 06/12/24 22:18 Dose: 2 mg Olanzapine (Olanzapine Zydis 5 Mg Orally Dis. Tab) 5 mg PO Q8 PRN PRN Reason: Agitation Stop: 07/08/24 13:59
--- NOTE | 2024-06-13 11:49 | Psychiatric Progress Note ---
Date of Service June 13, 2024 Impression / Recommendations Impression Lucrecia Villela is a domiciled with friend 68-year-old white female history of bipolar disorder who was brought in by her friend Sara for concerns of manic behavior and suicidal ideation in the context of debt stressors (brother and boyfriend passing away from cancer) and recent initiation of SSRI antidepressant (escitalopram). Admitted to medicine and psychiatry following as PSOC. Presentation consistent with bipolar disorder mixed manic episode. She presented in a euphoric state, high energy, poor sleep, racing thoughts, recent suicidal ideation, tangential and hyperverbal speech. Collateral reveals recent threatening behaviors, impulsive spending, mood lability, limited sleep. Patient has a history of major depressive episodes, past bipolar diagnosis, medication trials. Current episode may have been precipitated by stressors or initiation of SSRI antidepressant. Patient presents poor insight into condition, poor memory recollection of recent events. A: Poor sleep overnight and ongoing galen with hyperverbal speech, elevated mood, risk taking behaviors (trusting strangers with phone plan, wanting to spend money she doesn't have), psychomotor agitation, grandiosity, and poor insight/judgment. She denies any side effects from Abilify and is agreeable with dose titration. Will switch lorazepam to Klonopin in effort to improve sleep duration. Overall, I spent a total of 60 minutes with this case including review of chart records, review of labwork, direct evaluation of the patient at bedside, counseling the patient, discussion of the patient with the hospitalist provider, discussion with the psychiatric liason during clinical rounds, and documentation in the electronic health record. (1) Bipolar 1 disorder with moderate galen: (2) Impaired insight: (3) Rhinovirus infection: (4) Hypertension, essential: (5) Migraine: (6) Paresthesia of both lower extremities: Plan 06/13/2024: -Increase abilify to 20mg HS -Switch to Klonopin 1mg HS with additional 1mg BID prn for agitation/restlessness 06/12/2024: Continue current medications and tx plan. 06/11/24: -Increase Lorazepam to 2mg HS -Repeat EKG 06/10/24: -Decrease Lorazepam to 1mg HS -Start Hydroxyzine 50mg HS -Patient may have regular food tray (low risk for SI) 06/09/24: -Increase Aripiprazole to 15mg HS -Guaifenesin 600mg Q12hr PRN for congestion -Benzocaine throat lozenge PRN for cough -Labs: Fasting lipid profile, HgbA1C, Vit D, Vit B12 06/08/24: -Hold home Escitalopram -Start Lorazepam 2mg HS -Start Aripiprazole 10mg HS -Hydroxyzine 50mg Q6hr PRN for anxiety/insomnia -Olanzapine ODT 5mg Q8hr for agitation -No indication for bedside sitter Risk Factors Assessment Do You Have Access To A Gun?: No Protective Factors Assessment Employed: No Interval History Identifying Information Lucreciajuan Villela (Betsy) is a domiciled with friend 68-year-old white female history of bipolar disorder who was brought in by her friend Sara for concerns of manic behavior and suicidal ideation in the context of debt stressors (brother and boyfriend passing away from cancer) and recent initiation of SSRI antidepressant (escitalopram). Admitted to medicine and psychiatry following as PSOC. Chief Complaint "You're right I barely know him". Subjective Subjective Patient was seen & assessed and interval progress reviewed. Overnight events notable for Daja befriending a patient on the medical floor and adding herself to his phone plan, following this nursing supervisor agency appointments and others involved. Later around 3am she was awake and asked RN for her credit card so she could purchase >$4,000 in silver from an [employer]. Given concern for role galen was playing in financial risk taking her wallet and phone were removed and secured so that she no longer has access to these while her galen is treated. Slept intermittently overnight-awake at 3am and again at 6am, estimate only about 5 hours of sleep. Today wearing pink scrunchie around the nose of her mask. Her room was moved away from fellow patient and she wonders if this was a "conspiracy". Reflected on concerns about her financial decisions and she agrees that "you're right, I barely know him". She is willing to call her phone provider to ask about risks of her being on his plan i.e. could she become responsible for paying for his phone if he stopped making payments. She reflects that she has always bought silver and this is not a change due to galen but understands why this is not a good idea while her mood symptoms are being treated. She remains with elevated mood and is looking forward to visitors. Reflects that she'll spend the day reaching out to [place] and then "running errands" like cleaning up around the ice machine. Reviewed importance of wearing her mask appropriately if she desires to leave her room due to droplet precautions and she is agreeable to wearing her mask fully over her noise and mouth, handwashing, and agrees to remove her scrunchie. Physical Exam Mental Examination Appearance: Disheveled Eye Contact: Maintains Eye Contact Motor Behavior: Restless Speech: Excessive and Tangential Mood: Euphoric Affect: Euphoric and Happy Thought Process: Circumstantial, Racing and Tangential Thought Content: Racing and Preoccupation (grandiose ) Hallucinations: None Insight: Poor Judgement: Poor Vital Signs (Past 24 Hours) Last Vital Signs Temp 36.8 C 06/13/24 07:00 Pulse 90 06/13/24 07:00 Resp 18 06/13/24 07:00 BP 128/82 06/13/24 07:00 Pulse Ox 94 06/13/24 07:00 O2 Del Method Room Air 06/13/24 07:45 Results & Data ([facility]) Current Inpatient Medications Current Inpatient Medications: Current Inpatient Medications Acetaminophen (Acetaminophen 325 Mg Tab) 650 mg PO QID PRN PRN Reason: pain/fever Stop: 07/08/24 06:57 Last Admin: 06/13/24 03:15 Dose: 650 mg Aripiprazole (Aripiprazole 15 Mg Tab) 15 mg PO HS [facility] Stop: 07/09/24 20:59 Last Admin: 06/12/24 22:19 Dose: 15 mg Guaifenesin (Guaifenesin 600 Mg Tabcr) 600 mg PO Q12 [place] Stop: 07/09/24 20:59 Last Admin: 06/13/24 09:13 Dose: 600 mg Hydroxyzine HCl (Hydroxyzine Hcl 25 Mg Tab) 50 mg PO Q6 PRN PRN Reason: anxiety/insomnia Stop: 07/08/24 12:01 Last Admin: 06/13/24 06:02 Dose: 50 mg Hydroxyzine HCl (Hydroxyzine Hcl 25 Mg Tab) 50 mg PO HS [facility] Stop: 07/10/24 20:59 Last Admin: 06/12/24 22:18 Dose: 50 mg Promethazine HCl (Phenergan) 6.25 mg in 50.25 mls @ 201 mls/hr IV Q6H PRN PRN Reason: Nausea And Vomiting Stop: 07/08/24 06:57 Lisinopril (Lisinopril 10 Mg Tab) 10 mg PO DAILY [place] Stop: 07/09/24 08:59 Last Admin: 06/13/24 09:13 Dose: 10 mg Lorazepam (Lorazepam 1 Mg Tab) 2 mg PO HS [place] Stop: 07/11/24 20:59 Last Admin: 06/12/24 22:18 Dose: 2 mg Olanzapine (Olanzapine Zydis 5 Mg Orally Dis. Tab) 5 mg PO Q8 PRN PRN Reason: Agitation Stop: 07/08/24 13:59 Mental Health & Subst Abuse Tx Psychiatrist Name of Psychiatrist: [address], [place], [place] Psychiatrist's Date Of Appointment With Psychiatric Provider: Walk ins only on Mondays- from 8:30am-4pm (psychiatry and therapy) Time of Appointment with Psychiatrist: If patient chooses to walk in, patient can be seen for an intake same day Psychiatric Appointment Comment: Bring your photo ID and insurance card Therapist Name of Therapist: CLARA Spiral Winding Machine Helper Name of Spiral Winding Machine Helper: Lucina Case Management - [address] [place] [address] Phone Number for Spiral Winding Machine Helper: [phone] Case Management Appointment Comment: Referral submitted, case resource manager will c ontact you for scheduling Post Discharge Appointments Primary Care Physician Name Of Family Doctor/PCP: Dr. Ramesh Fernández - post hospitalization PCP appt Primary Care Date of Future Appointment with PCP: 06/18/24 Time of Appointment with PCP: 9:30AM Provider Appointment Comment: In person - [id number] [facility] [id number]
[2024-06-13] MEDS ORDERED: clonazePAM 1 MG TAB PO PRN (11:50)
[2024-06-13] MEDS: clonazePAM 1 MG TAB PO SCH (20:34)
[2024-06-13] MEDS: ARIPiprazole 10 MG TAB PO SCH (20:37)
[2024-06-14] MEDS: guaiFENesin SUGAR FREE 200 MG/10 ML UDC PO PRN (03:09)
--- NOTE | 2024-06-14 15:00 | Hospitalist Progress Note ---
Date of Service June 14, 2024 Assessment & Plan (1) Mood disorder: Plan: Continue current care with psychiatric team on board with Zenaida Ruiz and Ativan as needed. Patient remains Manic Ongoing support from legal and security given patient's impulsivity and high risk for financial consequences (2) Hypertension, essential: Plan: Blood pressure is stable, continue with lisinopril 10 mg daily. Plan Potentially patient need to stay per infection control until 06/22/2024 prior to be transferred to [facility]. Admission and Anticipated Discharge Date Admission Date: June 08, 2024 Subjective Patient exquisitely talkative dismissive of provider denies any symptoms Physical Exam Constitutional: WD/WN, vitals as above Respiratory: normal respiratory effort, lungs clear to auscultation Cardiovascular: RRR, no murmur, no edema Psychiatric: Apperance: + disheveled Speech: + pressured speech Results & Data Results & Data Vital Signs (Past 12 Hours) Vital Signs Temp Pulse Resp BP Pulse Ox O2 Del Method 06/14/24 09:30 Room Air 06/14/24 09:19 36.9 C 91 H 16 124/76 95 Room Air Medications Administered Home Medications Medication Instructions Recorded Confirmed Last Taken escitalopram oxalate 5 mg tablet 5 mg PO DAILY 06/08/24 06/08/24 06/07/24 (Lexapro) lisinopril 10 mg tablet 10 mg PO DAILY 06/08/24 06/08/24 06/07/24 Active Medications Generic Name Dose Route Start Last Admin Trade Name Freq PRN Reason Stop Dose Admin Acetaminophen 650 mg 06/08/24 06:58 06/13/24 03:15 Acetaminophen 325 Mg Tab PO 07/08/24 06:57 650 mg QID PRN Administration pain/fever Aripiprazole 20 mg 06/13/24 21:00 06/13/24 20:37 Aripiprazole 10 Mg Tab PO 07/13/24 20:59 20 mg HS [place] Administration Clonazepam 1 mg 06/13/24 21:00 06/13/24 20:34 Clonazepam 1 Mg Tab PO 07/13/24 20:59 1 mg HS [place] Administration Guaifenesin 600 mg 06/09/24 21:00 06/14/24 09:25 Guaifenesin 600 Mg Tabcr PO 07/09/24 20:59 600 mg Q12 [place] Administration Guaifenesin 200 mg 06/14/24 02:55 06/14/24 11:46 Guaifenesin Sugar Free 200 Mg/10 Ml Udc PO 07/14/24 02:54 200 mg Q6H PRN Administration Cough Hydroxyzine HCl 50 mg 06/08/24 12:02 06/13/24 06:02 Hydroxyzine Hcl 25 Mg Tab PO 07/08/24 12:01 50 mg Q6 PRN Administration anxiety/insomnia Hydroxyzine HCl 50 mg 06/10/24 21:00 06/13/24 20:36 Hydroxyzine Hcl 25 Mg Tab PO 07/10/24 20:59 50 mg HS [place] Administration Lisinopril 10 mg 06/09/24 09:00 06/14/24 09:24 Lisinopril 10 Mg Tab PO 07/09/24 08:59 10 mg DAILY [place] Administration
[2024-06-14 15:26] VITALS: RESP 18
--- NOTE | 2024-06-14 16:07 | Communication Note ---
Date of Service: June 14, 2024 This communication is in regards to ongoing incident with Ms. Villela and prior patient (Mr. Mi) within the facility. Patient is in manic episode and high risk for exploitation and profoundly negative financial consequences given impulsivity Patient does not have capacity at this time *MR. Mi* is seeking secondary gain from patient. Reports of disclosure of patient's financial information and addition to phone plan reported There is no prior history of relationship before admission. This individual cannot visit Ms. Villela in her current state. Please contact security and/or behavioral liaison for any questions or concerns regarding this matter.
--- NOTE | 2024-06-14 17:25 | Psychiatric Progress Note ---
Date of Service June 14, 2024 Impression / Recommendations Impression Lucrecia Villela is a domiciled with friend 68-year-old white female history of bipolar disorder who was brought in by her friend Sara for concerns of manic behavior and suicidal ideation in the context of debt stressors (brother and boyfriend passing away from cancer) and recent initiation of SSRI antidepressant (escitalopram). Admitted to medicine and psychiatry following as PSOC. Presentation consistent with bipolar disorder mixed manic episode. She presented in a euphoric state, high energy, poor sleep, racing thoughts, recent suicidal ideation, tangential and hyperverbal speech. Collateral reveals recent threatening behaviors, impulsive spending, mood lability, limited sleep. Patient has a history of major depressive episodes, past bipolar diagnosis, medication trials. Current episode may have been precipitated by stressors or initiation of SSRI antidepressant. Patient presents poor insight into condition, poor memory recollection of recent events. A: Ongoing euphoric galen with risk taking behaviors of reckless spending, poor insight and judgment. Due to well known risks for excessive spending during acute episode of galen and her ongoing poor insight and judgment it is my clinical recommendation that her wallet remained secured due to need to protect her financial security and interests including eventual need to work on securing buttermaker helper housing. She is in agreement with security continuing to keep her wallet until discharge. She would like her phone back and this should be provided unless new behaviors occur to suggest acute risks to her health, safety or welfare from her phone usage in which case her cell phone access could be re- evaluated. Continue current medications. Overall, I spent a total of 45 minutes with this case including review of chart records, review of labwork, direct evaluation of the patient at bedside, counseling the patient, discussion of the patient with the hospitalist provider, discussion with the psychiatric liason during clinical rounds, and documentation in the electronic health record. (1) Bipolar 1 disorder with moderate galen: (2) Impaired insight: (3) Rhinovirus infection: (4) Hypertension, essential: (5) Migraine: (6) Paresthesia of both lower extremities: Plan 06/14/2024: -Continue current medications -Consideration to give Abilify HUITRON initial dose tomorrow knowing she will require oral overlap 06/13/2024: -Increase abilify to 20mg HS -Switch to Klonopin 1mg HS with additional 1mg BID prn for agitation/restlessness 06/12/2024: Continue current medications and tx plan. 06/11/24: -Increase Lorazepam to 2mg HS -Repeat EKG 06/10/24: -Decrease Lorazepam to 1mg HS -Start Hydroxyzine 50mg HS -Patient may have regular food tray (low risk for SI) 06/09/24: -Increase Aripiprazole to 15mg HS -Guaifenesin 600mg Q12hr PRN for congestion -Benzocaine throat lozenge PRN for cough -Labs: Fasting lipid profile, HgbA1C, Vit D, Vit B12 06/08/24: -Hold home Escitalopram -Start Lorazepam 2mg HS -Start Aripiprazole 10mg HS -Hydroxyzine 50mg Q6hr PRN for anxiety/insomnia -Olanzapine ODT 5mg Q8hr for agitation -No indication for bedside sitter Risk Factors Assessment Do You Have Access To A Gun?: No Protective Factors Assessment Employed: No Interval History Identifying Information Lucrecia "Rajwinder Villela is a domiciled with friend 68-year-old white female history of bipolar disorder who was brought in by her friend Sara for concerns of manic behavior and suicidal ideation in the context of debt stressors (brother and boyfriend passing away from cancer) and recent initiation of SSRI antidepressant (escitalopram). Admitted to medicine and psychiatry following as [facility]. Chief Complaint "I slept all night". Subjective Subjective Patient was seen & assessed and interval progress reviewed. No overnight events. Today reports ongoing elevated mood, expresses ongoing appreciation for care she is receiving "I love it here". No side effects from medication changes. Reports sleeping well. Has painted her face with halloween makeup including bright pink and white strips on her eyelids and a cactus picture on her check. Asks to have her phone back. Reviewed concerns about her wallet, she is agreeable to having security hold onto this until she discharges. Reviewed concerns for her spending money recklessly due to galen. She has poor insight into this but agrees she has been shopping more noting that she convinced a online community manager at a local store to set items aside for her to purchase after discharge since "I didn't think sending money in an envelope through the mail would be very safe". Wonders if she should write a letter of support for another patient regarding his possible upcoming parole. Strongly advised her against doing this, she states appreciation for this perspective but that she also feels she is a good safety net maker of character and so will continue to contemplate it. Physical Exam Mental Examination Appearance: Disheveled Eye Contact: Maintains Eye Contact Motor Behavior: Restless Speech: Excessive and Tangential Mood: Euphoric Affect: Euphoric and Happy Thought Process: Circumstantial, Racing and Tangential Thought Content: Racing and Preoccupation (grandiose ) Hallucinations: None Insight: Poor Judgement: Poor Vital Signs (Past 24 Hours) Last Vital Signs Temp 36.7 C 06/14/24 15:25 Pulse 89 06/14/24 15:25 Resp 18 06/14/24 15:25 BP 118/76 06/14/24 15:25 Pulse Ox 97 06/14/24 15:25 O2 Del Method Room Air 06/14/24 15:25 Results & Data ([facility]) Current Inpatient Medications Current Inpatient Medications: Current Inpatient Medications Acetaminophen (Acetaminophen 325 Mg Tab) 650 mg PO QID PRN PRN Reason: pain/fever Stop: 07/08/24 06:57 Last Admin: 06/13/24 03:15 Dose: 650 mg Aripiprazole (Aripiprazole 10 Mg Tab) 20 mg PO HS [place] Stop: 07/13/24 20:59 Last Admin: 06/13/24 20:37 Dose: 20 mg Clonazepam (Clonazepam 1 Mg Tab) 1 mg PO HS [place] Stop: 07/13/24 20:59 Last Admin: 06/13/24 20:34 Dose: 1 mg Clonazepam (Clonazepam 1 Mg Tab) 1 mg PO BID PRN PRN Reason: restlessness/agitation Stop: 07/13/24 11:49 Guaifenesin (Guaifenesin 600 Mg Tabcr) 600 mg PO Q12 [place] Stop: 07/09/24 20:59 Last Admin: 06/14/24 09:25 Dose: 600 mg Guaifenesin (Guaifenesin Sugar Free 200 Mg/10 Ml Udc) 200 mg PO Q6H PRN PRN Reason: Cough Stop: 07/14/24 02:54 Last Admin: 06/14/24 11:46 Dose: 200 mg Hydroxyzine HCl (Hydroxyzine Hcl 25 Mg Tab) 50 mg PO Q6 PRN PRN Reason: anxiety/insomnia Stop: 07/08/24 12:01 Last Admin: 06/13/24 06:02 Dose: 50 mg Hydroxyzine HCl (Hydroxyzine Hcl 25 Mg Tab) 50 mg PO HS [place] Stop: 07/10/24 20:59 Last Admin: 06/13/24 20:36 Dose: 50 mg Promethazine HCl (Phenergan) 6.25 mg in 50.25 mls @ 201 mls/hr IV Q6H PRN PRN Reason: Nausea And Vomiting Stop: 07/08/24 06:57 Lisinopril (Lisinopril 10 Mg Tab) 10 mg PO DAILY [place] Stop: 07/09/24 08:59 Last Admin: 06/14/24 09:24 Dose: 10 mg Olanzapine (Olanzapine Zydis 5 Mg Orally Dis. Tab) 5 mg PO Q8 PRN PRN Reason: Agitation Stop: 07/08/24 13:59 Mental Health & Subst Abuse Tx Psychiatrist Name of Psychiatrist: [address], [place] Psychiatrist's Date Of Appointment With Psychiatric Provider: Walk ins only on Mondays- from 8:30am-4pm (psychiatry and therapy) Time of Appointment with Psychiatrist: If patient chooses to walk in, patient can be seen for an intake same day Psychiatric Appointment Comment: Bring your photo ID and insurance card Therapist Name of Therapist: CLARA Glass Designer Name of Glass Designer: Lucina Case Management - [address] [place] [address] Phone Number for Glass Designer: [phone] Date of Appointment with Glass Designer: 06/25/24 Time of Appointment with Glass Designer: 10AM Case Management Appointment Comment: manager oracle Lilian Palomino will meet you in your home for the intake Post Discharge Appointments Primary Care Physician Name Of Family Doctor/PCP: Dr. Ramesh Fernández - post hospitalization PCP appt Primary Care Date of Future Appointment with PCP: 06/18/24 Time of Appointment with PCP: 9:30AM Provider Appointment Comment: In person - [id number] [facility] [id number]
[2024-06-14] MEDS: LORATADINE 10 MG TAB PO ONE (18:57)
[2024-06-15 08:14] VITALS: BP 131/80; PULSE 88; TEMP 97.9; O2SAT 96
--- NOTE | 2024-06-15 12:05 | Psychiatric Progress Note ---
Date of Service June 15, 2024 Impression / Recommendations Impression Lucrecia Villela is a domiciled with friend 68-year-old white female history of bipolar disorder who was brought in by her friend Sara for concerns of manic behavior and suicidal ideation in the context of debt stressors (brother and boyfriend passing away from cancer) and recent initiation of SSRI antidepressant (escitalopram). Admitted to medicine and psychiatry following as PSOC. Presentation consistent with bipolar disorder mixed manic episode. She presented in a euphoric state, high energy, poor sleep, racing thoughts, recent suicidal ideation, tangential and hyperverbal speech. Collateral reveals recent threatening behaviors, impulsive spending, mood lability, limited sleep. Patient has a history of major depressive episodes, past bipolar diagnosis, medication trials. Current episode may have been precipitated by stressors or initiation of SSRI antidepressant. Patient presents poor insight into condition, poor memory recollection of recent events. A: Ongoing euphoric galen with risk taking behaviors of reckless spending, poor insight and judgment. Cleared by infection control for inpatient psychiatry admission, no evidence for ongoing cold symptoms. Tolerating medications without side effects. Plan for inpatient admission Overall, I spent a total of 40 minutes with this case including review of chart records, review of labwork, direct evaluation of the patient at bedside, cou nseling the patient, discussion of the patient with the hospitalist provider, discussion with the psychiatric liason during clinical rounds, and documentation in the electronic health record. (1) Bipolar 1 disorder with moderate galen: (2) Impaired insight: (3) Rhinovirus infection: (4) Hypertension, essential: (5) Migraine: (6) Paresthesia of both lower extremities: Plan 06/15/2024: -Signed 201, plan for inpatient psychiatry admission -Continue current medications and tx plan 06/14/2024: -Continue current medications -Consideration to give Abilify HUITRON initial dose tomorrow knowing she will require oral overlap 06/13/2024: -Increase abilify to 20mg HS -Switch to Klonopin 1mg HS with additional 1mg BID prn for agitation/restl essness 06/12/2024: Continue current medications and tx plan. 06/11/24: -Increase Lorazepam to 2mg HS -Repeat EKG 06/10/24: -Decrease Lorazepam to 1mg HS -Start Hydroxyzine 50mg HS -Patient may have regular food tray (low risk for SI) 06/09/24: -Increase Aripiprazole to 15mg HS -Guaifenesin 600mg Q12hr PRN for congestion -Benzocaine throat lozenge PRN for cough -Labs: Fasting lipid profile, HgbA1C, Vit D, Vit B12 06/08/24: -Hold home Escitalopram -Start Lorazepam 2mg HS -Start Aripiprazole 10mg HS -Hydroxyzine 50mg Q6hr PRN for anxiety/insomnia -Olanzapine ODT 5mg Q8hr for agitation -No indication for bedside sitter Risk Factors Assessment Do You Have Access To A Gun?: No Protective Factors Assessment Employed: No Interval History Identifying Information Lucrecia Villela (Betsy) is a domiciled with friend 68-year-old white female history of bipolar disorder who was brought in by her friend Sara for concerns of manic behavior and suicidal ideation in the context of debt stressors (brother and boyfriend passing away from cancer) and recent initiation of SSRI antidepressant (escitalopram). Admitted to medicine and psychiatry following as PSOC. Chief Complaint "I love it here". Subjective Subjective Patient was seen & assessed and interval progress reviewed. Cleared by infection control for U admission. She is agreeable and signed 201. Continues to express gratitude for care she is receiving. Remains focused on items she wants to buy and new friendship with another patient. Discusses coloring pictures for various staff. Physical Exam Mental Examination Appearance: Disheveled Eye Contact: Maintains Eye Contact Motor Behavior: Restless Speech: Excessive and Tangential Mood: Euphoric Affect: Euphoric and Happy Thought Process: Circumstantial, Racing and Tangential Thought Content: Racing and Preoccupation (grandiose ) Hallucinations: None Insight: Poor Judgement: Poor Vital Signs (Past 24 Hours) Last Vital Signs Temp 36.6 C 06/15/24 08:10 Pulse 88 06/15/24 08:10 Resp 18 06/15/24 08:10 BP 131/80 06/15/24 08:10 Pulse Ox 96 06/15/24 08:10 O2 Del Method Room Air 06/15/24 08:10 Results & Data ([facility]) Current Inpatient Medications Current Inpatient Medications: Current Inpatient Medications Acetaminophen (Acetaminophen 325 Mg Tab) 650 mg PO QID PRN PRN Reason: pain/fever Stop: 07/08/24 06:57 Last Admin: 06/13/24 03:15 Dose: 650 mg Aripiprazole (Aripiprazole 10 Mg Tab) 20 mg PO HS [place] Stop: 07/13/24 20:59 Last Admin: 06/14/24 20:24 Dose: 20 mg Clonazepam (Clonazepam 1 Mg Tab) 1 mg PO HS [place] Stop: 07/13/24 20:59 Last Admin: 06/14/24 20:25 Dose: 1 mg Clonazepam (Clonazepam 1 Mg Tab) 1 mg PO BID PRN PRN Reason: restlessness/agitation Stop: 07/13/24 11:49 Guaifenesin (Guaifenesin 600 Mg Tabcr) 600 mg PO Q12 [place] Stop: 07/09/24 20:59 Last Admin: 06/15/24 08:15 Dose: 600 mg Guaifenesin (Guaifenesin Sugar Free 200 Mg/10 Ml Udc) 200 mg PO Q6H PRN PRN Reason: Cough Stop: 07/14/24 02:54 Last Admin: 06/14/24 20:23 Dose: 200 mg Hydroxyzine HCl (Hydroxyzine Hcl 25 Mg Tab) 50 mg PO Q6 PRN PRN Reason: anxiety/insomnia Stop: 07/08/24 12:01 Last Admin: 06/13/24 06:02 Dose: 50 mg Hydroxyzine HCl (Hydroxyzine Hcl 25 Mg Tab) 50 mg PO HS [place] Stop: 07/10/24 20:59 Last Admin: 06/14/24 20:25 Dose: 50 mg Promethazine HCl (Phenergan) 6.25 mg in 50.25 mls @ 201 mls/hr IV Q6H PRN PRN Reason: Nausea And Vomiting Stop: 07/08/24 06:57 Lisinopril (Lisinopril 10 Mg Tab) 10 mg PO DAILY [place] Stop: 07/09/24 08:59 Last Admin: 06/15/24 08:15 Dose: 10 mg Olanzapine (Olanzapine Zydis 5 Mg Orally Dis. Tab) 5 mg PO Q8 PRN PRN Reason: Agitation Stop: 07/08/24 13:59 Mental Health & Subst Abuse Tx Psychiatrist Name of Psychiatrist: [address], [place]IS [place]dugo Psychiatrist's Date Of Appointment With Psychiatric Provider: Walk ins only on Mondays- from 8:30am-4pm (psychiatry and therapy) Time of Appointment with Psychiatrist: If patient chooses to walk in, patient can be seen for an intake same day Psychiatric Appointment Comment: Bring your photo ID and insurance card Therapist Name of Therapist: CLARA Physiognomist Name of Physiognomist: Lucina [facility] - [address] [place] [address] [place] Phone Number for Physiognomist: [phone] Date of Appointment with Physiognomist: 06/25/24 Time of Appointment with Physiognomist: 10AM Case Management Appointment Comment: product management manager Lilian Palomino will meet you in your home for the intake Post Discharge Appointments Primary Care Physician Name Of Family Doctor/PCP: Dr. Ramesh Fernández [facility] Date of Future Appointment with PCP: 06/18/24 Time of Appointment with PCP: 9:30AM Provider Appointment Comment: [phone] [facility] [id number]
--- NOTE | 2024-06-15 13:22 | Discharge Summary ---
Discharge Summary Date of Service June 15, 2024 Principal Dx & Hospital Course #1 = Principal Diagnosis (1) Mood disorder: (2) Hypertension, essential: Plan Ms. Villela is a 68 year old woman who was admitted due to suicidal thoughts. Patient admitted to medical service due to rhinovirus. Potentially patient need to stay per infection control until 06/22/2024 prior to be transferred to [facility].; however, symptoms noted to be around Thanksgiving therefore 10days quarantine discontinued. Patient remained in manic state, ultimately deemed a high risk for exploitation and profoundly negative financial consequences given impulsivity Patient discharged to [facility] Notes For Next Care Provider Medication Changes From Visit lorazepam discontinue klonipin qhs, with BID prn abilify started 20mg Admission HPI Per Admitting Provider History obtained from patient, ED staff, and records. Medical history significant for hypertension, COPD, GERD, ADHD, anxiety/mood disorder, melanoma status post surgery, difficult airway as per records, past tobacco abuse. Patient had been staying with a friend who is a resident of [place] the last few months. Patient stressed out/depressed over recent deaths in the family. Patient started by PCP on Celexa a few weeks ago. Patient thinks medication helping. Patient verbally aggressive recently and threatened to kill her friend as per report. Patient not sleeping well for a couple of weeks. Patient admits to fleeting suicidal thoughts. Denies headache, chest pain, SOB. Some nasal congestion with cough productive of clear sputum. Sick contacts from [employer] gathering. U recommended medical admission due to positive rhinovirus swab. Medical History as above Surgical History : Bunion surgery, dental surgery, D&C, shoulder lesion incision, metatarsal osteotomy, cataract surgery, tonsillectomy/adenoidectomy, hammertoe correction, skin cancer surgery Family History : Breast cancer, colon cancer, heart disease, migraine Personal/Social history : Past tobacco abuse, occasional EtOH intake, retired [employer] employee Admission Exam Per Admitting Provider GENERAL: Comfortable, pleasant, flight of ideas expressed during encounter, no respiratory distress SKIN: Normal color, warm HEENT: [place] palpebral conjunctivae, no ptosis, dry buccal mucosa NECK : Supple, no tenderness CHEST : Decreased breath sounds, no tenderness HEART : RRR, no obvious murmurs ABDOMEN: Some distention, nontender EXTREMITIES : No LE swelling/tenderness, no other conspicuous deformities noted NEUROLOGIC : Coherent, no facial asymmetry, no other gross focality Discharge Exam Constitutional WD/WN, vitals as above Respiratory normal respiratory effort, lungs clear to auscultation Cardiovascular RRR, no murmur, no edema Psychiatric Apperance: + disheveled Speech: + pressured speech Updated Medication List Medication Instructions Recorded Confirmed Type escitalopram oxalate 5 mg tablet 5 mg PO DAILY 06/08/24 06/08/24 History (Lexapro) lisinopril 10 mg tablet 10 mg PO DAILY 06/08/24 06/08/24 History acetaminophen 325 mg tablet 650 mg (2 x 325 mg) PO QID PRN #0 06/15/24 Rx tabs aripiprazole 10 mg tablet (Abilify) 20 mg (2 x 10 mg) PO HS #0 tabs 06/15/24 Rx clonazepam 1 mg tablet 1 mg PO BID PRN #0 tabs 06/15/24 Rx clonazepam 1 mg tablet 1 mg PO HS #0 tabs 06/15/24 Rx hydroxyzine HCl 25 mg tablet 50 mg (2 x 25 mg) PO HS #0 tabs 06/15/24 Rx hydroxyzine HCl 25 mg tablet 50 mg (2 x 25 mg) PO Q6 PRN #0 tabs 06/15/24 Rx olanzapine 5 mg disintegrating 5 mg PO Q8 PRN #0 tabs 06/15/24 Rx tablet Hospital Stay Data Consultations 06/08/24 05:56 ED Decision to Admit Stat 06/08/24 09:43 Consult Psychiatry Routine 06/13/24 04:21 Consult Behavioral Health Liaison Routine Pending Results Patient Have Any Pending Studies at Discharge: No Discharge Instructions Given to Patient (Per Discharging Provider) You were admitted for galen. Ongoing euphoric galen with risk taking behaviors of reckless spending, poor insight and judgment. Cleared by infection control for inpatient psychiatry admission, no evidence for ongoing cold symptoms. Tolerating medications without side effects. Plan for inpatient admission Total Time Total Time Spent Total Time Spent (In Minutes): 35
== END 2024-06-15 16:41 | DRG 885 ==
LOC: ED 00:25 → EDINP 06:56 → SUATTDRO 06:56 → 3W 09:33 → 3E 06-13 10:08

== ENCOUNTER 2024-06-15 11:44 | Inpatient (IN) ==
[2024-06-15] MEDS ORDERED: MAGNESIUM HYDROXIDE SUSP 30 ML UDC PO PRN (11:57)
[2024-06-15] MEDS ORDERED: BISMUTH SUBSALICYLATE 262 MG CHEW PO PRN (11:57)
[2024-06-15] MEDS ORDERED: OLANZapine ZYDIS 5 MG ORALLY DIS. TAB PO PRN (19:52)
[2024-06-15] MEDS: ARIPiprazole 10 MG TAB PO SCH (21:47)
[2024-06-15] MEDS: clonazePAM 1 MG TAB PO SCH (21:48)
[2024-06-15] MEDS: hydrOXYzine HCl 25 MG TAB PO PRN (22:54)
--- NOTE | 2024-06-16 08:52 | History & Physical ---
Date of Service June 16, 2024 Impression / Recommendations Impression JUSTIN WU is a 68-year-old woman who has been living with her friend Sara in [place], has a history of bipolar disorder, and was admitted on 06/15/24 16:45 on a 201 voluntary commitment for galen. Diagnostically consistent with acute galen due to bipolar affective disorder. She continues to have classic symptoms of galen including grandiosity, distractibility, increased psychomotor activity/goal driven activity, rapid and extremely hyperverbal speech, tangential thought process with flight of ideas, spending excess money and trying to put purchases she cannot afford on her credit cards (including calling to have her credit limit increased in attempt to buy >4k in silver off an overnight infomercial), befriending and joining the cellphone plan of a new acquaintance she made on the medical floor while at the vending machine, and poor sleep. Discussed medication treatment options in detail. Discussed risks, benefits and alternatives. Patient would like to start and consented to Abilify HUITRON with ongoing initial po overlap for bipolar affective disorder and [place] for BPAD/galen. Reviewed side effects including but not limited to: movement (TD, NMS), cardiac (QTc prolongation), and metabolic (stroke, insulin resistance) and necessity for fasting lipid and glucose labwork (done on 06/09/2024 and 06/10/2024, reviewed and stable for ongoing use) and AIMS done with score of 0. Baseline labs of thyroid function, kidney function, weight, electrolytes, CBC, and UA were preformed and stable for initiation of [place]. She has been on lisinopril for blood pressure so this will need to be stopped before [place] can be started. If blood pressure increases will consider use of an alternative medication such as a beta meghna or calcium channel meghna. Patient educated on risks of dehydration, renal, thyroid, cardiac, drug interactions (NSAIDs, ACEIs, angiotensin receptor antagonists, risks]. [facility]-acute galen and disinhibited and easily influenced by peers, recent inappropriate boundaries with other patients Overall I spent a total of 75 minutes for this admission including review of chart records, review of labwork, direct evaluation of the patient, counseling the patient, ordering medication, risk assessment, discussion with the psychiatric liason RN and documentation in the electronic health record. (1) Bipolar 1 disorder with moderate galen: (2) Insomnia due to mental disorder: Plan 06/16/2024: The patient was admitted to the [facility] ([facility] inpatient mental health unit) on q15 min checks (behavioral with suicide precautions) for safety. The patient will participate in group, recreational, and milieu therapies and will be offered additional individual and family sessions as clinically appropriate. -Abilify HUITRON 400mg IM -Continue abilify 20mg po HS for 14 days -Continue Klonopin 1mg HS -Discontinue lisonopril in anticipation of starting [place] -EKG to ensure cardiac stability before starting [place] given age Inventory Assets Strengths: supportive relationships, willing to get treatment Needs: safety and stabilization, medication adjustment, additional coping skills, increased outpatient services Suicide Risk Level Suicide Risk Level: Low (q15 min observation checks) (denies SI, consistently elevated mood over the past week, feels safe and feels able to ask for support if needed) Risk Factors Assessment Male: No : Yes Do You Have Access To A Gun?: No (had a pistol but this was taken by her partner's daughter after his ) Health Problems: No Mental Health Diagnoses: Yes Substance Use Disorders: No Previous Attempt: Yes Family History of Suicide: No Previous Psychiatric Hospitalization: Yes Hopelessness: No Protective Factors Assessment Yazdanism Beliefs: Yes Stable Relationships: Yes Psychiatric History Identifying Data JUSTIN WU is a 68-year-old woman who has been living with her friend Sara in [place], has a history of bipolar disorder, and was admitted on 06/15/24 16:45 on a 201 voluntary commitment for galen. Chief Complaint "Everything is fantastic". History of Present Illness Daja was admitted from the medical floor, due to recent rhinovirus infection requiring respiratory isolation, for ongoing symptoms of acute galen in the context of multiple psychosocial stressors including the of her long-time partner, of her brother, legal zhao over his estate and moving in with her friend Sara. Further initial presenting history per initial psychiatry consult note by Dr. Hill on 06/08/2024: "On interview patient presents a euphoric affect and is often circumstantial/tangential with hyperverbal speech. She reports on February 15 that her boyfriend, Amol, from stomach cancer. A week later her brother, Sukhi, from pancreatic cancer. She talks about the events that led up to her boyfriend's and how she found him unresponsive. She feels guilty because she was angry at Amol prior to passing. She reports in Thanksgiving not getting along with her friend Sara and that she "supposedly" said "WTF I might as well kill Sara." States she does not remember saying this. She endorses poor sleep "tripp if I will get 3 to 4 hours". Says that her energy is "pretty good". Says that the ER feels like a "5 start resort" and appears happy about having a coloring book, gracious staff and getting food. Reports past psychiatric hospitalization was due to trazodone overdose and she was depressed. At that time she was "starving to " and lost a lot of weight. Reports past bipolar diagnosis but she does not believe she has it. Does not know specifics of family psychiatric history but reports that family member may have committed suicide. Reports starting Lexapro 3 weeks ago for anxiety and depression from PCP and was previously taking her friend's doses. She denies current SI. Attempted to assess for past psychiatric medications however she is quite tangential. She denies having medical problems other than hypertension. Social history: Lives with best friend Sara. Was previously living with boyfriend for past 16 years prior to him passing. No current outpatient psychiatry. Denies access to guns. Denies drug alcohol use. Unclear if patient can live with friend upon discharge. RN Note: "Patient's friend stated to this RN that she has concerns about the patient's judgement. She states "I'm scared for both our safety because there were 5 men [address] the sidewalk today when Peggy offered them some food from our house. She gave them some snacks and then told them all about us and our life stories, including that we live alone in my house. She's just telling random strangers about our lives and I don't know these men. What happens if they come back and try to hurt us? It's too scary and I don't want her telling my personal information to strangers." CM Note: "Met with pt to complete MH and suicide risk assessments. Pt presents with her friend, Sara Carcamo, with whom she has been staying the past few months. Pt is hyperverbal and mildly tangential. She endorses passive SI and does have a suicide attempt in 2020 by overdose. Pt was previously inpatient at [facility] in 2020 and diagnosed with MDD. Pt and friend report that pt has a history of behaviors closely resembling galen including minimal sleep with increased energy, impulsive spending, inability to concentrate, and mood instability/irritability. Pt states she is also experiencing lingering grief after losing both her brother and boyfriend in February to Cancer. Pts friend, Sara, reports that pt has been verbally aggressive recently and pt did threaten to kill Sara but does not recall doing so. Pt has also called Sara mean and evil. Pt has not slept in two weeks but was sleeping well prior to that. She has no current outpatient providers. Pts PCP has been prescribing her medications. Saar does state that pt may not be able to return to living with her and that it will need to be a discussion once pt has been stabilized. Per Sara, pt has never lived on her own as she has always either lived with her or boyfriend. Pt does have a drivers license but has driven only sparingly over the past couple of years due to increased anxiety behind the wheel. Pt denies current drug use but does report [facility] polysubstance use. She most recently was using marijuana heavily until about 3 years ago. Aside from Sara, pt has no local supports. Her family is from [place] and is not involved. Pt is seeking inpatient mental health treatment and is voluntary at this time. Process for medical clearance explained with pt verbalizing understanding."" Today she reports elevated mood, feels that this hospital and psychiatry unit is "fantastic" and expresses desire to start working. 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 Reflects that she is also skilled at writing and wonders if "the story of my life" could be published, requests that I read this. She continues to tolerate the Abilify and Klonopin which were started on the medical floor. She's motivated to start Abilify HUITRON. Psychiatric ROS notable for history of galen/psychosis, depression. Past Psychiatric History Current Psychiatric Diagnosis: Galen Outpatient Services: none currently Previous Psych Admissions: once-[facility] in 2020 Do You Have Access To A Gun?: No (had a pistol but this was taken by her partner's daughter after his ) History of Previous Suicide Attempt: Yes Describe Attempts in the Past: once in 2020 via overdose of trazodone Past Medication Trials: recalls allergic reaction to Depakote, bad response to Strattera per chart review, she isn't sure if she ever took [place], escitalopram prior to admission Additional Notes: Gun was taken by her partner's daughter from the safe. Daja doesn't know where it is so she spoke with local police who have reported it as "lost". She has no plans to buy a new gun. Allergies Allergy/AdvReac Type Severity Reaction Status Date / Time atomoxetine [From Strattera] AdvReac Muscle Pain Verified 06/08/24 01:37 Home Medications Medication Instructions Recorded Confirmed Type lisinopril 10 mg tablet 10 mg PO DAILY 06/08/24 06/16/24 History aripiprazole 10 mg tablet (Abilify) 20 mg (2 x 10 mg) PO HS #0 tabs 06/15/24 06/16/24 Rx clonazepam 1 mg tablet 1 mg PO BID PRN #0 tabs 06/15/24 06/16/24 Rx clonazepam 1 mg tablet 1 mg PO HS #0 tabs 06/15/24 06/16/24 Rx hydroxyzine HCl 25 mg tablet 50 mg (2 x 25 mg) PO HS #0 tabs 06/15/24 06/16/24 Rx hydroxyzine HCl 25 mg tablet 50 mg (2 x 25 mg) PO Q6 PRN #0 tabs 06/15/24 06/16/24 Rx olanzapine 5 mg disintegrating 5 mg PO Q8 PRN #0 tabs 06/15/24 06/16/24 Rx tablet Family History Family History of: Doesn't Know Alcohol History Hx of Alcohol Use Over the Past 12 Months: Yes (states "occasional" use) AUDIT Total Score: 2 Smoking Use Have You Smoked or Used Tobacco Products in the Last 30 Days: No Smoking Status: Former smoker Substance History Hx of Prescription Med Misuse Over the Past 12 Months: No Hx of Over the Counter Med Misuse Over the Past 12 Months: No Hx of Inhalent Misuse Over the Past 12 Months: No Hx of Organic Substance Use Over the Past 12 Months: No Hx of Illegal Substances/Street Drug Use Over Past 12 Months: No Problems as a Result of Past Substance Use: None Identified Personal History Highest Grade Completed: Some College (1 year at [employer]) Employment Status: Retired Marital Status: Beliefs That Will Affect Care: None Current Legal Problems: No Hx Legal Problems: No Patient History Social History Smoking Status: Former smoker Tobacco Type: Cigarettes Do You Dip or Chew Tobacco: No; Hx Alcohol Use: No Hx Substance Use: No Preferred Language: Latvian Communication Ability: Effective Sales Service Promoter Required: No Beliefs That Will Affect Care: None Current Living Situation: Other Current Living Situation Comment: Friend - Sara Carcamo Feels Safe at Home: Yes Gender Identity: Female Assistive Devices: Glasses Review of Systems Review of Systems: All systems reviewed & are unremarkable except as noted in HPI & below Physical Exam Psychiatric: Orientation: alert and oriented x 3 Apperance: appropriately dressed and + disheveled Eye Contact: good eye contact Motor Behavior: + psychomotor agitation (frequently moving) Speech: + pressured speech; + abnormal rate/rhythm/volume of speech (interrupts) Affect: + elated affect Mood: no depressed mood, no anxious mood and no irritable mood Thought Process: + tangential thought process and + flight of ideas Thought Content: + preoccupation (spending money) and + delusions (grandiose) Suicidal Thoughts: denies suicidal thoughts, denies suicidal plan and denies suicidal intent Homicidal Thoughts: denies homicidal thoughts Hallucinations: no auditory hallucinations and no visual hallucinations Cognition: recent memory grossly intact, remote memory grossly intact, attention grossly intact and language grossly intact Estimated Intelligence: consistent with education level Insight: + limited insight Judgment: + limited judgement Vital Signs (Past 24 Hours): Last Vital Signs Temp 36.6 C 06/16/24 06:32 Pulse 82 06/16/24 06:33 Resp 16 06/16/24 06:32 BP 115/78 06/16/24 06:33 Pulse Ox 97 06/16/24 06:32 O2 Del Method Room Air 06/16/24 06:32 Exam Statement: A physical exam was performed on the medical floor by Dr. Ridley for the purposes of medical clearance. I accept that physical as correct and adequate for the purposes of the inpatient physical exam. Results & Data ([facility]) Laboratory Results Laboratory Results - last 24 hr 06/15/24 17:16 SARS-CoV-2 (PCR) NEGATIVE Current Inpatient Medications Current Inpatient Medications: Current Inpatient Medications Acetaminophen (Acetaminophen 325 Mg Tab) 650 mg PO Q4H PRN PRN Reason: Headache or Minor Fever Stop: 07/15/24 11:56 Al Hydrox/Mg Hydrox/Simethicone (Aluminum/Magnesium Susp 30 Ml Udc) 30 ml PO Q4H PRN PRN Reason: GI Upset Stop: 07/15/24 11:56 Aripiprazole (Aripiprazole 10 Mg Tab) 20 mg PO HS [place] Stop: 07/15/24 21:59 Last Admin: 06/15/24 21:47 Dose: 20 mg Bismuth Subsalicylate (Bismuth Subsalicylate 262 Mg Chew) 2 tab PO Q30M PRN PRN Reason: Loose Stool/Diarrhea Stop: 07/15/24 11:56 Clonazepam (Clonazepam 1 Mg Tab) 1 mg PO BID PRN PRN Reason: agitation/restlessness Stop: 07/15/24 19:51 Clonazepam (Clonazepam 1 Mg Tab) 1 mg PO HS [place] Stop: 07/15/24 21:59 Last Admin: 06/15/24 21:48 Dose: 1 mg Hydroxyzine HCl (Hydroxyzine Hcl 25 Mg Tab) 50 mg PO HSZ PRN PRN Reason: Insomnia Stop: 07/15/24 11:56 Last Admin: 06/15/24 22:54 Dose: 50 mg Hydroxyzine HCl (Hydroxyzine Hcl 25 Mg Tab) 25 mg PO Q4H PRN PRN Reason: Anxiety Stop: 07/15/24 11:56 Lisinopril (Lisinopril 10 Mg Tab) 10 mg PO DAILY [place] Stop: 07/16/24 08:59 Magnesium Hydroxide (Magnesium Hydroxide Susp 30 Ml Udc) 30 ml PO DAILY PRN PRN Reason: Constipation Stop: 07/15/24 11:56 Olanzapine (Olanzapine Zydis 5 Mg Orally Dis. Tab) 5 mg PO Q8 PRN PRN Reason: agitation Stop: 07/15/24 19:51 Sodium Chloride (Sodium Chloride 0.65% Na Soln 45 Ml (Aldrich)) 1 - 2 sprays NA PRN PRN PRN Reason: Nasal Dryness/Congestion Stop: 07/15/24 11:56
[2024-06-16] MEDS: lisinopril 10 MG TAB PO SCH (09:07)
[2024-06-16] MEDS: ARIPiprazole 400 MG PRE-FILLED SYRINGE IM SCH (18:34)
--- NOTE | 2024-06-17 08:52 | Psychiatric Progress Note ---
Date of Service June 17, 2024 Impression / Recommendations Impression JUSTIN WU is a 68-year-old woman who has been living with her friend Sara in [place], has a history of bipolar disorder, and was admitted on 06/15/24 16:45 on a 201 voluntary commitment for galen. Diagnostically consistent with acute galen due to bipolar affective disorder. She continues to have classic symptoms of galen including grandiosity, distractibility, increased psychomotor activity/goal driven activity, rapid and extremely hyperverbal speech, tangential thought process with flight of ideas, spending excess money and trying to put purchases she cannot afford on her credit cards (including calling to have her credit limit increased in attempt to buy >4k in silver off an overnight infomercial), befriending and joining the cellphone plan of a new acquaintance she made on the medical floor while at the vending machine, and poor sleep. A: Ongoing acute galen. Tolerated Abilify Maintenna HUITRON without side effects. Discussed medication treatment options in detail. Discussed risks, benefits and alternatives. Patient would like to start and consented to Deport for BPAD acute galen. Reviewed side effects including but not limited to: dehydration, renal, thyroid, cardiac, drug interactions (NSAIDs, ACEIs, angiotensin receptor antagonists). Baseline labs of thyroid function, kidney function, weight, electrolytes, CBC, and UA were preformed and stable for initiation of Deport and EKG done and stable. MNPR-acute galen and disinhibited and easily influenced by peers, recent inappropriate boundaries with other patients Overall, I spent a total of 35 minutes on this case including meeting with the patient, reviewing the chart, nursing report, multidisciplinary team meeting, orders, and documentation. (1) Bipolar 1 disorder with moderate galen: (2) Insomnia due to mental disorder: Plan 06/17/2024: -Continue abilify 20mg po -Start Deport carbonate 300mg qhs. Will repeat Li level, TSH, Cr after 1 week 06/16/2024: The patient was admitted to the [facility] ([facility]) on q15 min checks (behavioral with suicide precautions) for safety. The patient will participate in group, recreational, and milieu therapies and will be offered additional individual and family sessions as clinically appropriate. -Abilify HUITRON 400mg IM given on 06/16/2024, next dose will be due ~07/14/2023 -Continue abilify 20mg po HS for 14 days -Continue Klonopin 1mg HS -Discontinue lisonopril in anticipation of starting Deport -EKG to ensure cardiac stability before starting Deport given age Inventory Assets Strengths: supportive relationships, willing to get treatment Needs: safety and stabilization, medication adjustment, additional coping skills, increased outpatient services Suicide Risk Level Suicide Risk Level: Low (q15 min observation checks) (denies SI, consistently elevated mood over the past week, feels safe and feels able to ask for support if needed) Risk Factors Assessment Male: No : Yes Do You Have Access To A Gun?: No (had a pistol but this was taken by her partner's daughter after his ) Health Problems: No Mental Health Diagnoses: Yes Substance Use Disorders: No Previous Attempt: Yes Family History of Suicide: No Previous Psychiatric Hospitalization: Yes Hopelessness: No Protective Factors Assessment Yarsanism Beliefs: Yes Stable Relationships: Yes Interval History Identifying Information JUSTIN WU is a 68-year-old woman who has been living with her friend Sara in [place], has a history of bipolar disorder, and was admitted on 06/15/24 16:45 on a 201 voluntary commitment for galen. Chief Complaint "I really want to work here, do you think we could get the Mrs. Humza huff?". Review of Systems Sleep Information Total Hours of Sleep: 4.30 Sleep Comments: Pt awake in room since 4:30 Meal Information Percent Meal Consumed - Breakfast: 100 Percent Meal Consumed - Lunch: 100 Percent Meal Consumed - Dinner: 100 Subjective Subjective Patient was seen & assessed and interval progress reviewed with treatment team nursing and social work. Hyperverbal, poor boundaries with peers at times, and monopolizes conversations. Attending groups, responds to redirection. Got Abilify HUITRON and tolerated this well. Only slept 4.5 hours last night. Today reports positive mood, used halloween makeup to add red to her checks, color to her eyelids and a cactus facepaint image. Denies any side effects from Abilify HUITRON. She remains interested in starting Deport. BP stable this morning even after stopping lisinopril which she is in agreement with doing. EKG completed, discussed results with her. She reflected on past losses of her mother at 1 years old, her brother's in February and her hope to return to [place] for [place] service in [place] and then [place] [facility] [place]-. Observed coloring and making notes of various financial calculations. Physical Exam Psychiatric Orientation: alert and oriented x 3 Apperance: appropriately dressed and + disheveled (very bright makeup ) Eye Contact: good eye contact Motor Behavior: + psychomotor agitation (frequently moving) Speech: + pressured speech; + abnormal rate/rhythm/volume of speech (interrupts, hyperverbal ) Affect: + elated affect Mood: no depressed mood, no anxious mood and no irritable mood Thought Process: + tangential thought process and + flight of ideas Thought Content: + preoccupation (spending money) and + delusions (grandiose) Suicidal Thoughts: denies suicidal thoughts, denies suicidal plan and denies suicidal intent Homicidal Thoughts: denies homicidal thoughts Hallucinations: no auditory hallucinations and no visual hallucinations Cognition: recent memory grossly intact, remote memory grossly intact, attention grossly intact and language grossly intact Estimated Intelligence: consistent with education level Insight: + limited insight Judgment: + limited judgement Vital Signs (Past 24 Hours) Last Vital Signs Temp 36.2 C L 06/17/24 08:33 Pulse 92 H 06/17/24 08:33 Resp 18 06/17/24 08:33 BP 124/89 06/17/24 08:33 Pulse Ox 96 06/17/24 08:33 O2 Del Method Room Air 06/17/24 08:33 Results & Data ([facility]) Current Inpatient Medications Current Inpatient Medications: Current Inpatient Medications Acetaminophen (Acetaminophen 325 Mg Tab) 650 mg PO Q4H PRN PRN Reason: Headache or Minor Fever Stop: 07/15/24 11:56 Al Hydrox/Mg Hydrox/Simethicone (Aluminum/Magnesium Susp 30 Ml Udc) 30 ml PO Q4H PRN PRN Reason: GI Upset Stop: 07/15/24 11:56 Aripiprazole (Aripiprazole 10 Mg Tab) 20 mg PO HS [place] Stop: 06/30/24 21:59 Last Admin: 06/16/24 21:08 Dose: 20 mg Bismuth Subsalicylate (Bismuth Subsalicylate 262 Mg Chew) 2 tab PO Q30M PRN PRN Reason: Loose Stool/Diarrhea Stop: 07/15/24 11:56 Clonazepam (Clonazepam 1 Mg Tab) 1 mg PO BID PRN PRN Reason: agitation/restlessness Stop: 07/15/24 19:51 Clonazepam (Clonazepam 1 Mg Tab) 1 mg PO HS [place] Stop: 07/15/24 21:59 Last Admin: 06/16/24 21:09 Dose: 1 mg Hydroxyzine HCl (Hydroxyzine Hcl 25 Mg Tab) 50 mg PO HSZ PRN PRN Reason: Insomnia Stop: 07/15/24 11:56 Last Admin: 06/15/24 22:54 Dose: 50 mg Hydroxyzine HCl (Hydroxyzine Hcl 25 Mg Tab) 25 mg PO Q4H PRN PRN Reason: Anxiety Stop: 07/15/24 11:56 Magnesium Hydroxide (Magnesium Hydroxide Susp 30 Ml Udc) 30 ml PO DAILY PRN PRN Reason: Constipation Stop: 07/15/24 11:56 Olanzapine (Olanzapine Zydis 5 Mg Orally Dis. Tab) 5 mg PO Q8 PRN PRN Reason: agitation Stop: 07/15/24 19:51 Sodium Chloride (Sodium Chloride 0.65% Na Soln 45 Ml ([place])) 1 - 2 sprays NA PRN PRN PRN Reason: Nasal Dryness/Congestion Stop: 07/15/24 11:56 Mental Health & Subst Abuse Tx Psychiatrist Name of Psychiatrist: Aleksandr Verde [address] [place] [address] Psychiatrist's Date Of Appointment With Psychiatric Provider: Walk ins only Mondays- 8:30AM-4pm Time of Appointment with Psychiatrist: Same day intake to be assigned a psychiatrist and therapist Therapist Name of Therapist: [facility] - [address] [place] [address] [place] [address] Therapist's Date of Therapist Appointment: Walk ins only Mondays- 8:30AM-4pm Time of Therapist Appointment: Same day intake to be assigned a psychiatrist and therapist Appliance Technician Name of Appliance Technician: Blended heel caser [place] Pal[place] Phone Number for Appliance Technician: [phone] Date of Appointment with Appliance Technician: 06/25/24 Time of Appointment with Appliance Technician: 10AM Case Management Appointment Comment: Intake will be held in your home Post Discharge Appointments Primary Care Physician Name Of Family Doctor/PCP: Ramesh Fernández [address] , [place] [address] Primary Care
--- OUTSIDE RECORDS SUMMARY | 2024-06-17 11:16 | External Medical Summary | Summary of Care ---
Author Name Unknown Organization [facility] Address [address] [place] [address] Phone [phone] Care Team Providers Care Business Information Analyst Name Role Phone Timothy Merrill DO Primary Care Provider [phone] Encounter Details Date Type Department Care Team (Late st Contact Info) Description 06/10/2024 Population Health External Data Unspecified Department Allergies Active Allergy Reactions Criticality Noted Date Comments Aripiprazole Neuro complications (Please comment) 05/08/2015 Sulfamethoxazole-Trime thoprim Renal complications High 09/28/2020 Valproic Acid 07/21/2020 Patient reports made mouth go "crooked" Atomoxetine Hcl 11/20/2016 Pt stated documented as of this encounter (statuses as of 06/10/2024) Medications Escitalopram Oxalate 10 MG Oral Tablet (Lexapro) Take 1 Tab by mouth daily. 15 Tab 1 Active risperiDONE 0.5 MG Oral Tablet (RisperDAL) Take 0.5 mg by mouth every night at bedtime. 1 Active Mirtazapine 15 MG Oral Tablet (Remeron) 1 Active buPROPion HCl ER (XL) 150 MG Oral Tablet Extended Release 24 Hour (Wellbutrin XL) 1 Active Saline Nasal [place] 0.65 % Nasal Solution (Denali Nasal [place]) Administer 2 Sprays into each nostril as needed for Congestion. for nasal dryness or congestion 88 mL 3 1 Active Omeprazole 40 MG Oral Capsule Delayed Release (PriLOSEC)Indica tions:Gastroesop hageal reflux disease without esophagitis TAKE ONE (1) CAPSULE BY MOUTH EVERY DAY 90 Capsule 1 2 Active amLODIPine Besylate 5 MG Oral Tablet (Norvasc)Indicat ions:HTN, goal below 140/90 TAKE ONE (1) TABLET BY MOUTH EVERY DAY 90 Tablet 1 2 Active Lisinopril 10 MG Oral Tablet (Prinivil)Indica tions:HTN, goal below 140/90 TAKE TWO TABLETS BY MOUTH IN THE MORNING 180 Tablet 3 Active documented as of this encounter (statuses as of 06/10/2024) Active Problems Problem Noted Date Diagnosed Date Protein-calorie malnutrition 04/04/2021 Gastro-esophageal reflux disease without esophag itis 07/05/2020 Age-related osteoporosis wit hout current pathological fracture 04/13/2020 Emphysema lung 04/04/2020 Osteoarthritis of spine with radiculopathy, lumb ar region 05/01/2017 Spinal stenosis of lumbar region 05/01/2017 Hereditary and idiopathic peripheral neuropathy 05/01/2017 HTN, goal below 140/90 12/18/2015 Overview: Per HTN Protocol Ulnar neuropathy of left upper extremity 016 Carpal tunnel syndrome of left wrist 09/06/2015 ADHD (attention deficit hyperactivity disorder) 08/14/2014 Overview (08/14/2014): Dr. Cai Depression, major, recurrent 08/14/2014 Overview (08/14/2014): Dr. Cai Vitamin D deficiency 08/01/2014 Personal history of malignant melanoma of skin 0 03/01/2013 Overview (02/27/2016): History melanoma R anterior shoulder 0.18mm [place] / documented as of this encounter (statuses as of 06/10/2024) Resolved Problems Problem Noted Date Diagnosed Date Resolved Date Near syncope 09/09/2020 06/19/2021 Hyperkalemia 09/09/2020 09/14/2020 VERA (acute kidney injury) 09/09/2020 Recurrent major depressive d isorder, in partial remission 07/05/2020 06/19/2021 Attention-deficit hyperactiv ity disorder, predominantly inattentive type 07/05/2020 Dizziness 03/01/2020 06/19/2021 Dizziness 02/29/2020 03/01/2020 UTI (urinary tract infection) 02/29/2020 03/06/2020 Recurrent major depressive d isorder, in partial remission 12/07/2018 05/12/2019 Difficult airway 06/07/2016 05/01/2018 Overview (06/07/2016): Extremely limited mouth opening. Able to place LMA 3 with difficulty. History of malignant melanoma of skin 02/27/2016 05/01/2017 Overview (02/27/2016): History melanoma R anterior shoulder 0.18mm [place] Overweight (BMI 25.0-29.9) 01/23/2016 1 08/20/2020 Personal history of other in fectious and parasitic disease 05/29/2015 05/29/2015 Overview (05/29/2015): history chickenpox, ugandan measles Skin cancer 05/29/2015 05/29/2015 Overview (05/29/2015): nonmetastatic melanoma Hallux abductovalgus with bunions 05/08/2015 01/23/2016 Hammertoe 05/08/2015 01/23/2016 Tailor's bunion of left foot 05/08/2015 01/23/2016 Generalized anxiety disorder 08/01/2014 06/19/2021 Overview (08/14/2014): Dr. Cai Sinus problem 08/01/2014 08/01/2014 Hypertension, goal below 140/80 08/01/2014 12/21/2015 Overview: Per HTN Protocol Insomnia 08/01/2014 06/19/2021 Malignant melanoma of skin o f upper limb, including shoulder 11/24/2012 03/01/2014 Overview (11/24/2012): Melanoma 0.18mm [place] R anterior shoulder (very thin, mostly in situ) documented as of this encounter (statuses as of 06/10/2024) Immunizations Name Administration Dates Next Due COVID-19 mRNA, LNP-s, No Pre serve, 2-Dose Series (Pfizer) 09/13/2020,08/16/2020 PPD 08/14/2012 Pneumococcal Polysaccharide PPV23 (Pneumovax) Seasonal Influenza, PF, 6 M & above, IM , (FluLaval or Fluzone) 04/04/2020 TDAP (age 10 and older)(Boostrix) 07/14/2020 TDAP, Age 7 and older, IM (Adacel) 07/21/2008 Zoster Vaccine Recombinant (Shingrix) 05/30/2020 ,04/14/2020 documented as of this encounter Social History Tobacco Use Types Packs/Day Years Used Date Smoking Tobacco: Former Cigarettes 0.5 3 0 03/26/2006 - 03/26/2009 Smokeless Tobacco: Never Alcohol Use Standard Drinks/Week Comments Not Currently 0 (1 standard drink = 0.6 oz pur e alcohol) PHQ-2 Answer Date Recorded PHQ Adult Total Score 0 11/09/2020 Hunger Vital Sign Answer Date Recorded Worried About Running Out of Food in the Last Ye ar Never true 05/12/2019 Ran Out of Food in the Last Year Never true 05/12/2019 Utilities Answer Date Recorded Do you have trouble paying y our heating, water, or electric bill? (Adult - for ages 18 years and over) Not on file 12/23/2023 Is your family able to pay t he heat, water, or electric bill? (Household - for ages 0-17 years) Not on file 12/23/2023 Does your family have access to good internet? (Household - for ages 0-17 years) Not on file 12/23/2023 Social Connections Answer Date Recorded How often do you feel lonely or isolated from those around you? (Adult - for ages 18 years and over) Not on file 12/23/2023 Comments No Sex and Gender Information Value Date Recorded Sex Assigned at Not on file Legal Sex Female 3:32 PM EDT Gender Identity Not on file Sexual Orientation Not on file documented as of this encounter Functional Status * Are you deaf or do you have serious difficulty hearing? Answer Date of Assessment Author No 09/09/2020 2:50 AM Junito Crespo RN * Are you blind or do you have serious difficulty seeing, even when wearing glasses? Answer Date of Assessment Author No 09/09/2020 2:50 AM Junito Crespo RN * Do you have serious difficulty walking or climbing stairs? (5 years old or older) Answer Date of Assessment Author No 09/09/2020 2:50 AM Junito Crespo RN * Do you have difficulty dressing or bathing? (5 years old or older) Answer Date of Assessment Author No 09/09/2020 2:50 AM Junito Crespo RN * Because of a physical, mental, or emotional condition, do you have difficulty doing errands alone such as visiting a doctors office or shopping? (15 years old or older) Answer Date of Assessment Author No 09/09/2020 2:50 AM Junito Crespo RN documented as of this encounter Mental Status * Because of a physical, mental, or emotional condition, do you have serious difficulty concentrating, remembering, or making decisions? (5 years old or older) Answer Entry Date Author Yes 09/09/2020 2:50 AM Junito Crespo RN documented in this encounter Plan of Treatment Scheduled Procedures Name Priority Associated Diagnoses Date/Ti me COLONOSCOPY FLEXIBLE PROXIMAL DIAGNOSTIC Recall Colon cancer screening Health Maintenance Due Date Last Done Comments Alpha-1 Antitrypsin 1972 O2 ASSESSMENT COMPLETED IN PAST YEAR FOR COPD 1972 Cologuard 10/08/1999 Sigmoidoscopy 10/08/1999 *COPD SEVERITY VERIFIED BY PFT 04/06/2020 Albumin/Creatinine Ratio 04/28/2021 04/28/2018, 02/2017 *BISPHONATE OR OTHER ACCEPTABLE MEDICATION NEEDED FOR OSTEOPOROSIS (REFER TO SMARTSET #1146) 06/22/2021 Pneumococcal Vaccine: 65+ Years (2 of 2 - PCV) 07/05/2021 07/05/2020 Mammogram 09/06/2021 09/06/2020, 07/07, 06/25/2018, Additional history exists Depression Monitoring 11/09/2021 11/09/2020 DXA Scan 04/11/2022 04/11/2020 GFR 06/19/2022 06/19/2021, 09/2020, 03/19/2021, Additional history exists Fecal Occult Blood Test 03/21/2023 03/21/2022, 03/21 Lipid Panel 04/28/2023 04/28/2018, 04/07, 08/14/2016, Additional history exists COVID-19 Vaccine ( season) 2024 09/13/2020, 08/16/2020 Influenza Vaccine (FLU shot) (#1) 2024 04/04/2020 Diabetes Screening 06/19/2024 06/19/2021, 1 07/09/2020, 03/19/2021, Additional history exists Colonoscopy 05/19/2025 05/19/2015, 05/19/2015 Colorectal Cancer Screening 05/19/2025 DTap/Tdap Vaccines (3 - Td or Tdap) 07/14/2030 07/14/2020, 07/21/2008 VITAMIN D LEVEL ONCE IN A LIFETIME-USE SMARTSET# 49021 Completed 05/12/2019, 04/28/2018, 05/13/2016, Additional history exists Zoster Vaccines Completed 05/30/2020, 04/14/2020 HPV (Gardasil) Vaccine Aged Out No lo nger eligible based on patient's age to complete this topic Hepatitis B Vaccine Aged Out No longe r eligible based on patient's age to complete this topic MENINGOCOCCAL (MENACTRA/MENVEO) Aged Out No longer eligible based on patient's age to complete this topic documented as of this encounter Medical Devices Implanted Type Area Trademark Affixer Device Identifier Shelf Expiration Date Model / Serial / Lot Plate T 2.7 - [id number] Implanted:Qty: 1 on 06/16/2015 by Sweta Dominguez DPM at OR [facility] Left: Foot GELACIO : ORTHOPAEDICS [id number] / / Screw Bone 2.7x24 [id number] - [id number] Implanted:Qty: 1 on 06/16/2015 by Sweta Dominguez DPM at OR [facility] Left: Foot GELACIO : TRAUMA [id number] / / Screw Bone Lkg 2.7x10 40-09757 - [id number] Implanted:Qty: 1 on 06/16/2015 by Sweta Dominguez DPM at OR [facility] Left: Foot GELACIO : TRAUMA [id number] / / Screw Lkg 2.7x18 40-47862 - [id number] Implanted:Qty: 1 on 06/16/2015 by Sweta Dominguez DPM at OR [facility] Left: Foot GELACIO : TRAUMA [id number] / / Screw Non Lkg 2.7x18 40-35863 - [id number] Implanted:Qty: 1 on 06/16/2015 by Sweta Dominguez DPM at OR [facility] Left: Foot GELACIO : TRAUMA [id number] / / Screw Julianna 4.0x40 [id number] - [id number] Implanted:Qty: 1 on 06/16/2015 by Sweta Dominguez DPM at OR [facility] Left: Foot GELACIO : TRAUMA [id number] / / Gleacio Smart Toe 11 Implanted:Qty: 1 on 06/16/2015 by Sweta Dominguez DPM at OR [facility] Left: Foot 01/04/2020 STO-15P / / [id number] [place] Smart [id number] Implanted:Qty: 1 on 06/16/2015 by Sweta Dominguez DPM at OR [facility] Left: Foot GELACIO : ORTHOPAEDICS 11/04/2019 STO-16P / / [id number] 2.0mm Asnis Micro Cannulated Screw, Titanium Implanted:Qty: 1 on 06/07/2016 by Sweta Dominguez DPM at OR [facility] Left: Foot GELACIO [id number] / / Screw Julianna 3.0x12mm [id number] - [id number] Implanted:Qty: 1 on 06/07/2016 by Sweta Dominguez DPM at OR [facility] Left: Foot GELACIO : TRAUMA [id number] / / Screw Julian[place] 3.0x20mm 40-45872 - [id number] Implanted:Qty: 1 on 06/07/2016 by Sweta Dominguez DPM at OR [facility] Left: Foot GELACIO : TRAUMA [id number] / / Lens 18.0 Sn60wf - [id number] - [id number] Implanted:Qty: 1 on 12/22/2020 by Everton Tovar MD at OR [facility] Left: Eye ERIK : SURGICAL 08/07/2025 SN60WF.1 80 / [id number] / documented as of this encounter Advance Directives * Full Code (Latest Code Status on File) Date Activated Date Inactivated Comments 03/19/2021 5:52 PM 03/27/2021 9:19 PM This order r eflects the patients wishes and were consensually agreed upon. * Full Code Date Activated Date Inactivated Comments 09/09/2020 1:20 AM 09/10/2020 5:49 PM This order ref lects the patients wishes and were consensually agreed upon. * Full Code Date Activated Date Inactivated Comments 02/29/2020 2:40 AM 03/01/2020 7:32 PM This order r eflects the patients wishes and were consensually agreed upon. Question Answer Comments Discussion of Advance Directives occurred with: Patient Care Teams Business Information Analyst Relationship Specialty Start Date End Date Timothy Merrill DO [address] [place] [address] PCP - General Family Medicine 03/21/22 documented as of this encounter
--- NOTE | 2024-06-17 15:07 | Electrocardiogram Report ---
Test Reason : Blood Pressure : */* mmHG Vent. Rate : 102 BPM Atrial Rate : 102 BPM P-R Int : 130 ms QRS Dur : 96 ms QT Int : 364 ms P-R-T Axes : 79 50 64 degrees QTcB Int : 474 ms Sinus tachycardia Left atrial enlargement Borderline ECG When compared with ECG of 11-Jun-2024 13:49, No significant change was found Confirmed by Hector Cisneros ([id number]) on 06/17/2024 3:07:16 PM Referred By: Cristy Daley Confirmed By: Hector Cisneros
[2024-06-17] MEDS: LITHIUM CARBONATE 300 MG TAB PO SCH (21:14)
--- NOTE | 2024-06-18 08:51 | Psychiatric Progress Note ---
Date of Service June 18, 2024 Impression / Recommendations Impression JUSTIN WU is a 68-year-old woman who has been living with her friend Sara in [place], has a history of bipolar disorder, and was admitted on 06/15/24 16:45 on a 201 voluntary commitment for galen. Diagnostically consistent with acute galen due to bipolar affective disorder. She continues to have classic symptoms of galen including grandiosity, distractibility, increased psychomotor activity/goal driven activity, rapid and extremely hyperverbal speech, tangential thought process with flight of ideas, spending excess money and trying to put purchases she cannot afford on her credit cards (including calling to have her credit limit increased in attempt to buy >4k in silver off an overnight infomercial), befriending and joining the cellphone plan of a new acquaintance she made on the medical floor while at the vending machine, and poor sleep. A: Ongoing acute galen, tolerated initial dose of [place] and BP has remained stable even after discontinuing lisinopril so far. She reports chronic foot numbness/tingling. Recent B12 level normal. Reviewed option to trial gabapentin which she consents to and wants to try. Discussed side effects including but not limited to increasing confusion, liver effects, dizziness, sedation, can impair motor function/driving/machinery operation. Will increase Klonopin to further help with insomnia. MNPR-acute galen and disinhibited and easily influenced by peers, recent inappropriate boundaries with other patients Overall, I spent a total of 40 minutes on this case including meeting with the patient, reviewing the chart, nursing report, multidisciplinary team meeting, orders, and documentation. (1) Bipolar 1 disorder with moderate galen: (2) Insomnia due to mental disorder: Plan 06/18/2024: -Increase Klonopin to 2mg HS -Gabapentin 100mg BID prn for nerve pain 06/17/2024: -Continue abilify 20mg po -Start [place] carbonate 300mg qhs. Will repeat Li level, TSH, Cr after 1 week 06/16/2024: The patient was admitted to the [facility] ([facility] mental health unit) on q15 min checks (behavioral with suicide precautions) for safety. The patient will participate in group, recreational, and milieu therapies and will be offered additional individual and family sessions as clinically appropriate. -Abilify HUITRON 400mg IM given on 06/16/2024, next dose will be due ~07/14/2023 -Continue abilify 20mg po HS for 14 days -Continue Klonopin 1mg HS -Discontinue lisonopril in anticipation of starting [place] -EKG to ensure cardiac stability before starting [place] given age Inventory Assets Strengths: supportive relationships, willing to get treatment Needs: safety and stabilization, medication adjustment, additional coping skills, increased outpatient services Suicide Risk Level Suicide Risk Level: Low (q15 min observation checks) (denies SI, consistently elevated mood over the past week, feels safe and feels able to ask for support if needed) Risk Factors Assessment Male: No : Yes Do You Have Access To A Gun?: No (had a pistol but this was taken by her rosette caro's daughter after his ) Health Problems: No Mental Health Diagnoses: Yes Substance Use Disorders: No Previous Attempt: Yes Family History of Suicide: No Previous Psychiatric Hospitalization: Yes Hopelessness: No Protective Factors Assessment Episcopal Beliefs: Yes Stable Relationships: Yes Interval History Identifying Information JUSTIN WU is a 68-year-old woman who has been living with her friend Sara in [place], has a history of bipolar disorder, and was admitted on 06/15/24 16:45 on a 201 voluntary commitment for galen. Chief Complaint "Do you think I could work at the hospital or is that just a silly dream". Review of Systems Sleep Information Total Hours of Sleep: 4.30 Sleep Comments: HS medications and PRN Vistaril Meal Information Percent Meal Consumed - Breakfast: 100 Percent Meal Consumed - Lunch: 100 Percent Meal Consumed - Dinner: 100 Nutrition Comment: Pt eats multiple times a day Subjective Subjective Patient was seen & assessed and interval progress reviewed with treatment team nursing and social work. Awake around 3am and got prn Vistaril and did fall back asleep but not until about 4am. Requires redirection in groups, responds to redirection and slightly more insightful about how much she is talking. Rated her mood as "blissfully happy". Today reflecting more on what she is thinking about for future plans. Denies any medication side effects. Appropriately showed some grief reflecting on not having her brother and other family around for the holiday season. Has books all throughout her room, remains focused on coloring and engaging a lot with peers. Brings up many years of foot numbness, she wonders about starting a medication to help with the discomfort of this given it can cause some tingling. Physical Exam Psychiatric Orientation: alert and oriented x 3 Apperance: appropriately dressed and + disheveled (very bright makeup, multiple nakul (3)) Eye Contact: good eye contact Motor Behavior: + psychomotor agitation (frequently moving) Speech: + abnormal rate/rhythm/volume of speech (interrupts, hyperverbal ) Affect: + elated affect (though did show some sadness related to grief today) Mood: no depressed mood, no anxious mood and no irritable mood Thought Process: + tangential thought process and + flight of ideas Thought Content: + preoccupation (spending money) and + delusions (grandiose) Suicidal Thoughts: denies suicidal thoughts, denies suicidal plan and denies suicidal intent Homicidal Thoughts: denies homicidal thoughts Hallucinations: no auditory hallucinations and no visual hallucinations Cognition: recent memory grossly intact, remote memory grossly intact, attention grossly intact and language grossly intact Estimated Intelligence: consistent with education level Insight: + limited insight (improving a bit) Judgment: + limited judgement Vital Signs (Past 24 Hours) Last Vital Signs Temp 36.9 C 06/18/24 06:35 Pulse 87 06/18/24 06:35 Resp 16 06/18/24 06:35 BP 110/74 06/18/24 06:35 Pulse Ox 96 06/17/24 08:33 O2 Del Method Room Air 06/17/24 08:33 Results & Data ([facility]) Current Inpatient Medications Current Inpatient Medications: Current Inpatient Medications Acetaminophen (Acetaminophen 325 Mg Tab) 650 mg PO Q4H PRN PRN Reason: Headache or Minor Fever Stop: 07/15/24 11:56 Al Hydrox/Mg Hydrox/Simethicone (Aluminum/Magnesium Susp 30 Ml Udc) 30 ml PO Q4H PRN PRN Reason: GI Upset Stop: 07/15/24 11:56 Aripiprazole (Aripiprazole 10 Mg Tab) 20 mg PO HS [place] Stop: 06/30/24 21:59 Last Admin: 06/17/24 21:14 Dose: 20 mg Bismuth Subsalicylate (Bismuth Subsalicylate 262 Mg Chew) 2 tab PO Q30M PRN PRN Reason: Loose Stool/Diarrhea Stop: 07/15/24 11:56 Clonazepam (Clonazepam 1 Mg Tab) 1 mg PO BID PRN PRN Reason: agitation/restlessness Stop: 07/15/24 19:51 Clonazepam (Clonazepam 1 Mg Tab) 1 mg PO HS [place] Stop: 07/15/24 21:59 Last Admin: 06/17/24 21:14 Dose: 1 mg Hydroxyzine HCl (Hydroxyzine Hcl 25 Mg Tab) 50 mg PO HSZ PRN PRN Reason: Insomnia Stop: 07/15/24 11:56 Last Admin: 06/18/24 03:07 Dose: 50 mg Hydroxyzine HCl (Hydroxyzine Hcl 25 Mg Tab) 25 mg PO Q4H PRN PRN Reason: Anxiety Stop: 07/15/24 11:56 [place] Carbonate ([place] Carbonate 300 Mg Tab) 300 mg PO HS [place] Stop: 07/17/24 21:59 Last Admin: 06/17/24 21:14 Dose: 300 mg Magnesium Hydroxide (Magnesium Hydroxide Susp 30 Ml Udc) 30 ml PO DAILY PRN PRN Reason: Constipation Stop: 07/15/24 11:56 Multivitamins (Multivitamin Tab) 1 tab PO QAM [place] Stop: 07/18/24 08:59 Olanzapine (Olanzapine Zydis 5 Mg Orally Dis. Tab) 5 mg PO Q8 PRN PRN Reason: agitation Stop: 07/15/24 19:51 Sodium Chloride (Sodium Chloride 0.65% Na Soln 45 Ml ([place])) 1 - 2 sprays NA PRN PRN PRN Reason: Nasal Dryness/Congestion Stop: 07/15/24 11:56 Mental Health & Subst Abuse Tx Psychiatrist Name of Psychiatrist: [place] [place] [address] Psychiatrist's Date Of Appointment With Psychiatric Provider: Walk ins only Mondays- 8:30AM-4pm Time of Appointment with Psychiatrist: Same day intake to be assigned a psychiatrist and therapist Therapist Name of Therapist: Aleksandr Verde [facility] [address] [place] [address] Therapist's Date of Therapist Appointment: Walk ins only Mondays- 8:30AM-4pm Time of Therapist Appointment: Same day intake to be assigned a psychiatrist and therapist Vehicle Inspector Name of Vehicle Inspector: Blended disease case manager rn Lucina Quintana Candelario Phone Number for Vehicle Inspector: [phone] Date of Appointment with Vehicle Inspector: 06/25/24 Time of Appointment with Vehicle Inspector: 10AM Case Management Appointment Comment: Intake will be held in your home Post Discharge Appointments Primary Care Physician Name Of Family Doctor/PCP: Ramesh Fernández [address] , [place] [id number] Primary Care
[2024-06-18] MEDS: MULTIVITAMIN TAB PO SCH (09:24)
[2024-06-18] MEDS ORDERED: GABAPENTIN 100 MG CAP PO PRN (15:54)
[2024-06-18] MEDS: clonazePAM 1 MG TAB PO SCH (21:16)
[2024-06-18] MEDS: SODIUM CHLORIDE 0.65% NA SOLN 45 ML (OCEAN) PRN (21:23)
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
[2024-06-19] MEDS: ACETAMINOPHEN 325 MG TAB PO PRN (15:29)
[2024-06-19] MEDS: LITHIUM CARBONATE 300 MG TAB PO SCH (21:20)
[2024-06-19] MEDS: TEMAZEPAM 15 MG CAPSULE PO SCH (21:21)
[2024-06-19] MEDS: ALUMINUM/MAGNESIUM SUSP 30 ML UDC PO PRN (23:52)
--- NOTE | 2024-06-20 13:19 | Psychiatric Progress Note ---
Date of Service June 20, 2024 Impression / Recommendations Impression JUSTIN WU is a 68-year-old woman who has been living with her friend Sara in [place], has a history of bipolar disorder, and was admitted on 06/15/24 16:45 on a 201 voluntary commitment for galen. Diagnostically consistent with acute galen due to bipolar affective disorder. She continues to have classic symptoms of galen including grandiosity, distractibility, increased psychomotor activity/goal driven activity, rapid and extremely hyperverbal speech, tangential thought process with flight of ideas, spending excess money and trying to put purchases she cannot afford on her credit cards (including calling to have her credit limit increased in attempt to buy >4k in silver off an overnight infomercial), befriending and joining the cellphone plan of a new acquaintance she made on the medical floor while at the vending machine, and poor sleep. A: Patient continues to be hyperverbal with poor boundaries. Concern for active galen. Continues to have a decreased need for sleep with elevated mood and energy. Today we will adjust sleep medications and address paresthesia concerns. MNPR-acute galen and disinhibited and easily influenced by peers, recent inappropriate boundaries with other patients Overall, I spent a total of 30 minutes on this case including meeting with the patient, reviewing the chart, nursing report, multidisciplinary team meeting, orders, and documentation. (1) Bipolar 1 disorder with moderate galen: (2) Insomnia due to mental disorder: Plan 06/20/2024: Start Gabapentin 300mg HS. 06/19/2024: Discontinue clonazepam. Start temazepam 15 mg at bedtime. Increase lithium to 450 mg at bedtime. 06/18/2024: -Increase Klonopin to 2mg HS -Gabapentin 100mg BID prn for nerve pain 06/17/2024: -Continue abilify 20mg po -Start Sorento carbonate 300mg qhs. Will repeat Li level, TSH, Cr after 1 week 06/16/2024: [facility] unit) on q15 min checks (behavioral with suicide precautions) for safety. The patient will participate in group, recreational, and milieu therapies and will be offered additional individual and family sessions as clinically appro priate. -Abilify HUITRON 400mg IM given on 06/16/2024, next dose will be due ~07/14/2023 -Continue abilify 20mg po HS for 14 days -Continue Klonopin 1mg HS -Discontinue lisinopril in anticipation of starting [place] -EKG to ensure cardiac stability before starting Soren[place] given age Inventory Assets Strengths: supportive relationships, willing to get treatment Needs: safety and stabilization, medication adjustment, additional coping skills, increased outpatient services Suicide Risk Level Suicide Risk Level: Low (q15 min observation checks) (denies SI, consistently elevated mood over the past week, feels safe and feels able to ask for support if needed) Risk Factors Assessment Male: No : Yes Do You Have Access To A Gun?: No (had a pistol but this was taken by her partner's daughter after his ) Health Problems: No Mental Health Diagnoses: Yes Substance Use Disorders: No Previous Attempt: Yes Family History of Suicide: No Previous Psychiatric Hospitalization: Yes Hopelessness: No Protective Factors Assessment Synagogue Beliefs: Yes Stable Relationships: Yes Interval History Identifying Information JUSTIN WU is a 68-year-old woman who has been living with her friend Sara in [place], has a history of bipolar disorder, and was admitted on 06/15/24 16:45 on a 201 voluntary commitment for galen. Chief Complaint "Fantastic, amazingly" Review of Systems Sleep Information Total Hours of Sleep: 4 Sleep Comments: Up early but redirected back to bed Meal Information Percent Meal Consumed - Breakfast: 75 Percent Meal Consumed - Lunch: 75 Percent Meal Consumed - Dinner: 50 Nutrition Comment: Pt eats multiple times a day Subjective Subjective Patient was seen & assessed and interval progress reviewed with treatment team nursing and social work Nursing reported patient slept 4 hours. She reports waking up at 3 to 4 AM and fell back asleep and woke up at 8 AM. 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 She denies taking naps in the afternoon and says that she would "rather be productive". Says that her energy level is "good and ready to run a marathon". B/l hand tremor noted on exam. She denies a history of sleep talking or sleepwalking behavior. Reports delayed sleep onset after getting nighttime medications. Says there has been no change in thirst or urination. Physical Exam Mental Examination Appearance: Unkempt Eye Contact: Direct Eye Contact Motor Behavior: Unremarkable Speech: Excessive and Circumstantial Mood: Euphoric and Expansive Affect: Calm Thought Process: Goal Oriented and Racing Insight: Poor (to limited) Judgement: Poor (to limited) Vital Signs (Past 24 Hours) Last Vital Signs Temp 36.6 C 06/20/24 06:38 Pulse 93 H 06/20/24 06:39 Resp 16 06/20/24 06:38 BP 128/86 06/20/24 06:39 Pulse Ox 96 06/17/24 08:33 O2 Del Method Room Air 06/17/24 08:33 Results & Data ([facility]) Current Inpatient Medications Current Inpatient Medications: Current Inpatient Medications Acetaminophen (Acetaminophen 325 Mg Tab) 650 mg PO Q4H PRN PRN Reason: Headache or Minor Fever Stop: 07/15/24 11:56 Last Admin: 06/19/24 15:29 Dose: 650 mg Al Hydrox/Mg Hydrox/Simethicone (Aluminum/Magnesium Susp 30 Ml Udc) 30 ml PO Q4H PRN PRN Reason: GI Upset Stop: 07/15/24 11:56 Last Admin: 06/19/24 23:52 Dose: 30 ml Aripiprazole (Aripiprazole 10 Mg Tab) 20 mg PO HS [place] Stop: 06/30/24 21:59 Last Admin: 06/19/24 21:19 Dose: 20 mg Bismuth Subsalicylate (Bismuth Subsalicylate 262 Mg Chew) 2 tab PO Q30M PRN PRN Reason: Loose Stool/Diarrhea Stop: 07/15/24 11:56 Clonazepam (Clonazepam 1 Mg Tab) 1 mg PO BID PRN PRN Reason: agitation/restlessness Stop: 07/15/24 19:51 Gabapentin (Gabapentin 100 Mg Cap) 100 mg PO BID PRN PRN Reason: nerve pain Stop: 07/18/24 20:59 Hydroxyzine HCl (Hydroxyzine Hcl 25 Mg Tab) 50 mg PO HSZ PRN PRN Reason: Insomnia Stop: 07/15/24 11:56 Last Admin: 06/18/24 03:07 Dose: 50 mg Hydroxyzine HCl (Hydroxyzine Hcl 25 Mg Tab) 25 mg PO Q4H PRN PRN Reason: Anxiety Stop: 07/15/24 11:56 Sorento Carbonate (Sorento Carbonate 300 Mg Tab) 450 mg PO HS [place] Stop: 07/19/24 21:59 Last Admin: 06/19/24 21:20 Dose: 450 mg Magnesium Hydroxide (Magnesium Hydroxide Susp 30 Ml Udc) 30 ml PO DAILY PRN PRN Reason: Constipation Stop: 07/15/24 11:56 Multivitamins (Multivitamin Tab) 1 tab PO QAM [place] Stop: 07/18/24 08:59 Last Admin: 06/20/24 09:31 Dose: 1 tab Olanzapine (Olanzapine Zydis 5 Mg Orally Dis. Tab) 5 mg PO Q8 PRN PRN Reason: agitation Stop: 07/15/24 19:51 Sodium Chloride (Sodium Chloride 0.65% Na Soln 45 Ml (Ida)) 1 - 2 sprays NA PRN PRN PRN Reason: Nasal Dryness/Congestion Stop: 07/15/24 11:56 Last Admin: 06/18/24 21:23 Dose: 2 sprays Temazepam (Temazepam 15 Mg Capsule) 15 mg PO HSZ [place] Stop: 07/19/24 21:59 Last Admin: 06/19/24 21:21 Dose: 15 mg Mental Health & Subst Abuse Tx Psychiatrist Name of Psychiatrist: [facility] - [address] [place] [address] [place] [address] Psychiatrist's Date Of Appointment With Psychiatric Provider: Walk ins only Mondays- 8:30AM-4pm Time of Appointment with Psychiatrist: Same day intake to be assigned a psychiatrist and therapist Therapist Name of Therapist: [facility] - [address] [place] [address] [place] [id number] Therapist's Date of Therapist Appointment: Walk ins only Mondays- 8:30AM-4pm Time of Therapist Appointment: Same day intake to be assigned a psychiatrist and therapist Survey Technician Name of Survey Technician: Ana Paulaed catalytic case operator Lucina Palomino Phone Number for Survey Technician: [phone] Date of Appointment with Survey Technician: 06/25/24 Time of Appointment with Survey Technician: 10AM Case Management Appointment Comment: Intake will be held in your home Post Discharge Appointments Primary Care Physician Name Of Family Doctor/PCP: Ramesh Fernández [address] [place] [address] [place] [address] Primary Care Other #1: Name of Aftercare Appointment: [facility] Phone Number of Aftercare Appointment: [phone] Aftercare Appointment Comment: Call to schedule intake, he can meet you at your home for the intake
[2024-06-20] MEDS: GABAPENTIN 300 MG CAP PO SCH (21:15)
--- NOTE | 2024-06-21 15:33 | Psychiatric Progress Note ---
Date of Service June 21, 2024 Impression / Recommendations Impression JUSTIN WU is a 68-year-old woman who has been living with her friend Sara in [place], has a history of bipolar disorder, and was admitted on 06/15/24 16:45 on a 201 voluntary commitment for galen. Diagnostically consistent with acute galen due to bipolar affective disorder. She continues to have classic symptoms of galen including grandiosity, distractibility, increased psychomotor activity/goal driven activity, rapid and extremely hyperverbal speech, tangential thought process with flight of ideas, spending excess money and trying to put purchases she cannot afford on her credit cards (including calling to have her credit limit increased in attempt to buy >4k in silver off an overnight infomercial), befriending and joining the cellphone plan of a new acquaintance she made on the medical floor while at the vending machine, and poor sleep. A: Patient continues to be hyperverbal with poor boundaries. Concern for active galen. Continues to have a decreased need for sleep with elevated mood and energy. Slept better last night. Paresthesias slightly improved. Pt c/o inc urinary urgency and hand tremor; will draw lithium level to confirm level. MNPR-acute galen and disinhibited and easily influenced by peers, recent inappropriate boundaries with other patients Overall, I spent a total of 30 minutes on this case including meeting with the patient, reviewing the chart, nursing report, multidisciplinary team meeting, orders, and documentation. (1) Bipolar 1 disorder with moderate galen: (2) Insomnia due to mental disorder: Plan 06/21/2024: Start Gabapentin 100mg BID morning and afternoon. [place] level. 06/20/2024: Start Gabapentin 300mg HS. 06/19/2024: Discontinue clonazepam. Start temazepam 15 mg at bedtime. Increase lithium to 450 mg at bedtime. 06/18/2024: -Increase Klonopin to 2mg HS -Gabapentin 100mg BID prn for nerve pain 06/17/2024: -Continue abilify 20mg po -Start [place] carbonate 300mg qhs. Will repeat Li level, TSH, Cr after 1 week 06/16/2024: The patient was admitted to the [facility] ([facility] mental health unit) on q15 min checks (behavioral with suicide precautions) for safety. The patient will participate in group, recreational, and milieu therapies and will be offered additional individual and family sessions as clinically appropriate. -Abilify HUITRON 400mg IM given on 06/16/2024, next dose will be due ~07/14/2023 -Continue abilify 20mg po HS for 14 days -Continue Klonopin 1mg HS -Discontinue lisinopril in anticipation of starting [place] -EKG to ensure cardiac stability before starting [place] given age Inventory Assets Strengths: supportive relationships, willing to get treatment Needs: safety and stabilization, medication adjustment, additional coping skills, increased outpatient services Suicide Risk Level Suicide Risk Level: Low (q15 min observation checks) (denies SI, consistently elevated mood over the past week, feels safe and feels able to ask for support if needed) Risk Factors Assessment Male: No : Yes Do You Have Access To A Gun?: No (had a pistol but this was taken by her partner's daughter after his ) Health Problems: No Mental Health Diagnoses: Yes Substance Use Disorders: No Previous Attempt: Yes Family History of Suicide: No Previous Psychiatric Hospitalization: Yes Hopelessness: No Protective Factors Assessment Catholic Beliefs: Yes Stable Relationships: Yes Interval History Identifying Information JUSTIN WU is a 68-year-old woman who has been living with her friend Sara in [place], has a history of bipolar disorder, and was admitted on 06/15/24 16:45 on a 201 voluntary commitment for galen. Chief Complaint "not ready for a marathon today" Review of Systems Sleep Information Total Hours of Sleep: 5 Sleep Comments: Up early but redirected back to bed Meal Information Percent Meal Consumed - Breakfast: 100 Percent Meal Consumed - Lunch: 75 Percent Meal Consumed - Dinner: 50 Nutrition Comment: Pt eats multiple times a day Subjective Subjective Patient was seen & assessed and interval progress reviewed with treatment team nursing and social work overnight patient slept 5 hours. Complained of headache. Intrusive with peers often speaking for them and interrupting family meetings. On interview she reports normally taking Excedrin Migraine for headache. Says that her headache has naturally resolved. Says she is urinating more and has a sense of urgency. Says energy is a "little slower than usual". She spoke to Sara's great niece and says that Sara is upset with her because of things that the patient has had to her in the past. She reports feeling more rested today. Unclear where she will live after discharge. Called patient's primary contact (SARA HUNTER), went to voice mail. Physical Exam Mental Examination Appearance: Unkempt Eye Contact: Direct Eye Contact Motor Behavior: Unremarkable Speech: Excessive and Circumstantial Mood: Euphoric and Expansive Affect: Calm Thought Process: Goal Oriented and Racing Insight: Poor (to limited) Judgement: Poor (to limited) Vital Signs (Past 24 Hours) Last Vital Signs Temp 36.5 C 06/21/24 06:37 Pulse 92 H 06/21/24 06:38 Resp 18 06/21/24 06:37 BP 153/96 H 06/21/24 06:38 Pulse Ox 96 06/17/24 08:33 O2 Del Method Room Air 06/17/24 08:33 Results & Data ([facility]) Current Inpatient Medications Current Inpatient Medications: Current Inpatient Medications Acetaminophen (Acetaminophen 325 Mg Tab) 650 mg PO Q4H PRN PRN Reason: Headache or Minor Fever Stop: 07/15/24 11:56 Last Admin: 06/21/24 12:47 Dose: 650 mg Al Hydrox/Mg Hydrox/Simethicone (Aluminum/Magnesium Susp 30 Ml Udc) 30 ml PO Q4H PRN PRN Reason: GI Upset Stop: 07/15/24 11:56 Last Admin: 06/19/24 23:52 Dose: 30 ml Aripiprazole (Aripiprazole 10 Mg Tab) 20 mg PO HS [place] Stop: 06/30/24 21:59 Last Admin: 06/20/24 21:15 Dose: 20 mg Bismuth Subsalicylate (Bismuth Subsalicylate 262 Mg Chew) 2 tab PO Q30M PRN PRN Reason: Loose Stool/Diarrhea Stop: 07/15/24 11:56 Clonazepam (Clonazepam 1 Mg Tab) 1 mg PO BID PRN PRN Reason: agitation/restlessness Stop: 07/15/24 19:51 Gabapentin (Gabapentin 300 Mg Cap) 300 mg PO HS [place] Stop: 07/20/24 21:59 Last Admin: 06/20/24 21:15 Dose: 300 mg Gabapentin (Gabapentin 100 Mg Cap) 100 mg PO BID@0900,1400 [place] Stop: 07/22/24 08:59 Hydroxyzine HCl (Hydroxyzine Hcl 25 Mg Tab) 50 mg PO HSZ PRN PRN Reason: Insomnia Stop: 07/15/24 11:56 Last Admin: 06/18/24 03:07 Dose: 50 mg Hydroxyzine HCl (Hydroxyzine Hcl 25 Mg Tab) 25 mg PO Q4H PRN PRN Reason: Anxiety Stop: 07/15/24 11:56 Ibuprofen (Ibuprofen 200 Mg Tab) 400 mg PO DAILY PRN PRN Reason: Migraine Headache Stop: 07/21/24 15:26 [place] Carbonate ([place] Carbonate 300 Mg Tab) 450 mg PO HS [place] Stop: 07/19/24 21:59 Last Admin: 06/20/24 21:14 Dose: 450 mg Magnesium Hydroxide (Magnesium Hydroxide Susp 30 Ml Udc) 30 ml PO DAILY PRN PRN Reason: Constipation Stop: 07/15/24 11:56 Multivitamins (Multivitamin Tab) 1 tab PO QAM [place] Stop: 07/18/24 08:59 Last Admin: 06/21/24 08:34 Dose: 1 tab Olanzapine (Olanzapine Zydis 5 Mg Orally Dis. Tab) 5 mg PO Q8 PRN PRN Reason: agitation Stop: 07/15/24 19:51 Sodium Chloride (Sodium Chloride 0.65% Na Soln 45 Ml ([place])) 1 - 2 sprays NA PRN PRN PRN Reason: Nasal Dryness/Congestion Stop: 07/15/24 11:56 Last Admin: 06/18/24 21:23 Dose: 2 sprays Temazepam (Temazepam 15 Mg Capsule) 15 mg PO HSZ [place] Stop: 07/19/24 21:59 Last Admin: 06/20/24 21:15 Dose: 15 mg Mental Health & Subst Abuse Tx Psychiatrist Name of Psychiatrist: [facility] - [address] [place], [place] [address] [id number] Psychiatrist's Date Of Appointment With Psychiatric Provider: Walk ins only Mondays- 8:30AM-4pm Time of Appointment with Psychiatrist: Same day intake to be assigned a psychiatrist and therapist Therapist Name of Therapist: [facility] [address] [place] [address] Therapist's Date of Therapist Appointment: Walk ins only Mondays- 8:30AM-4pm Time of Therapist Appointment: Same day intake to be assigned a psychiatrist and therapist Dental Appliance Repairer Name of Dental Appliance Repairer: Blended casework manager Lucina Palomino Phone Number for Dental Appliance Repairer: [phone] Date of Appointment with Dental Appliance Repairer: 06/25/24 Time of Appointment with Dental Appliance Repairer: 10AM Case Management Appointment Comment: Intake will be held in your home Post Discharge Appointments Primary Care Physician Name Of Family Doctor/PCP: Ramesh Fernández [address] , [place] [address] Primary Care Other #1: Name of Aftercare Appointment: [facility] Phone Number of Aftercare Appointment: [phone] Aftercare Appointment Comment: Call to schedule intake, he can meet you at your home for the intake
[2024-06-21] MEDS: hydrOXYzine HCl 25 MG TAB PO PRN (19:05)
[2024-06-21] MEDS: IBUPROFEN 200 MG TAB PO PRN (19:39)
[2024-06-22] MEDS: GABAPENTIN 100 MG CAP PO SCH (08:51)
--- NOTE | 2024-06-22 13:47 | Psychiatric Progress Note ---
Date of Service June 22, 2024 Impression / Recommendations Impression JUSTIN WU is a 68-year-old woman who has been living with her friend Sara in [place], has a history of bipolar disorder, and was admitted on 06/15/24 16:45 on a 201 voluntary commitment for galen. Diagnostically consistent with acute galen due to bipolar affective disorder. She continues to have classic symptoms of galen including grandiosity, distractibility, increased psychomotor activity/goal driven activity, rapid and extremely hyperverbal speech, tangential thought process with flight of ideas, spending excess money and trying to put purchases she cannot afford on her credit cards (including calling to have her credit limit increased in attempt to buy >4k in silver off an overnight infomercial), befriending and joining the cellphone plan of a new acquaintance she made on the medical floor while at the vending machine, and poor sleep. A: Patient continues to be in active galen. Presents a decreased need for sleep with elevated energy and mood. Appears to be improving slowly. [place] level resulted in subtherapeutic at 0.4. Concern for lithium associated tremor and diabetes insipidus. Concern patient cannot tolerate lithium and will discontinue. Will start Depakote for galen; medication side effects and adverse effects discussed with patient and agreeable. Working with social work to establish case management. MNPR-acute galen and disinhibited and easily influenced by peers, recent inappropriate boundaries with other patients Overall, I spent a total of 40 minutes on this case including meeting with the patient, reviewing the chart, nursing report, multidisciplinary team meeting, orders, and documentation. (1) Bipolar 1 disorder with moderate galen: (2) Insomnia due to mental disorder: (3) Tremor of both hands: (4) Diabetes insipidus: Plan 06/22/2024: Discontinue lithium. Start Depakote DR to 250 mg at bedtime. 06/21/2024: Start Gabapentin 100mg BID morning and afternoon. [place] level. 06/20/2024: Start Gabapentin 300mg HS. 06/19/2024: Discontinue clonazepam. Start temazepam 15 mg at bedtime. Increase lithium to 450 mg at bedtime. 06/18/2024: -Increase Klonopin to 2mg HS -Gabapentin 100mg BID prn for nerve pain 06/17/2024: -Continue abilify 20mg po -Start [place] carbonate 300mg qhs. Will repeat Li level, TSH, Cr after 1 week 06/16/2024: The patient [facility] to the [facility] on q15 min checks (behavioral with suicide precautions) for safety. The patient will participate in group, recreational, and milieu therapies and will be offered additional individual and family sessions as clinically appropriate. -Abilify HUITRON 400mg IM given on 06/16/2024, next dose will be due ~07/14/2023 -Continue abilify 20mg po HS for 14 days -Continue Klonopin 1mg HS -Discontinue lisinopril in anticipation of starting [place] -EKG to ensure cardiac stability before starting [place] given age Inventory Assets Strengths: supportive relationships, willing to get treatment Needs: safety and stabilization, medication adjustment, additional coping skills, increased outpatient services Suicide Risk Level Suicide Risk Level: Low (q15 min observation checks) (denies SI, consistently elevated mood over the past week, feels safe and feels able to ask for support if needed) Risk Factors Assessment Male: No : Yes Do You Have Access To A Gun?: No (had a pistol but this was taken by her partner's daughter after his ) Health Problems: No Mental Health Diagnoses: Yes Substance Use Disorders: No Previous Attempt: Yes Family History of Suicide: No Previous Psychiatric Hospitalization: Yes Hopelessness: No Protective Factors Assessment Buddhist Beliefs: Yes Stable Relationships: Yes Interval History Identifying Information JUSTIN WU is a 68-year-old woman who has been living with her friend Sara in [place], has a history of bipolar disorder, and was admitted on 06/15/24 16:45 on a 201 voluntary commitment for galen. Chief Complaint Galen/Tremor/Urinary urgency&frequency Review of Systems Sleep Information Total Hours of Sleep: 3.5 Sleep Comments: Up early but redirected back to bed Meal Information Percent Meal Consumed - Breakfast: 100 Percent Meal Consumed - Lunch: 75 Percent Meal Consumed - Dinner: 90 Nutrition Comment: Pt eats multiple times a day Subjective Subjective Patient was seen & assessed and interval progress reviewed with treatment team nursing and social work Patient slept 3.5 hours. Elevated blood pressure. She reports waking up at 2 AM and then completed a 1.3 mile bike run. Reports usually doing 2 miles every morning on the unit. Complains of urinating more and having more urgency and frequency. Continued tremor. Reports contacting boyfriend's daughter and says that there is a hearing for the estate on July 12. Says that she contributed to many of her boyfriend's finances and assets wants them back. Presents poor boundaries on the unit when I speak to other patients. Physical Exam Mental Examination Appearance: Unkempt Eye Contact: Direct Eye Contact Motor Behavior: Unremarkable Speech: Excessive and Circumstantial Mood: Euphoric and Expansive Affect: Calm Thought Process: Goal Oriented and Racing Insight: Poor (to limited) Judgement: Poor (to limited) Vital Signs (Past 24 Hours) Last Vital Signs Temp 36.1 C L 06/22/24 02:19 Pulse 84 06/22/24 02:19 Resp 18 06/22/24 02:19 BP 158/92 H 06/22/24 02:19 Pulse Ox 97 06/22/24 02:19 O2 Del Method Room Air 06/22/24 02:19 Results & Data ([facility]) Laboratory Results Laboratory Results - last 24 hr 06/21/24 15:51 [place] 0.4 L Current Inpatient Medications Current Inpatient Medications: Current Inpatient Medications Acetaminophen (Acetaminophen 325 Mg Tab) 650 mg PO Q4H PRN PRN Reason: Headache or Minor Fever Stop: 07/15/24 11:56 Last Admin: 06/21/24 23:16 Dose: 650 mg Al Hydrox/Mg Hydrox/Simethicone (Aluminum/Magnesium Susp 30 Ml Udc) 30 ml PO Q4H PRN PRN Reason: GI Upset Stop: 07/15/24 11:56 Last Admin: 06/19/24 23:52 Dose: 30 ml Aripiprazole (Aripiprazole 10 Mg Tab) 20 mg PO HS [place] Stop: 06/30/24 21:59 Last Admin: 06/21/24 21:24 Dose: 20 mg Bismuth Subsalicylate (Bismuth Subsalicylate 262 Mg Chew) 2 tab PO Q30M PRN PRN Reason: Loose Stool/Diarrhea Stop: 07/15/24 11:56 Clonazepam (Clonazepam 1 Mg Tab) 1 mg PO BID PRN PRN Reason: agitation/restlessness Stop: 07/15/24 19:51 Divalproex Sodium (Divalproex Delay Release 250 Mg Tabec) 250 mg PO HS [place] Stop: 07/22/24 21:59 Gabapentin (Gabapentin 300 Mg Cap) 300 mg PO HS [place] Stop: 07/20/24 21:59 Last Admin: 06/21/24 21:24 Dose: 300 mg Gabapentin (Gabapentin 100 Mg Cap) 100 mg PO BID@0900,1400 [place] Stop: 07/22/24 08:59 Last Admin: 06/22/24 08:51 Dose: 100 mg Hydroxyzine HCl (Hydroxyzine Hcl 25 Mg Tab) 50 mg PO HSZ PRN PRN Reason: Insomnia Stop: 07/15/24 11:56 Last Admin: 06/18/24 03:07 Dose: 50 mg Hydroxyzine HCl (Hydroxyzine Hcl 25 Mg Tab) 25 mg PO Q4H PRN PRN Reason: Anxiety Stop: 07/15/24 11:56 Last Admin: 06/21/24 19:05 Dose: 25 mg Ibuprofen (Ibuprofen 200 Mg Tab) 400 mg PO DAILY PRN PRN Reason: Migraine Headache Stop: 07/21/24 15:26 Last Admin: 06/22/24 02:12 Dose: 400 mg Magnesium Hydroxide (Magnesium Hydroxide Susp 30 Ml Udc) 30 ml PO DAILY PRN PRN Reason: Constipation Stop: 07/15/24 11:56 Multivitamins (Multivitamin Tab) 1 tab PO QAM [place] Stop: 07/18/24 08:59 Last Admin: 06/22/24 08:51 Dose: 1 tab Olanzapine (Olanzapine Zydis 5 Mg Orally Dis. Tab) 5 mg PO Q8 PRN PRN Reason: agitation Stop: 07/15/24 19:51 Sodium Chloride (Sodium Chloride 0.65% Na Soln 45 Ml ([place])) 1 - 2 sprays NA PRN PRN PRN Reason: Nasal Dryness/Congestion Stop: 07/15/24 11:56 Last Admin: 06/18/24 21:23 Dose: 2 sprays Temazepam (Temazepam 15 Mg Capsule) 15 mg PO HSZ [place] Stop: 07/19/24 21:59 Last Admin: 06/21/24 21:27 Dose: 15 mg Mental Health & Subst Abuse Tx Psychiatrist Name of Psychiatrist: [address] [place] [address] Psychiatrist's Date Of Appointment With Psychiatric Provider: Walk ins only Mondays- 8:30AM-4pm Time of Appointment with Psychiatrist: Same day intake to be assigned a psychiatrist and therapist Therapist Name of Therapist: [facility] - [address] [facility] [place] [address] Therapist's Date of Therapist Appointment: Walk ins only Mondays- 8:30AM-4pm Time of Therapist Appointment: Same day intake to be assigned a psychiatrist and therapist Certified Nurse Aide Name of Certified Nurse Aide: Blended case packer Lucina Palomino Phone Number for Certified Nurse Aide: [phone] Date of Appointment with Certified Nurse Aide: 06/25/24 Time of Appointment with Certified Nurse Aide: 10AM Case Management Appointment Comment: Intake will be held in your home Post Discharge Appointments Primary Care Physician Name Of Family Doctor/PCP: Ramesh Fernández [address] [place] [address] Primary Care Other #1: Name of Aftercare Appointment: [facility] Phone Number of Aftercare Appointment: [phone] Aftercare Appointment Comment: Call to schedule intake, he can meet you at your home for the intake
[2024-06-22] MEDS: DIVALPROEX DELAY RELEASE 250 MG TABEC PO SCH (21:15)
--- NOTE | 2024-06-23 13:52 | Psychiatric Progress Note ---
Date of Service June 23, 2024 Impression / Recommendations Impression JUSTIN WU is a 68-year-old woman who has been living with her friend Sara in [place], has a history of bipolar disorder, and was admitted on 06/15/24 16:45 on a 201 voluntary commitment for galen. Diagnostically consistent with acute galen due to bipolar affective disorder. She continues to have classic symptoms of galen including grandiosity, distractibility, increased psychomotor activity/goal driven activity, rapid and extremely hyperverbal speech, tangential thought process with flight of ideas, spending excess money and trying to put purchases she cannot afford on her credit cards (including calling to have her credit limit increased in attempt to buy >4k in silver off an overnight infomercial), befriending and joining the cellphone plan of a new acquaintance she made on the medical floor while at the vending machine, and poor sleep. A: Tremor and urinary urgency and frequency from lithium resolving. She presented an improved night of sleep with more stable mood and energy today. Sh e continues to present poor boundary control and has been labile. Plan to further increase titration of Depakote to 500 mg at night. MNPR-acute galen and disinhibited and easily influenced by peers, recent inappropriate boundaries with other patients Overall, I spent a total of 40 minutes on this case including meeting with the patient, reviewing the chart, nursing report, multidisciplinary team meeting, orders, and documentation. (1) Bipolar 1 disorder with moderate galen: (2) Insomnia due to mental disorder: (3) Tremor of both hands: (4) Diabetes insipidus: Plan 06/23/2024: Increase Depakote DR to 500 mg at bedtime. 06/22/2024: Discontinue lithium. Start Depakote DR to 250 mg at bedtime. 06/21/2024: Start Gabapentin 100mg BID morning and afternoon. [place] level. 06/20/2024: Start Gabapentin 300mg HS. 06/19/2024: Discontinue clonazepam. Start temazepam 15 mg at bedtime. Increase lithium to 450 mg at bedtime. 06/18/2024: -Increase Klonopin to 2mg HS -Gabapentin 100mg BID prn for nerve pain 06/17/2024: -Continue abilify 20mg po -Start [place] carbonate 300mg qhs. Will repeat Li level, TSH, Cr after 1 week 06/16/2024: The patient was admitted to the [facility] on q15 min checks (behavioral with suicide precautions) for safety. The patient will participate in group, recreational, and milieu therapies and will be offered additional individual and family sessions as clinically appropriate. -Abilify HUITRON 400mg IM given on 06/16/2024, next dose will be due ~07/14/2023 -Continue abilify 20mg po HS for 14 days -Continue Klonopin 1mg HS -Discontinue lisinopril in anticipation of starting [place] -EKG to ensure cardiac stability before starting [place] given age Inventory Assets Strengths: supportive relationships, willing to get treatment Needs: safety and stabilization, medication adjustment, additional coping skills, increased outpatient services Suicide Risk Level Suicide Risk Level: Low (q15 min observation checks) (denies SI, consistently elevated mood over the past week, feels safe and feels able to ask for support if needed) Risk Factors Assessment Male: No : Yes Do You Have Access To A Gun?: No (had a pistol but this was taken by her partner's daughter after his ) Health Problems: No Mental Health Diagnoses: Yes Substance Use Disorders: No Previous Attempt: Yes Family History of Suicide: No Previous Psychiatric Hospitalization: Yes Hopelessness: No Protective Factors Assessment Jehovah'S Witness Beliefs: Yes Stable Relationships: Yes Interval History Identifying Information JUSTIN WU is a 68-year-old woman who has been living with her friend Sara in [place], has a history of bipolar disorder, and was admitted on 06/15/24 16:45 on a 201 voluntary commitment for galen. Chief Complaint Galen Review of Systems Sleep Information Total Hours of Sleep: 6 Sleep Comments: Up early but redirected back to bed Meal Information Percent Meal Consumed - Breakfast: 100 Percent Meal Consumed - Lunch: 100 Percent Meal Consumed - Dinner: 70 Nutrition Comment: Pt eats multiple times a day Subjective Subjective Patient was seen & assessed and interval progress reviewed with treatment team nursing and social work Overnight slept 6 hours. Blood pressure stable. Has been engaging in self- care. Has presented poor boundary control and has been hoarding food. On interview the patient is seen laying correction in the cardboard a gingerbread house with her feet sticking out. She reports feeling like a "[facility]aja in [facility]". She becomes emotionally labile and discusses how she has been asking to heat up the food frequently. Becomes tearful. She reports sleeping well through the night with 0 disruptions. Says that she has less of a tremor and her urinary urgency has been reduced. She appears distractible and has difficulty staying focused on the conversation. She rates her energy "not as high as before". Rates her mood as "okay". Says she is going to get in touch with her family. Physical Exam Mental Examination Appearance: Unkempt Eye Contact: Direct Eye Contact Motor Behavior: Unremarkable Speech: Excessive and Circumstantial Mood: Euphoric and Expansive Affect: Calm Thought Process: Goal Oriented and Racing Insight: Poor (to limited) Judgement: Poor (to limited) Vital Signs (Past 24 Hours) Last Vital Signs Temp 36.6 C 06/23/24 06:32 Pulse 87 06/23/24 06:33 Resp 16 06/23/24 06:32 BP 124/84 06/23/24 06:33 Pulse Ox 97 06/22/24 02:19 O2 Del Method Room Air 06/22/24 02:19 Results & Data ([facility]) Current Inpatient Medications Current Inpatient Medications: Current Inpatient Medications Acetaminophen (Acetaminophen 325 Mg Tab) 650 mg PO Q4H PRN PRN Reason: Headache or Minor Fever Stop: 07/15/24 11:56 Last Admin: 06/22/24 23:44 Dose: 650 mg Al Hydrox/Mg Hydrox/Simethicone (Aluminum/Magnesium Susp 30 Ml Udc) 30 ml PO Q4H PRN PRN Reason: GI Upset Stop: 07/15/24 11:56 Last Admin: 06/19/24 23:52 Dose: 30 ml Aripiprazole (Aripiprazole 10 Mg Tab) 20 mg PO HS [place] Stop: 06/30/24 21:59 Last Admin: 06/22/24 21:15 Dose: 20 mg Bismuth Subsalicylate (Bismuth Subsalicylate 262 Mg Chew) 2 tab PO Q30M PRN PRN Reason: Loose Stool/Diarrhea Stop: 07/15/24 11:56 Clonazepam (Clonazepam 1 Mg Tab) 1 mg PO BID PRN PRN Reason: agitation/restlessness Stop: 07/15/24 19:51 Divalproex Sodium (Divalproex Delay Release 250 Mg Tabec) 250 mg PO HS [place] Stop: 07/22/24 21:59 Last Admin: 06/22/24 21:15 Dose: 250 mg Gabapentin (Gabapentin 300 Mg Cap) 300 mg PO HS [place] Stop: 07/20/24 21:59 Last Admin: 06/22/24 21:15 Dose: 300 mg Gabapentin (Gabapentin 100 Mg Cap) 100 mg PO BID@0900,1400 [place] Stop: 07/22/24 08:59 Last Admin: 06/23/24 13:00 Dose: 100 mg Hydroxyzine HCl (Hydroxyzine Hcl 25 Mg Tab) 50 mg PO HSZ PRN PRN Reason: Insomnia Stop: 07/15/24 11:56 Last Admin: 06/22/24 23:41 Dose: 50 mg Hydroxyzine HCl (Hydroxyzine Hcl 25 Mg Tab) 25 mg PO Q4H PRN PRN Reason: Anxiety Stop: 07/15/24 11:56 Last Admin: 06/23/24 12:59 Dose: 25 mg Ibuprofen (Ibuprofen 200 Mg Tab) 400 mg PO DAILY PRN PRN Reason: Migraine Headache Stop: 07/21/24 15:26 Last Admin: 06/23/24 13:30 Dose: 400 mg Magnesium Hydroxide (Magnesium Hydroxide Susp 30 Ml Udc) 30 ml PO DAILY PRN PRN Reason: Constipation Stop: 07/15/24 11:56 Multivitamins (Multivitamin Tab) 1 tab PO QAM [place] Stop: 07/18/24 08:59 Last Admin: 06/23/24 08:47 Dose: 1 tab Olanzapine (Olanzapine Zydis 5 Mg Orally Dis. Tab) 5 mg PO Q8 PRN PRN Reason: agitation Stop: 07/15/24 19:51 Sodium Chloride (Sodium Chloride 0.65% Na Soln 45 Ml ([place])) 1 - 2 sprays NA PRN PRN PRN Reason: Nasal Dryness/Congestion Stop: 07/15/24 11:56 Last Admin: 06/18/24 21:23 Dose: 2 sprays Temazepam (Temazepam 15 Mg Capsule) 15 mg PO HSZ [place] Stop: 07/19/24 21:59 Last Admin: 06/22/24 21:15 Dose: 15 mg Mental Health & Subst Abuse Tx Psychiatrist Name of Psychiatrist: [address] [place] [address] Psychiatrist's Date Of Appointment With Psychiatric Provider: Walk ins only Mondays- 8:30AM-4pm Time of Appointment with Psychiatrist: Same day intake to be assigned a psychiatrist and therapist Therapist Name of Therapist: [facility] - [address] [facility] [place] [address] Therapist's Date of Therapist Appointment: Walk ins only Mondays- 8:30AM-4pm Time of Therapist Appointment: Same day intake to be assigned a psychiatrist and therapist Pivot End Polisher Name of Pivot End Polisher: [facility], Blended pillowcase turner- Lilian Palomino Phone Number for Pivot End Polisher: [phone] Date of Appointment with Pivot End Polisher: 07/02/24 Time of Appointment with Pivot End Polisher: 2PM Case Management Appointment Comment: Intake will be held at the office [address] [place] [id number] Post Discharge Appointments Primary Care Physician Name Of Family Doctor/PCP: Ramesh Fernández [address] [place] [address] Primary Care Other #1: Name of Aftercare Appointment: [facility] Phone Number of Aftercare Appointment: [phone] Aftercare Appointment Comment: Call to schedule intake, he can meet you at your home for the intake
[2024-06-23] MEDS: DIVALPROEX DELAY RELEASE 500 MG TAB PO SCH (22:06)
[2024-06-24] MEDS: clonazePAM 1 MG TAB PO PRN (04:24)
--- NOTE | 2024-06-24 11:46 | Psychiatric Progress Note ---
Date of Service June 24, 2024 Impression / Recommendations Impression JUSTIN WU is a 68-year-old woman who has been living with her friend Sara in [place], has a history of bipolar disorder, and was admitted on 06/15/24 16:45 on a 201 voluntary commitment for galen. Diagnostically consistent with acute galen due to bipolar affective disorder. She continues to have classic symptoms of galen including grandiosity, distractibility, increased psychomotor activity/goal driven activity, rapid and extremely hyperverbal speech, tangential thought process with flight of ideas, spending excess money and trying to put purchases she cannot afford on her credit cards (including calling to have her credit limit increased in attempt to buy >4k in silver off an overnight infomercial), befriending and joining the cellphone plan of a new acquaintance she made on the medical floor while at the vending machine, and poor sleep. A: Tremor and urinary urgency and frequency from lithium resolved. Continues to present a decreased need for sleep needing high dose benzodiazepines. Mood and energy normalizing. She continues to present poor boundary control and has been labile at times. Tolerating Depakote well. Will adjust her sleep regimen today. MNPR-acute galen and disinhibited and easily influenced by peers, recent inappropriate boundaries with other patients Overall, I spent a total of 40 minutes on this case including meeting with the patient, reviewing the chart, nursing report, multidisciplinary team meeting, orders, and documentation. (1) Bipolar 1 disorder with moderate galen: (2) Insomnia due to mental disorder: (3) Tremor of both hands: (4) Diabetes insipidus: Plan 06/24/2024: D/c Temazepam. Start Clonazepam 1.5mg HS 06/23/2024: Increase Depakote DR to 500 mg at bedtime. 06/22/2024: Discontinue lithium. Start Depakote DR to 250 mg at bedtime. 06/21/2024: Start Gabapentin 100mg BID morning and afternoon. Saltaire level. 06/20/2024: Start Gabapentin 300mg HS. 06/19/2024: Discontinue clonazepam. Start temazepam 15 mg at bedtime. Increase lithium to 450 mg at bedtime. 06/18/2024: -Increase Klonopin to 2mg HS -Gabapentin 100mg BID prn for nerve pain 06/17/2024: -Continue abilify 20mg po -Start Saltaire carbonate 300mg qhs. Will repeat Li level, TSH, Cr after 1 week 06/16/2024: The patient was admitted to the [facility] ([facility]) on q15 min checks (behavioral with suicide precautions) for safety. The patient will participate in group, recreational, and milieu therapies and will be offered additional individual and family sessions as clinically appropriate. -Abilify HUITRON 400mg IM given on 06/16/2024, next dose will be due ~07/14/2023 -Continue abilify 20mg po HS for 14 days -Continue Klonopin 1mg HS -Discontinue lisinopril in anticipation of starting Saltaire -EKG to ensure cardiac stability before starting Saltaire given age Inventory Assets Strengths: supportive relationships, willing to get treatment Needs: safety and stabilization, medication adjustment, additional coping skills, increased outpatient services Suicide Risk Level Suicide Risk Level: Low (q15 min observation checks) (denies SI, consistently elevated mood over the past week, feels safe and feels able to ask for support if needed) Risk Factors Assessment Male: No : Yes Do You Have Access To A Gun?: No (had a pistol but this was taken by her partner's daughter after his ) Health Problems: No Mental Health Diagnoses: Yes Substance Use Disorders: No Previous Attempt: Yes Family History of Suicide: No Previous Psychiatric Hospitalization: Yes Hopelessness: No Protective Factors Assessment Christianity Beliefs: Yes Stable Relationships: Yes Interval History Identifying Information JUSTIN WU is a 68-year-old woman who has been living with her friend Sara in [place], has a history of bipolar disorder, and was admitted on 06/15/24 16:45 on a 201 voluntary commitment for galen. Chief Complaint Galen Review of Systems Sleep Information Total Hours of Sleep: 4.5 Sleep Comments: Up early but redirected back to bed Meal Information Percent Meal Consumed - Breakfast: 100 Percent Meal Consumed - Lunch: 100 Percent Meal Consumed - Dinner: 90 Nutrition Comment: Pt eats multiple times a day Subjective Subjective Patient was seen & assessed and interval progress reviewed with treatment team nursing and social work Patient rated her mood as 8 out of 10 and mixed. On interview she reports that she will not get hot food because she takes a long time to eat and cannot keep asking to have a heated. Asking why she cannot be here for the rest of her life [place] she reports feeling the Klonopin was more effective for sleep. Reports that Sara had called her. reports that Sara [place]. Rates her mood as "good". Energy is "okay". Says that she liked a staff member playing personal songs and asked them for an autograph. Reports her tremors better and urinating normally. Complains of dizziness when standing up suddenly and this has been happening since admission. Reports numbness and tingling in feet are improved. Physical Exam Mental Examination Appearance: Unkempt Eye Contact: Direct Eye Contact Motor Behavior: Unremarkable Speech: Excessive and Circumstantial Mood: Euthymic Affect: Calm Thought Process: Goal Oriented and Racing Insight: Poor (to limited) Judgement: Poor (to limited) Vital Signs (Past 24 Hours) Last Vital Signs Temp 36.5 C 06/24/24 06:26 Pulse 97 H 06/24/24 06:26 Resp 16 06/24/24 06:26 BP 136/90 06/24/24 06:26 Pulse Ox 97 06/22/24 02:19 O2 Del Method Room Air 06/22/24 02:19 Results & Data ([facility]) Current Inpatient Medications Current Inpatient Medications: Current Inpatient Medications Acetaminophen (Acetaminophen 325 Mg Tab) 650 mg PO Q4H PRN PRN Reason: Headache or Minor Fever Stop: 07/15/24 11:56 Last Admin: 06/24/24 04:23 Dose: 650 mg Al Hydrox/Mg Hydrox/Simethicone (Aluminum/Magnesium Susp 30 Ml Udc) 30 ml PO Q4H PRN PRN Reason: GI Upset Stop: 07/15/24 11:56 Last Admin: 06/19/24 23:52 Dose: 30 ml Aripiprazole (Aripiprazole 10 Mg Tab) 20 mg PO HS [place] Stop: 06/30/24 21:59 Last Admin: 06/23/24 22:05 Dose: 20 mg Bismuth Subsalicylate (Bismuth Subsalicylate 262 Mg Chew) 2 tab PO Q30M PRN PRN Reason: Loose Stool/Diarrhea Stop: 07/15/24 11:56 Clonazepam (Clonazepam 1 Mg Tab) 1 mg PO BID PRN PRN Reason: agitation/restlessness Stop: 07/15/24 19:51 Last Admin: 06/24/24 04:24 Dose: 1 mg Divalproex Sodium (Divalproex Delay Release 500 Mg Tab) 500 mg PO HS [place] Stop: 07/23/24 21:59 Last Admin: 06/23/24 22:06 Dose: 500 mg Gabapentin (Gabapentin 300 Mg Cap) 300 mg PO HS [place] Stop: 07/20/24 21:59 Last Admin: 06/23/24 22:05 Dose: 300 mg Gabapentin (Gabapentin 100 Mg Cap) 100 mg PO BID@0900,1400 [place] Stop: 07/22/24 08:59 Last Admin: 06/24/24 10:29 Dose: 100 mg Hydroxyzine HCl (Hydroxyzine Hcl 25 Mg Tab) 50 mg PO HSZ PRN PRN Reason: Insomnia Stop: 07/15/24 11:56 Last Admin: 06/23/24 23:29 Dose: 50 mg Hydroxyzine HCl (Hydroxyzine Hcl 25 Mg Tab) 25 mg PO Q4H PRN PRN Reason: Anxiety Stop: 07/15/24 11:56 Last Admin: 06/23/24 12:59 Dose: 25 mg Ibuprofen (Ibuprofen 200 Mg Tab) 400 mg PO DAILY PRN PRN Reason: Migraine Headache Stop: 07/21/24 15:26 Last Admin: 06/23/24 13:30 Dose: 400 mg Magnesium Hydroxide (Magnesium Hydroxide Susp 30 Ml Udc) 30 ml PO DAILY PRN PRN Reason: Constipation Stop: 07/15/24 11:56 Multivitamins (Multivitamin Tab) 1 tab PO QAM [place] Stop: 07/18/24 08:59 Last Admin: 06/24/24 10:29 Dose: 1 tab Olanzapine (Olanzapine Zydis 5 Mg Orally Dis. Tab) 5 mg PO Q8 PRN PRN Reason: agitation Stop: 07/15/24 19:51 Sodium Chloride (Sodium Chloride 0.65% Na Soln 45 Ml ([place])) 1 - 2 sprays NA PRN PRN PRN Reason: Nasal Dryness/Congestion Stop: 07/15/24 11:56 Last Admin: 06/18/24 21:23 Dose: 2 sprays Temazepam (Temazepam 15 Mg Capsule) 15 mg PO HSZ [place] Stop: 07/19/24 21:59 Last Admin: 12/18/24 22:04 Dose: 15 mg Mental Health & Subst Abuse Tx Psychiatrist [facility]rist[facility] [address] [facility] [id number] Psychiatrist's Date Of Appointment With Psychiatric Provider: Walk ins only Mondays- 8:30AM-4pm Time of Appointment with Psychiatrist: Same day intake to be assigned a psychiatrist and therapist Therapist Name of Therapist: [facility] - [address] [place] [place] [address] Therapist's Date of Therapist Appointment: Walk ins only Mondays- 8:30AM-4pm Time of Therapist Appointment: Same day intake to be assigned a psychiatrist and therapist Director Of Housing And Energy Services Name of Director Of Housing And Energy Services: [facility], Ana Paulaed immigration case manager- Lilian Palomino Phone Number for Director Of Housing And Energy Services: [phone] Date of Appointment with Director Of Housing And Energy Services: 07/02/24 Time of Appointment with Director Of Housing And Energy Services: 2PM Case Management Appointment Comment: Intake will be held at the office [address] [facility] [address] Post Discharge Appointments Primary Care Physician Name Of Family Doctor/PCP: Ramesh Fernández [address] [place] [address] [place] [address] Primary Care Other #1: Name of Aftercare Appointment: [facility] Phone Number of Aftercare Appointment: [phone] Aftercare Appointment Comment: Call to schedule intake, he can meet you at your home for the intake
[2024-06-24] MEDS: LORazepam 1 MG TAB PO PRN (15:01)
[2024-06-24] MEDS: clonazePAM 0.5 MG TAB PO SCH (21:49)
--- NOTE | 2024-06-25 10:59 | Psychiatric Progress Note ---
Date of Service June 25, 2024 Impression / Recommendations Impression JUSTIN WU is a 68-year-old woman who has been living with her friend Sara in [place], has a history of bipolar disorder, and was admitted on 06/15/24 16:45 on a 201 voluntary commitment for galen. Diagnostically consistent with acute galen due to bipolar affective disorder. She continues to have classic symptoms of galen including grandiosity, distractibility, increased psychomotor activity/goal driven activity, rapid and extremely hyperverbal speech, tangential thought process with flight of ideas, spending excess money and trying to put purchases she cannot afford on her credit cards (including calling to have her credit limit increased in attempt to buy >4k in silver off an overnight infomercial), befriending and joining the cellphone plan of a new acquaintance she made on the medical floor while at the vending machine, and poor sleep. A: Patient's galen is improving with more stable energy, mood. Concern for orthostatic hypotension and dizziness due to medications. Patient likely g rieving from recent of BF and brother now that she is in a more stable mood state. At times continues to be hyperverbal, intrusive, and has poor boundary control. Plan to discontinue Klonopin given long duration effect and concern for orthostatic hypotension in the morning and will switch to shorter acting benzodiazepine. Increase Depakote to 750 mg at bedtime. Depakote level in 2 to 3 days. MNPR-acute galen and disinhibited and easily influenced by peers, recent inappropriate boundaries with other patients Overall, I spent a total of 40 minutes on this case including meeting with the patient, reviewing the chart, nursing report, multidisciplinary team meeting, orders, and documentation. 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 Start Lorazepam 2mg HS. Increase Depakote DR to 750mg HS. Start Hydroxyzine 50mg HS. VPA level on Friday PM. 06/24/2024: D/c Temazepam. Start Clonazepam 1.5mg HS 06/23/2024: Increase Depakote DR to 500 mg at bedtime. 06/22/2024: Discontinue lithium. Start Depakote DR to 250 mg at bedtime. 06/21/2024: Start Gabapentin 100mg BID morning and afternoon. [place] level. 06/20/2024: Start Gabapentin 300mg HS. 06/19/2024: Discontinue clonazepam. Start temazepam 15 mg at bedtime. Increase lithium to 450 mg at bedtime. 06/18/2024: -Increase Klonopin to 2mg HS -Gabapentin 100mg BID prn for nerve pain 06/17/2024: -Continue abilify 20mg po -Start [place] carbonate 300mg qhs. Will repeat Li level, TSH, Cr after 1 week 06/16/2024: The patient was admitted to the [facility] ([facility]) on q15 min checks (behavioral with suicide precautions) for safety. The patient will participate in group, recreational, and milieu therapies and will be offered additional individual and family sessions as clinically appropriate. -Abilify HUITRON 400mg IM given on 06/16/2024, next dose will be due ~07/14/2023 -Continue abilify 20mg po HS for 14 days -Continue Klonopin 1mg HS -Discontinue lisinopril in anticipation of starting [place] -EKG to ensure cardiac stability before starting [place] given age Inventory Assets Strengths: supportive relationships, willing to get treatment Needs: safety and stabilization, medication adjustment, additional coping skills, increased outpatient services Suicide Risk Level Suicide Risk Level: Low (q15 min observation checks) (denies SI, consistently elevated mood over the past week, feels safe and feels able to ask for support if needed) Risk Factors Assessment Male: No : Yes Do You Have Access To A Gun?: No (had a pistol but this was taken by her partner's daughter after his ) Health Problems: No Mental Health Diagnoses: Yes Substance Use Disorders: No Previous Attempt: Yes Family History of Suicide: No Previous Psychiatric Hospitalization: Yes Hopelessness: No Protective Factors Assessment Uatsdin Beliefs: Yes Stable Relationships: Yes Interval History Identifying Information JUSTIN WU is a 68-year-old woman who has been living with her friend Sara in [place], has a history of bipolar disorder, and was admitted on 06/15/24 16:45 on a 201 voluntary commitment for galen. Chief Complaint Galen Review of Systems Sleep Information Total Hours of Sleep: 4.75 Sleep Comments: Up early but redirected back to bed Meal Information Percent Meal Consumed - Breakfast: 75 Percent Meal Consumed - Lunch: 100 Percent Meal Consumed - Dinner: 100 Nutrition Comment: Pt eats multiple times a day Subjective Subjective Patient was seen & assessed and interval progress reviewed with treatment team nursing and social work Has been attending some groups. Rates mood 8 out of 10. He slept 4.5 hours overnight and got a Vistaril as needed. She has been contacting homeless shelters for placement. Case management intake on the . On interview she reports fair energy and a "pretty good" mood. Says she feels tired. 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 She becomes tearful and reports being anxious and sad about the passing of Amol and her brother. She is upset that she did not see her brother before his passing and that they were divided over politics. She reports speaking to family members and this has been making her happy. Reports being dizzy when she is standing is a continued problem. Physical Exam Mental Examination Appearance: Unkempt Eye Contact: Direct Eye Contact Motor Behavior: Unremarkable Speech: Circumstantial Mood: Euthymic Affect: Calm Thought Process: Goal Oriented and Racing Insight: Poor (to limited) Judgement: Poor (to limited) Vital Signs (Past 24 Hours) Last Vital Signs Temp 36.0 C L 06/25/24 06:00 Pulse 78 06/25/24 06:00 Resp 15 06/25/24 06:00 BP 114/74 06/25/24 06:19 Pulse Ox 97 06/22/24 02:19 O2 Del Method Room Air 06/22/24 02:19 Results & Data ([facility]) Current Inpatient Medications Current Inpatient Medications: Current Inpatient Medications Acetaminophen (Acetaminophen 325 Mg Tab) 650 mg PO Q4H PRN PRN Reason: Headache or Minor Fever Stop: 07/15/24 11:56 Last Admin: 06/25/24 00:50 Dose: 650 mg Al Hydrox/Mg Hydrox/Simethicone (Aluminum/Magnesium Susp 30 Ml Udc) 30 ml PO Q4H PRN PRN Reason: GI Upset Stop: 07/15/24 11:56 Last Admin: 06/19/24 23:52 Dose: 30 ml Aripiprazole (Aripiprazole 10 Mg Tab) 20 mg PO HS [place] Stop: 12/25/24 21:59 Last Admin: 06/24/24 21:49 Dose: 20 mg Bismuth Subsalicylate (Bismuth Subsalicylate 262 Mg Chew) 2 tab PO Q30M PRN PRN Reason: Loose Stool/Diarrhea Stop: 07/15/24 11:56 Divalproex Sodium (Divalproex Delay Release 250 Mg [place]) 750 mg PO HS [facility] Stop: 07/25/24 21:59 Gabapentin (Gabapentin 300 Mg Cap) 300 mg PO HS [facility] Stop: 07/20/24 21:59 Last Admin: 06/24/24 21:48 Dose: 300 mg Gabapentin (Gabapentin 100 Mg Cap) 100 mg PO BID@0900,1400 [place] Stop: 07/22/24 08:59 Last Admin: 06/25/24 09:06 Dose: 100 mg Hydroxyzine HCl (Hydroxyzine Hcl 25 Mg Tab) 50 mg PO HSZ PRN PRN Reason: Insomnia Stop: 07/15/24 11:56 Last Admin: 06/25/24 00:50 Dose: 50 mg Hydroxyzine HCl (Hydroxyzine Hcl 25 Mg Tab) 25 mg PO Q4H PRN PRN Reason: Anxiety Stop: 07/15/24 11:56 Last Admin: 06/23/24 12:59 Dose: 25 mg Hydroxyzine HCl (Hydroxyzine Hcl 25 Mg Tab) 50 mg PO [facility] Stop: 07/25/24 21:59 Ibuprofen (Ibuprofen 200 Mg Tab) 400 mg PO DAILY PRN PRN Reason: Migraine Headache Stop: 07/21/24 15:26 Last Admin: 06/24/24 17:18 Dose: 400 mg Lorazepam (Lorazepam 1 Mg Tab) 1 mg PO Q6H PRN PRN Reason: Anxiety, insomnia Stop: 07/24/24 11:41 Last Admin: 06/24/24 15:01 Dose: 1 mg Lorazepam (Lorazepam 1 Mg Tab) 2 mg PO [facility] Stop: 07/25/24 21:59 Magnesium Hydroxide (Magnesium Hydroxide Susp 30 Ml Udc) 30 ml PO DAILY PRN PRN Reason: Constipation Stop: 07/15/24 11:56 Multivitamins (Multivitamin Tab) 1 tab PO QAM [place] Stop: 07/18/24 08:59 Last Admin: 06/25/24 09:06 Dose: 1 tab Olanzapine (Olanzapine Zydis 5 Mg Orally Dis. Tab) 5 mg PO Q8 PRN PRN Reason: agitation Stop: 07/15/24 19:51 Sodium Chloride (Sodium Chloride 0.65% Na Soln 45 Ml ([place])) 1 - 2 sprays NA PRN PRN PRN Reason: Nasal Dryness/Congestion Stop: 07/15/24 11:56 Last Admin: 06/18/24 21:23 Dose: 2 sprays Mental Health & Subst Abuse Tx Psychiatrist Name of Psychiatrist: [facility] - [address] [place] [address] [place] [address] Psychiatrist's Date Of Appointment With Psychiatric Provider: Walk ins only Mondays- 8:30AM-4pm Time of Appointment with Psychiatrist: Same day intake to be assigned a psychiatrist and therapist [facility]rap[facility] - [address] [place] [address] [place] [address] Therapist's Date of Therapist Appointment: Walk ins only Mondays- 8:30AM-4pm Time of Therapist Appointment: Same day intake to be assigned a psychiatrist and therapist [facility] Lil[facility] Palomino Phone Number for Compliance Spec: [phone] Date of Appointment with Compliance Spec: 07/02/24 Time of Appointment with Compliance Spec: 2PM Case Management Appointment Comment: Intake will be held at the office [address] [place] [id number] Post Discharge Appointments Primary Care Physician Name Of Family Doctor/PCP: Ramesh Fernández [address] [place] [address] , [place] [id number] Primary Care
[2024-06-25] MEDS: hydrOXYzine HCl 25 MG TAB PO SCH (23:01)
[2024-06-25] MEDS: DIVALPROEX DELAY RELEASE 250 MG TABEC PO SCH (23:01)
[2024-06-25] MEDS: LORazepam 1 MG TAB PO SCH (23:04)
--- NOTE | 2024-06-26 11:59 | Psychiatric Progress Note ---
Date of Service June 26, 2024 Impression / Recommendations Impression JUSTIN WU is a 68-year-old woman who has been living with her friend Sara in [place], has a history of bipolar disorder, and was admitted on 06/15/24 16:45 on a 201 voluntary commitment for galen. Diagnostically consistent with acute galen due to bipolar affective disorder. She continues to have classic symptoms of galen including grandiosity, distractibility, increased psychomotor activity/goal driven activity, rapid and extremely hyperverbal speech, tangential thought process with flight of ideas, spending excess money and trying to put purchases she cannot afford on her credit cards (including calling to have her credit limit increased in attempt to buy >4k in silver off an overnight infomercial), befriending and joining the cellphone plan of a new acquaintance she made on the medical floor while at the vending machine, and poor sleep. A: Patient presents shuffling gait with slowed movements and concern for orthostatic hypotension. Concern for med induced parkinsonism given recent Ab ilify long-acting and currently on 2 week overlap of oral Abilify. Plan to discontinue scheduled oral Abilify and adjust doses of medications which can increase fall risk. Patient continues to present a decreased need for sleep however presents more stable energy, mood, racing thoughts. Today she presents a more rational plan. MNPR-acute galen and disinhibited and easily influenced by peers, recent inappropriate boundaries with other patients Overall, I spent a total of 40 minutes on this case including meeting with the patient, reviewing the chart, nursing report, multidisciplinary team meeting, orders, and documentation. (1) Bipolar 1 disorder with moderate galen: (2) Insomnia due to mental disorder: (3) Drug-induced parkinsonism: (4) Orthostatic hypotension: Plan 06/26/2024: D/c Abilify 20mg HS. D/c Hydroxyzine 50mg HS. Decrease Gabapentin to 200mg HS. Start Fall precautions. Orthostatic vitals. 06/25/2024: D/c Clonazepam. Start Lorazepam 2mg HS. Increase Depakote DR to 750mg HS. Start Hydroxyzine 50mg HS. VPA level on Friday PM. 06/24/2024: D/c Temazepam. Start Clonazepam 1.5mg HS 06/23/2024: Increase Depakote DR to 500 mg at bedtime. 06/22/2024: Discontinue lithium. Start Depakote DR to 250 mg at bedtime. 06/21/2024: Start Gabapentin 100mg BID morning and afternoon. [place] level. 06/20/2024: Start Gabapentin 300mg HS. 06/19/2024: Discontinue clonazepam. Start temazepam 15 mg at bedtime. Increase lithium to 450 mg at bedtime. 06/18/2024: -Increase Klonopin to 2mg HS -Gabapentin 100mg BID prn for nerve pain 06/17/2024: -Continue abilify 20mg po -Start [place] carbonate 300mg qhs. Will repeat Li level, TSH, Cr after 1 week 06/16/2024: The patient was admitted to the [facility] ([facility] mental health unit) on q15 min checks (behavioral with suicide precautions) for safety. The patient will participate in group, recreational, and milieu therapies and will be offered additional individual and family sessions as clinically appropriate. -Abilify HUITRON 400mg IM given on 06/16/2024, next dose will be due ~07/14/2023 -Continue abilify 20mg po HS for 14 days -Continue Klonopin 1mg HS -Discontinue lisinopril in anticipation of starting [place] -EKG to ensure cardiac stability before starting [place] given age Inventory Assets Strengths: supportive relationships, willing to get treatment Needs: safety and stabilization, medication adjustment, additional coping skills, increased outpatient services Suicide Risk Level Suicide Risk Level: Low (q15 min observation checks) (denies SI, consistently elevated mood over the past week, feels safe and feels able to ask for support if needed) Risk Factors Assessment Male: No : Yes Do You Have Access To A Gun?: No (had a pistol but this was taken by her partner's daughter after his ) Health Problems: No Mental Health Diagnoses: Yes Substance Use Disorders: No Previous Attempt: Yes Family History of Suicide: No Previous Psychiatric Hospitalization: Yes Hopelessness: No Protective Factors Assessment Pentecostalism Beliefs: Yes Stable Relationships: Yes Interval History Identifying Information JUSTIN WU is a 68-year-old woman who has been living with her friend Sara in [place], has a history of bipolar disorder, and was admitted on 06/15/24 16:45 on a 201 voluntary commitment for galen. Chief Complaint Galen, orthostatic hypotension, parkinsonism Review of Systems Sleep Information Total Hours of Sleep: 4 Sleep Comments: Up early but redirected back to bed Meal Information Percent Meal Consumed - Breakfast: 100 Percent Meal Consumed - Lunch: 100 Percent Meal Consumed - Dinner: 80 Nutrition Comment: Pt eats multiple times a day Subjective Subjective Patient was seen & assessed and interval progress reviewed with treatment team nursing and social work Overnight the patient got 4 hours of sleep. She requested additional as needed Vistaril and Ativan. She presented a fall that happened at 7 30-7 40 5 AM after hitting the side of the table. Staff report patient continues to be intrusive and has trouble following direction. Concern for racing thoughts. Patient has been shuffling and movement and slowed. On interview the patient reports falling after hitting the side of the table. Complains of dizziness. Says that her mind is currently "on hold". Says energy is low and may improve through the day. She reports plans of possible assisted living upon discharge. Has been talking to her family members. She is not sure why she took Ativan this morning. Physical Exam Mental Examination Appearance: Unkempt Eye Contact: Direct Eye Contact Motor Behavior: Unremarkable and Slowed (shuffling gait) Speech: Normal Mood: Euthymic Affect: Calm Thought Process: Goal Oriented Insight: Poor (to limited) Judgement: Poor (to limited) Vital Signs (Past 24 Hours) Last Vital Signs Temp 36.2 C L 06/26/24 07:43 Pulse 100 H 06/26/24 07:43 Resp 18 06/26/24 07:43 BP 143/97 H 06/26/24 07:43 Pulse Ox 97 06/26/24 07:43 O2 Del Method Room Air 06/26/24 07:43 Results & Data ([facility]) Current Inpatient Medications Current Inpatient Medications: Current Inpatient Medications Acetaminophen (Acetaminophen 325 Mg Tab) 650 mg PO Q4H PRN PRN Reason: Headache or Minor Fever Stop: 07/15/24 11:56 Last Admin: 06/25/24 00:50 Dose: 650 mg Al Hydrox/Mg Hydrox/Simethicone (Aluminum/Magnesium Susp 30 Ml Udc) 30 ml PO Q4H PRN PRN Reason: GI Upset Stop: 07/15/24 11:56 Last Admin: 06/19/24 23:52 Dose: 30 ml Bismuth Subsalicylate (Bismuth Subsalicylate 262 Mg Chew) 2 tab PO Q30M PRN PRN Reason: Loose Stool/Diarrhea Stop: 07/15/24 11:56 Divalproex Sodium (Divalproex Delay Release 250 Mg Tabec) 750 mg PO HS [facility] Stop: 07/25/24 21:59 Last Admin: 06/25/24 23:01 Dose: 750 mg Gabapentin (Gabapentin 100 Mg Cap) 100 mg PO BID@0900,1400 [facility] Stop: 07/22/24 08:59 Last Admin: 06/26/24 09:51 Dose: Not Given Gabapentin (Gabapentin 100 Mg Cap) 200 mg PO HS [facility] Stop: 07/26/24 21:59 Hydroxyzine HCl (Hydroxyzine Hcl 25 Mg Tab) 50 mg PO HSZ PRN PRN Reason: Insomnia Stop: 07/15/24 11:56 Last Admin: 06/25/24 00:50 Dose: 50 mg Hydroxyzine HCl (Hydroxyzine Hcl 25 Mg Tab) 25 mg PO Q4H PRN PRN Reason: Anxiety Stop: 07/15/24 11:56 Last Admin: 06/23/24 12:59 Dose: 25 mg Ibuprofen (Ibuprofen 200 Mg Tab) 400 mg PO DAILY PRN PRN Reason: Migraine Headache Stop: 07/21/24 15:26 Last Admin: 06/26/24 04:24 Dose: 400 mg Lorazepam (Lorazepam 1 Mg Tab) 1 mg PO Q6H PRN PRN Reason: Anxiety, insomnia Stop: 07/24/24 11:41 Last Admin: 06/26/24 04:23 Dose: 1 mg Lorazepam (Lorazepam 1 Mg Tab) 2 mg PO [facility] Stop: 07/25/24 21:59 Last Admin: 06/25/24 23:04 Dose: 2 mg Magnesium Hydroxide (Magnesium Hydroxide Susp 30 Ml Udc) 30 ml PO DAILY PRN PRN Reason: Constipation Stop: 07/15/24 11:56 Multivitamins (Multivitamin Tab) 1 tab PO QAM [facility] Stop: 07/18/24 08:59 Last Admin: 06/26/24 09:50 Dose: 1 tab Olanzapine (Olanzapine Zydis 5 Mg Orally Dis. Tab) 5 mg PO Q8 PRN PRN Reason: agitation Stop: 07/15/24 19:51 Sodium Chloride (Sodium Chloride 0.65% Na Soln 45 Ml ([place])) 1 - 2 sprays NA PRN PRN PRN Reason: Nasal Dryness/Congestion Stop: 07/15/24 11:56 Last Admin: 06/18/24 21:23 Dose: 2 sprays Mental Health & Subst Abuse Tx Psychiatrist [facility] [address] [facility] [id number] Psychiatrist's Date Of Appointment With Psychiatric Provider: Walk ins only Mondays- 8:30AM-4pm Time of Appointment with Psychiatrist: Same day intake to be assigned a psychiatrist and therapist Therapist [facility] of Therapist[facility] [address] [facility] [id number] Therapist's Date of Therapist Appointment: Walk ins only Mondays- 8:30AM-4pm Time of Therapist Appointment: Same day intake to be assigned a psychiatrist and therapist [facility] Lilian Palomino Phone Number for Rug Hooker Hand: [phone] Date of Appointment with Rug Hooker Hand: 07/02/24 Time of Appointment with Rug Hooker Hand: 2PM Case Management Appointment Comment: Intake will be held at the office [address] [place] [id number] Post Discharge Appointments Primary Care Physician Name Of Family Doctor/PCP: Ramesh Fernández [address] [place] [address] [place] [address] Primary Care Other #1: Name of Aftercare Appointment: [facility] Phone Number of Aftercare Appointment: [phone] Aftercare Appointment Comment: Call to schedule intake, he can meet you at your home for the intake
[2024-06-26] MEDS: GABAPENTIN 100 MG CAP PO SCH (22:48)
--- NOTE | 2024-06-27 11:03 | Psychiatric Progress Note ---
Date of Service June 27, 2024 Impression / Recommendations Impression JUSTIN WU is a 68-year-old woman who has been living with her friend Sara in [place], has a history of bipolar disorder, and was admitted on 06/15/24 16:45 on a 201 voluntary commitment for galen. Diagnostically consistent with acute galen due to bipolar affective disorder. She continues to have classic symptoms of galen including grandiosity, distractibility, increased psychomotor activity/goal driven activity, rapid and extremely hyperverbal speech, tangential thought process with flight of ideas, spending excess money and trying to put purchases she cannot afford on her credit cards (including calling to have her credit limit increased in attempt to buy >4k in silver off an overnight infomercial), befriending and joining the cellphone plan of a new acquaintance she made on the medical floor while at the vending machine, and poor sleep. A: Patient is less hyperverbal today and at times circumstantial in speech. Parkinsonism symptoms of shuffling gate slowed movements improved after d/c of oral abilify; expecting further improvement in coming days. Orthostatic vitals unremarkable. Presented a good night of sleep and more stable energy, mood, racing thoughts. Today she presents a more rational plan. Plan for VPA, CBC, CMP blood work this evening. MNPR-acute galen and disinhibited and easily influenced by peers, recent inappropriate boundaries with other patients Overall, I spent a total of 40 minutes on this case including meeting with the patient, reviewing the chart, nursing report, multidisciplinary team meeting, orders, and documentation. (1) Bipolar 1 disorder with moderate galen: (2) Insomnia due to mental disorder: (3) Drug-induced parkinsonism: (4) Orthostatic hypotension: Plan 06/27/2024: PM Bloodwork: CBC, CMP, VPA level 06/26/2024: D/c Abilify 20mg HS. D/c Hydroxyzine 50mg HS. Decrease Gabapentin to 200mg HS. Start Fall precautions. Orthostatic vitals. 06/25/2024: D/c Clonazepam. Start Lorazepam 2mg HS. Increase Depakote DR to 750mg HS. Start Hydroxyzine 50mg HS. VPA level on Friday PM. 06/24/2024: D/c Temazepam. Start Clonazepam 1.5mg HS 06/23/2024: Increase Depakote DR to 500 mg at bedtime. 06/22/2024: Discontinue lithium. Start Depakote DR to 250 mg at bedtime. 06/21/2024: Start Gabapentin 100mg BID morning and afternoon. [place] level. 06/20/2024: Start Gabapentin 300mg HS. 06/19/2024: Discontinue clonazepam. Start temazepam 15 mg at bedtime. Increase lithium to 450 mg at bedtime. 06/18/2024: -Increase Klonopin to 2mg HS -Gabapentin 100mg BID prn for nerve pain 06/17/2024: -Continue abilify 20mg po -Start [place] carbonate 300mg qhs. Will repeat Li level, TSH, Cr after 1 week 06/16/2024: The patient was admitted to the [facility] ([facility]) on q15 min checks (behavioral with suicide precautions) for safety. The patient will participate in group, recreational, and milieu therapies and will be offered additional individual and family sessions as clinically appropriate. -Abilify HUITRON 400mg IM given on 06/16/2024, next dose will be due ~07/14/2023 -Continue abilify 20mg po HS for 14 days -Continue Klonopin 1mg HS -Discontinue lisinopril in anticipation of starting [place] -EKG to ensure cardiac stability before starting [place] given age Inventory Assets Strengths: supportive relationships, willing to get treatment Needs: safety and stabilization, medication adjustment, additional coping skills, increased outpatient services Suicide Risk Level Suicide Risk Level: Low (q15 min observation checks) (denies SI, consistently elevated mood over the past week, feels safe and feels able to ask for support if needed) Risk Factors Assessment Male: No : Yes Do You Have Access To A Gun?: No (had a pistol but this was taken by her partner's daughter after his ) Health Problems: No Mental Health Diagnoses: Yes Substance Use Disorders: No Previous Attempt: Yes Family History of Suicide: No Previous Psychiatric Hospitalization: Yes Hopelessness: No Protective Factors Assessment Yazdanism Beliefs: Yes Stable Relationships: Yes Interval History Identifying Information JUSTIN WU is a 68-year-old woman who has been living with her friend Sara in [place], has a history of bipolar disorder, and was admitted on 06/15/24 16:45 on a 201 voluntary commitment for galen. Chief Complaint Galen Review of Systems Sleep Information Total Hours of Sleep: 6 Sleep Comments: Routine sleep medication Meal Information Percent Meal Consumed - Breakfast: 100 Percent Meal Consumed - Lunch: 100 Percent Meal Consumed - Dinner: 50 Nutrition Comment: Pt ate lunch late in the afternoon and wasn't hungry for dinner. Subjective Subjective Patient was seen & assessed and interval progress reviewed with treatment team nursing and social work The patient slept 8.5 hrs, Feels rested. Rates "good" mood and feels "pretty energtic." Feels gabapentin helping with foot numbness. Reports her friend Sara will be visiting in [place]. Will bring some of her clothes. She reminisces about the past and talks about doing methamphetamine while on a road trip through [place] to stay up. Reports want to stay in the area but if no housing can be found can go back to [place]. Physical Exam Mental Examination Appearance: Unkempt Eye Contact: Direct Eye Contact Motor Behavior: Unremarkable and Slowed (shuffling gait) Speech: Normal Mood: Euthymic Affect: Calm Thought Process: Circumstantial Insight: Poor (to limited) Judgement: Poor (to limited) Vital Signs (Past 24 Hours) Last Vital Signs Temp 36.7 C 06/27/24 08:01 Pulse 82 06/27/24 08:01 Resp 18 06/27/24 08:01 BP 120/85 06/27/24 08:01 Pulse Ox 97 06/26/24 07:43 O2 Del Method Room Air 06/26/24 07:43 Results & Data ([facility]) Current Inpatient Medications Current Inpatient Medications: Current Inpatient Medications Acetaminophen (Acetaminophen 325 Mg Tab) 650 mg PO Q4H PRN PRN Reason: Headache or Minor Fever Stop: 07/15/24 11:56 Last Admin: 06/25/24 00:50 Dose: 650 mg Al Hydrox/Mg Hydrox/Simethicone (Aluminum/Magnesium Susp 30 Ml Udc) 30 ml PO Q4H PRN PRN Reason: GI Upset Stop: 07/15/24 11:56 Last Admin: 06/19/24 23:52 Dose: 30 ml Bismuth Subsalicylate (Bismuth Subsalicylate 262 Mg Chew) 2 tab PO Q30M PRN PRN Reason: Loose Stool/Diarrhea Stop: 07/15/24 11:56 Divalproex Sodium (Divalproex Delay Release 250 Mg Tabec) 750 mg PO HS [facility] Stop: 07/25/24 21:59 Last Admin: 06/26/24 22:48 Dose: 750 mg Gabapentin (Gabapentin 100 Mg Cap) 100 mg PO BID@0900,1400 [facility] Stop: 07/22/24 08:59 Last Admin: 06/27/24 08:47 Dose: 100 mg Gabapentin (Gabapentin 100 Mg Cap) 200 mg PO HS [place] Stop: 07/26/24 21:59 Last Admin: 06/26/24 22:48 Dose: 200 mg Hydroxyzine HCl (Hydroxyzine Hcl 25 Mg Tab) 50 mg PO HSZ PRN PRN Reason: Insomnia Stop: 07/15/24 11:56 Last Admin: 06/25/24 00:50 Dose: 50 mg Hydroxyzine HCl (Hydroxyzine Hcl 25 Mg Tab) 25 mg PO Q4H PRN PRN Reason: Anxiety Stop: 07/15/24 11:56 Last Admin: 06/23/24 12:59 Dose: 25 mg Ibuprofen (Ibuprofen 200 Mg Tab) 400 mg PO DAILY PRN PRN Reason: Migraine Headache Stop: 07/21/24 15:26 Last Admin: 06/26/24 04:24 Dose: 400 mg Lorazepam (Lorazepam 1 Mg Tab) 1 mg PO Q6H PRN PRN Reason: Anxiety, insomnia Stop: 07/24/24 11:41 Last Admin: 06/26/24 04:23 Dose: 1 mg Lorazepam (Lorazepam 1 Mg Tab) 2 mg PO HS [place] Stop: 07/25/24 21:59 Last Admin: 06/26/24 22:48 Dose: 2 mg Magnesium Hydroxide (Magnesium Hydroxide Susp 30 Ml Udc) 30 ml PO DAILY PRN PRN Reason: Constipation Stop: 07/15/24 11:56 Multivitamins (Multivitamin Tab) 1 tab PO QAM [place] Stop: 07/18/24 08:59 Last Admin: 06/27/24 08:47 Dose: 1 tab Olanzapine (Olanzapine Zydis 5 Mg Orally Dis. Tab) 5 mg PO Q8 PRN PRN Reason: agitation Stop: 07/15/24 19:51 Sodium Chloride (Sodium Chloride 0.65% Na Soln 45 Ml ([place])) 1 - 2 sprays NA PRN PRN PRN Reason: Nasal Dryness/Congestion Stop: 07/15/24 11:56 Last Admin: 06/18/24 21:23 Dose: 2 sprays Mental Health & Subst Abuse Tx Psychiatrist Name of Psychiatrist: [facility] [address] [place] [address] Psychiatrist's Date Of Appointment With Psychiatric Provider: Walk ins only Mondays- 8:30AM-4pm Time of Appointment with Psychiatrist: Same day intake to be assigned a psychiatrist and therapist Therapist Name of Therapist: [facility] [address] [place] [address] Therapist's Date of Therapist Appointment: Walk ins only Mondays- 8:30AM-4pm Time of Therapist Appointment: Same day intake to be assigned a psychiatrist and therapist [facility] Name of Carpenter [facility]olly: [facility], Blended director case- Lilian Palomino Phone Number for [facility] And D[facility]: [phone] Date of Appointment with Carpenter [facility]le And Dolly: 07/02/24 Time of Appointment with Carpenter [facility]le And Dolly: 2PM Case Management Appointment Comment: Intake will be held at the office [address] [place] [phone] Post Discharge Appointments Primary Care Physician Name Of Family Doctor/PCP: Ramesh Fernández [facility] , [place], [place] [address] Primary Care Other #1: Name of Aftercare Appointment: [facility] Phone Number of Aftercare Appointment: [phone] Aftercare Appointment Comment: Call to schedule intake, he can meet you at your home for the intake
[2024-06-27 17:26] LABS: Basophils # (auto) 0.04 K/uL (0.00-0.20); Basophils % (auto) 0.5 %; Eosinophils # (auto) 0.13 K/uL (0.00-0.50); Eosinophils % (auto) 1.5 %; Hematocrit (blood only) 37.7 % (37.0-47.0); Hemoglobin 12.4 g/dl (12.0-16.0); Immature Granulocytes # (auto) 0.05 K/uL (0.01-0.20); Immature Granulocytes % (auto) 0.6 %; Lymphocytes # (auto) 2.27 K/uL (1.20-3.40); Lymphocytes % (auto) 26.6 %; Mean Corpuscular Hgb Conc 32.9 g/dL (32.0-36.0); Mean Corpuscular Volume 91.1 fL (80.0-100.0); Monocytes # (auto) 0.49 K/uL (0.11-0.59); Monocytes % (auto) 5.7 %; Neutrophils # (auto) 5.55 K/uL (1.40-6.50); Neutrophils % (auto) 65.1 %; Platelet Count 264 K/uL (130-400); RDW Coefficient of Variation 14.5 % (11.5-14.5); RDW Standard Deviation 47.8 fL (36.4-46.3); Red Blood Count 4.14 M/uL (4.20-5.40); White Blood Count 8.53 K/ul (4.8-10.8)
[2024-06-27 17:44] LABS: Albumin Globulin Ratio 1.9 (0.9-2); Albumin Level 4.1 gm/dl (3.4-5.0); BUN Creatinine Ratio 33.7 (10-20); Bilirubin,Total 0.3 mg/dl (0.2-1.0); Calcium 9.1 mg/dl (8.6-10.3); Creatinine Clr Calc Pharmacy 46.9 ml/min; Globulin 2.2 gm/dl (2.5-4.0); Potassium 4.3 mmol/L (3.5-5.1); Total Protein 6.3 gm/dl (6.0-8.3)
[2024-06-28] MEDS ORDERED: LORazepam 0.5 MG TAB PO PRN (11:08)
--- NOTE | 2024-06-28 11:32 | Psychiatric Progress Note ---
Date of Service June 28, 2024 Impression / Recommendations Impression JUSTIN WU is a 68-year-old woman who has been living with her friend Sara in [place], has a history of bipolar disorder, and was admitted on 06/15/24 16:45 on a 201 voluntary commitment for galen. Diagnostically consistent with acute galen due to bipolar affective disorder. She presented with classic symptoms of galen including grandiosity, distractibility, increased psychomotor activity/goal driven activity, rapid and extremely hyperverbal speech, tangential thought process with flight of ideas, spending excess money and trying to put purchases she cannot afford on her credit cards (including calling to have her credit limit increased in attempt to buy >4k in silver off an overnight infomercial), befriending and joining the cellphone plan of a new acquaintance she made on the medical floor while at the vending machine, and poor sleep. A: Patient presents more stable mood, energy, and activity. Slept well overnight. Parkinsonism symptoms improving. Patient continues to be easily distractible and attention seeking. Concern for orthostatic hypotension given recent falls. Plan to d/c gabapentin and will trial low dose pregablin. Depakote to be switched to ER formulation for improved tolerability. VPA level of 43 and slightly subtherapeutic, will redraw labwork in 2 days. Plan to decrease nightly Lorazepam. CBC, CMP reviewed and unremarkable. Pt grieving over recent deaths of boyfriend and brother and indicative of normalizing mood state. MNPR-acute galen and disinhibited and easily influenced by peers, recent inappropriate boundaries with other patients Overall, I spent a total of 40 minutes on this case including meeting with the patient, reviewing the chart, nursing report, multidisciplinary team meeting, orders, and documentation. 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 Depakote switched to ER 750mg HS. D/c Gabapentin. Start Pregabalin 25mg BID. 06/27/2024: PM Bloodwork: CBC, CMP, VPA level 06/26/2024: D/c Abilify 20mg HS. D/c Hydroxyzine 50mg HS. Decrease Gabapentin to 200mg HS. Start Fall precautions. Orthostatic vitals. 06/25/2024: D/c Clonazepam. Start Lorazepam 2mg HS. Increase Depakote DR to 750mg HS. Start Hydroxyzine 50mg HS. VPA level on Friday PM. 06/24/2024: D/c Temazepam. Start Clonazepam 1.5mg HS 06/23/2024: Increase Depakote DR to 500 mg at bedtime. 06/22/2024: Discontinue lithium. Start Depakote DR to 250 mg at bedtime. 06/21/2024: Start Gabapentin 100mg BID morning and afternoon. [place] level. 06/20/2024: Start Gabapentin 300mg HS. 06/19/2024: Discontinue clonazepam. Start temazepam 15 mg at bedtime. Increase lithium to 450 mg at bedtime. 06/18/2024: -Increase Klonopin to 2mg HS -Gabapentin 100mg BID prn for nerve pain 06/17/2024: -Continue abilify 20mg po -Start [place] carbonate 300mg qhs. Will repeat Li level, TSH, Cr after 1 week 06/16/2024: The patient was admitted to the [facility] ([facility]) on q15 min checks (behavioral with suicide precautions) for safety. The patient will participate in group, recreational, and milieu therapies and will be offered additional individual and family sessions as clinically appropriate. -Abilify HUITRON 400mg IM given on 06/16/2024, next dose will be due ~07/14/2023 -Continue abilify 20mg po HS for 14 days -Continue Klonopin 1mg HS -Discontinue lisinopril in anticipation of starting [place] -EKG to ensure cardiac stability before starting [place] given age Inventory Assets Strengths: supportive relationships, willing to get treatment Needs: safety and stabilization, medication adjustment, additional coping skills, increased outpatient services Suicide Risk Level Suicide Risk Level: Low (q15 min observation checks) (denies SI, consistently elevated mood over the past week, feels safe and feels able to ask for support if needed) Risk Factors Assessment Male: No : Yes Do You Have Access To A Gun?: No (had a pistol but this was taken by her partner's daughter after his ) Health Problems: No Mental Health Diagnoses: Yes Substance Use Disorders: No Previous Attempt: Yes Family History of Suicide: No Previous Psychiatric Hospitalization: Yes Hopelessness: No Protective Factors Assessment Yarsani Beliefs: Yes Stable Relationships: Yes Interval History Identifying Information JUSTIN WU is a 68-year-old woman who has been living with her friend Sara in [place], has a history of bipolar disorder, and was admitted on 06/15/24 16:45 on a 201 voluntary commitment for galen. Chief Complaint "Sad I won't be spending jocelyn with Amol this year" Review of Systems Sleep Information Total Hours of Sleep: 8 Sleep Comments: Routine sleep medication Meal Information Percent Meal Consumed - Breakfast: 100 Percent Meal Consumed - Lunch: 100 Percent Meal Consumed - Dinner: 100 Nutrition Comment: Pt ate lunch late in the afternoon and wasn't hungry for dinner. Subjective Subjective Patient was seen & assessed and interval progress reviewed with treatment team nursing and social work The patient reports "ok" mood. Slept 8 hrs and feels rested. Feels tired this AM. C/o dizziness last night and feel once to her knees and caught herself. When geting up from toilet in early AM she got up quickly and fell. Reports feeling less dizzy now. Through the interview, pt is often distracted and has difficulty sitting still and keeps getting up. Reports her walking and gait have improved. Rates energy as "good". Denies muscle rigidity or locking of body/limbs/face. Later in the morning, pt becomes tearful and reports being sad she will be spending Jocelyn without Amol this year and feels guilty over not talking to her brother over "silly politics." Reassured and encouraged her to express herself and her emotions. Denies SI. Physical Exam Mental Examination Appearance: Unkempt Eye Contact: Direct Eye Contact Motor Behavior: Unremarkable and Slowed (shuffling gait) Speech: Normal Mood: Euthymic and Sad (at times) Affect: Calm Thought Process: Circumstantial Insight: Poor (to limited) Judgement: Poor (to limited) Vital Signs (Past 24 Hours) Last Vital Signs Temp 36.6 C 06/28/24 08:20 Pulse 82 06/28/24 08:20 Resp 18 06/27/24 08:01 BP 130/82 06/28/24 08:20 Pulse Ox 97 06/26/24 07:43 O2 Del Method Room Air 06/26/24 07:43 Results & Data ([facility]) Laboratory Results Laboratory Results - last 24 hr 06/27/24 17:01 WBC 8.53 RBC 4.14 L Hgb 12.4 Hct 37.7 MCV 91.1 MCH 30.0 MCHC 32.9 RDW Std Deviation 47.8 H RDW Coeff of [place] 14.5 Plt Count 264 MPV 9.0 L Immature Gran % (Auto) 0.6 Neut % (Auto) 65.1 Lymph % (Auto) 26.6 [place] % (Auto) 5.7 Eos % (Auto) 1.5 Baso % (Auto) 0.5 Neut # (Auto) 5.55 Lymph # (Auto) 2.27 [place] # (Auto) 0.49 Eos # (Auto) 0.13 Baso # (Auto) 0.04 Immature Gran # (Auto) 0.05 Sodium 139 Potassium 4.3 Chloride 104 Carbon Dioxide 28 Anion Gap 7 BUN 33 H Creatinine 0.98 Est Cr Clr Drug Dosing 46.9 eGFR 62.48 BUN/Creatinine Ratio 33.7 H Glucose 79 Calcium 9.1 Total Bilirubin 0.3 AST 23 ALT 18 Alkaline Phosphatase 46 Total Protein 6.3 Albumin 4.1 Globulin 2.2 L Albumin/Globulin Ratio 1.9 Valproic Acid 43 L Current Inpatient Medications Current Inpatient Medications: Current Inpatient Medications Acetaminophen (Acetaminophen 325 Mg Tab) 650 mg PO Q4H PRN PRN Reason: Headache or Minor Fever Stop: 07/15/24 11:56 Last Admin: 06/25/24 00:50 Dose: 650 mg Al Hydrox/Mg Hydrox/Simethicone (Aluminum/Magnesium Susp 30 Ml Udc) 30 ml PO Q4H PRN PRN Reason: GI Upset Stop: 07/15/24 11:56 Last Admin: 06/19/24 23:52 Dose: 30 ml Bismuth Subsalicylate (Bismuth Subsalicylate 262 Mg Chew) 2 tab PO Q30M PRN PRN Reason: Loose Stool/Diarrhea Stop: 07/15/24 11:56 Divalproex Sodium (Divalproex Extended Release 250 Mg Tabcr) 750 mg PO HS [place] Stop: 07/28/24 21:59 Hydroxyzine HCl (Hydroxyzine Hcl 25 Mg Tab) 50 mg PO HSZ PRN PRN Reason: Insomnia Stop: 07/15/24 11:56 Last Admin: 06/25/24 00:50 Dose: 50 mg Hydroxyzine HCl (Hydroxyzine Hcl 25 Mg Tab) 25 mg PO Q4H PRN PRN Reason: Anxiety Stop: 07/15/24 11:56 Last Admin: 06/23/24 12:59 Dose: 25 mg Ibuprofen (Ibuprofen 200 Mg Tab) 400 mg PO DAILY PRN PRN Reason: Migraine Headache Stop: 07/21/24 15:26 Last Admin: 06/26/24 04:24 Dose: 400 mg Lorazepam (Lorazepam 0.5 Mg Tab) 1.5 mg PO HS [place] Stop: 07/28/24 21:59 Lorazepam (Lorazepam 0.5 Mg Tab) 0.5 mg PO Q6H PRN PRN Reason: Anxiety, insomnia Stop: 07/24/24 11:41 Magnesium Hydroxide (Magnesium Hydroxide Susp 30 Ml Udc) 30 ml PO DAILY PRN PRN Reason: Constipation Stop: 07/15/24 11:56 Multivitamins (Multivitamin Tab) 1 tab PO QAM [place] Stop: 07/18/24 08:59 Last Admin: 06/28/24 08:08 Dose: 1 tab Olanzapine (Olanzapine Zydis 5 Mg Orally Dis. Tab) 5 mg PO Q8 PRN PRN Reason: agitation Stop: 07/15/24 19:51 Pregabalin (Pregabalin 25 Mg Cap) 25 mg PO BID [place] Stop: 07/28/24 11:09 Sodium Chloride (Sodium Chloride 0.65% Na Soln 45 Ml ([place])) 1 - 2 sprays NA PRN PRN PRN Reason: Nasal Dryness/Congestion Stop: 07/15/24 11:56 Last Admin: 06/18/24 21:23 Dose: 2 sprays Mental Health & Subst Abuse Tx Psychiatrist Name of Psychiatrist: Aleksandr Baugh - [address] [place] [address] [place] [id number] Psychiatrist's Date Of Appointment With Psychiatric Provider: Walk ins only Mondays- 8:30AM-4pm Time of Appointment with Psychiatrist: Same day intake to be assigned a psychiatrist and therapist Therapist Name of Therapist: [facility] - [address] [place] [address] [place] [id number] Therapist's Date of Therapist Appointment: Walk ins only Mondays- 8:30AM-4pm Time of Therapist Appointment: Same day intake to be assigned a psychiatrist and therapist Building Supplies Salesperson Retail Name of Building Supplies Salesperson Retail: [facility] Lucina, Ana Paulaed telephonic case manager- Lilian Palomino Phone Number for Building Supplies Salesperson Retail: [phone] Date of Appointment with Building Supplies Salesperson Retail: 07/02/24 Time of Appointment with Building Supplies Salesperson Retail: 2PM Case Management Appointment Comment: Intake will be held at the office [address] [facility] [place] [address] Post Discharge Appointments Primary Care Physician Name Of Family Doctor/PCP: Ramesh Fernández [address] [place] [address] , [place] [id number] Primary Care Date of Future Appointment with PCP: 07/09/2024 Time of Appointment with PCP: 11:15 AM Other #1: Name of Aftercare Appointment: [facility] Phone Number of Aftercare Appointment: [phone] Aftercare Appointment Comment: Call to schedule intake, he can meet you at your home for the intake
[2024-06-28] MEDS: PREGABALIN 25 MG CAP PO SCH (14:16)
[2024-06-28] MEDS: LORazepam 0.5 MG TAB PO SCH (21:18)
[2024-06-28] MEDS: DIVALPROEX EXTENDED RELEASE 250 MG TABCR PO SCH (21:18)
--- NOTE | 2024-06-29 14:56 | Psychiatric Progress Note ---
Date of Service June 29, 2024 Impression / Recommendations Impression JUSTIN WU is a 68-year-old woman who has been living with her friend Sara in [place], has a history of bipolar disorder, and was admitted on 06/15/24 16:45 on a 201 voluntary commitment for galen. Diagnostically consistent with acute galen due to bipolar affective disorder. She presented with classic symptoms of galen including grandiosity, distractibility, increased psychomotor activity/goal driven activity, rapid and extremely hyperverbal speech, tangential thought process with flight of ideas, spending excess money and trying to put purchases she cannot afford on her credit cards (including calling to have her credit limit increased in attempt to buy >4k in silver off an overnight infomercial), befriending and joining the cellphone plan of a new acquaintance she made on the medical floor while at the vending machine, and poor sleep. A: Patient presents more stable mood, energy, and activity. Slightly disrupted sleep overnight. Parkinsonism symptoms improving. Pt less distractible today. Less orthostatic hypotension concerns after med changes. Plan for VPA blood level tomorrow PM. MNPR-acute galen and disinhibited and easily influenced by peers, recent inappropriate boundaries with other patients Overall, I spent a total of 40 minutes on this case including meeting with the patient, reviewing the chart, nursing report, multidisciplinary team meeting, orders, and documentation. (1) Bipolar 1 disorder with moderate galen: (2) Insomnia due to mental disorder: (3) Drug-induced parkinsonism: (4) Orthostatic hypotension: (5) Paresthesia of both lower extremities: (6) Grief: Plan 06/29/2024: Continue medications and treatment plan. VPA blood level tomorrow PM. 06/28/2024: Lorazepam dec to 1.5mg HS. Depakote switched to ER 750mg HS. D/c Gabapentin. Start Pregabalin 25mg BID. 06/27/2024: PM Bloodwork: CBC, CMP, VPA level 06/26/2024: D/c Abilify 20mg HS. D/c Hydroxyzine 50mg HS. Decrease Gabapentin to 200mg HS. Start Fall precautions. Orthostatic vitals. 06/25/2024: D/c Clonazepam. Start Lorazepam 2mg HS. Increase Depakote DR to 750mg HS. Start Hydroxyzine 50mg HS. VPA level on Friday PM. 06/24/2024: D/c Temazepam. Start Clonazepam 1.5mg HS 06/23/2024: Increase Depakote DR to 500 mg at bedtime. 06/22/2024: Discontinue lithium. Start Depakote DR to 250 mg at bedtime. 06/21/2024: Start Gabapentin 100mg BID morning and afternoon. [place] level. 06/20/2024: Start Gabapentin 300mg HS. 06/19/2024: Discontinue clonazepam. Start temazepam 15 mg at bedtime. Increase lithium to 450 mg at bedtime. 06/18/2024: -Increase Klonopin to 2mg HS -Gabapentin 100mg BID prn for nerve pain 06/17/2024: -Continue abilify 20mg po -Start [place] carbonate 300mg qhs. Will repeat Li level, TSH, Cr after 1 week 06/16/2024: The patient was admitted to the [facility] ([facility] health unit) on q15 min checks (behavioral with suicide precautions) for safety. The patient will participate in group, recreational, and milieu therapies and will be offered additional individual and family sessions as clinically appropriate. -Abilify HUITRON 400mg IM given on 06/16/2024, next dose will be due ~07/14/2023 -Continue abilify 20mg po HS for 14 days -Continue Klonopin 1mg HS -Discontinue lisinopril in anticipation of starting [place] -EKG to ensure cardiac stability before starting [place] given age Inventory Assets Strengths: supportive relationships, willing to get treatment Needs: safety and stabilization, medication adjustment, additional coping skills, increased outpatient services Suicide Risk Level Suicide Risk Level: Low (q15 min observation checks) (denies SI, consistently elevated mood over the past week, feels safe and feels able to ask for support if needed) Risk Factors Assessment Male: No : Yes Do You Have Access To A Gun?: No (had a pistol but this was taken by her partner's daughter after his ) Health Problems: No Mental Health Diagnoses: Yes Substance Use Disorders: No Previous Attempt: Yes Family History of Suicide: No Previous Psychiatric Hospitalization: Yes Hopelessness: No Protective Factors Assessment Denominational Beliefs: Yes Stable Relationships: Yes Interval History Identifying Information JUSTIN WU is a 68-year-old woman who has been living with her friend Sara in [place], has a history of bipolar disorder, and was admitted on 06/15/24 16:45 on a 201 voluntary commitment for galen. Chief Complaint Galen Review of Systems Sleep Information Total Hours of Sleep: 5 Sleep Comments: Routine sleep medication Meal Information Percent Meal Consumed - Breakfast: 100 Percent Meal Consumed - Lunch: 100 Percent Meal Consumed - Dinner: 75 Nutrition Comment: Pt ate lunch late in the afternoon and wasn't hungry for dinner. Subjective Subjective Patient was seen & assessed and interval progress reviewed with treatment team nursing and social work Patient slept 5 hours. Woke up at 3 AM and got a Vistaril as needed. BP was elevated this morning. On interview patient reports having a good mood. Feels rested and slept well. Reports ambulation has improved with improved range of motion and movement. Has been feeling less dizzy over the days. Reports her numbness and tingling in her feet are controlled. Says she feels less dizzy when standing up suddenly. He is grieving over the loss of her brother because they usually spend Jocelyn together and she becomes tearful. At times during the interview she becomes circumstantial. She spoke to Sara yesterday and reports that her friend is upset about her ruining her bedsheets. Physical Exam Mental Examination Appearance: Unkempt Eye Contact: Direct Eye Contact Motor Behavior: Unremarkable and Slowed (shuffling gait) Speech: Normal Mood: Euthymic and Sad (at times) Affect: Calm Thought Process: Circumstantial Insight: Poor (to limited) Judgement: Poor (to limited) Vital Signs (Past 24 Hours) Last Vital Signs Temp 36.1 C L 06/29/24 03:23 Pulse 85 06/29/24 03:24 Resp 16 06/29/24 03:23 BP 154/106 H 06/29/24 03:24 Pulse Ox 98 06/29/24 03:23 O2 Del Method Room Air 06/29/24 03:23 Results & Data ([facility]) Current Inpatient Medications Current Inpatient Medications: Current Inpatient Medications Acetaminophen (Acetaminophen 325 Mg Tab) 650 mg PO Q4H PRN PRN Reason: Headache or Minor Fever Stop: 07/15/24 11:56 Last Admin: 06/29/24 03:16 Dose: 650 mg Al Hydrox/Mg Hydrox/Simethicone (Aluminum/Magnesium Susp 30 Ml Udc) 30 ml PO Q4H PRN PRN Reason: GI Upset Stop: 07/15/24 11:56 Last Admin: 06/19/24 23:52 Dose: 30 ml Bismuth Subsalicylate (Bismuth Subsalicylate 262 Mg Chew) 2 tab PO Q30M PRN PRN Reason: Loose Stool/Diarrhea Stop: 07/15/24 11:56 Divalproex Sodium (Divalproex Extended Release 250 Mg Tabcr) 750 mg PO HS [facility] Stop: 07/28/24 21:59 Last Admin: 06/28/24 21:18 Dose: 750 mg Hydroxyzine HCl (Hydroxyzine Hcl 25 Mg Tab) 50 mg PO HSZ PRN PRN Reason: Insomnia Stop: 07/15/24 11:56 Last Admin: 06/29/24 03:03 Dose: 50 mg Hydroxyzine HCl (Hydroxyzine Hcl 25 Mg Tab) 25 mg PO Q4H PRN PRN Reason: Anxiety Stop: 07/15/24 11:56 Last Admin: 06/23/24 12:59 Dose: 25 mg Ibuprofen (Ibuprofen 200 Mg Tab) 400 mg PO DAILY PRN PRN Reason: Migraine Headache Stop: 07/21/24 15:26 Last Admin: 06/28/24 20:34 Dose: 400 mg Lorazepam (Lorazepam 0.5 Mg Tab) 1.5 mg PO HS [facility] Stop: 07/28/24 21:59 Last Admin: 06/28/24 21:18 Dose: 1.5 mg Lorazepam (Lorazepam 0.5 Mg Tab) 0.5 mg PO Q6H PRN PRN Reason: Anxiety, insomnia Stop: 07/24/24 11:41 Magnesium Hydroxide (Magnesium Hydroxide Susp 30 Ml Udc) 30 ml PO DAILY PRN PRN Reason: Constipation Stop: 07/15/24 11:56 Multivitamins (Multivitamin Tab) 1 tab PO QAM [facility] Stop: 07/18/24 08:59 Last Admin: 06/29/24 08:55 Dose: 1 tab Olanzapine (Olanzapine Zydis 5 Mg Orally Dis. Tab) 5 mg PO Q8 PRN PRN Reason: agitation Stop: 07/15/24 19:51 Pregabalin (Pregabalin 25 Mg Cap) 25 mg PO BID [facility] Stop: 07/28/24 11:09 Last Admin: 06/29/24 08:55 Dose: 25 mg Sodium Chloride (Sodium Chloride 0.65% Na Soln 45 Ml ([place])) 1 - 2 sprays NA PRN PRN PRN Reason: Nasal Dryness/Congestion Stop: 07/15/24 11:56 Last Admin: 06/18/24 21:23 Dose: 2 sprays Mental Health & Subst Abuse Tx Psychiatrist Name of Psychiatrist: [facility] - [address] [place], [place] [address] [place] [address] Psychiatrist's Date Of Appointment With Psychiatric Provider: Walk ins only Mondays- 8:30AM-4pm Time of Appointment with Psychiatrist: Same day intake to be assigned a psychiatrist and therapist within a week Psychiatric Appointment Comment: Providers can administer HUITRON Therapist Name of Therapist: [facility] - [address] [place] [address] [place] [address] Therapist's Date of Therapist Appointment: Walk ins only Mondays- 8:30AM-4pm Time of Therapist Appointment: Same day intake to be assigned a psychiatrist and therapist within a week Microwave Remote Sensing Scientist Name of Microwave Remote Sensing Scientist: [facility] casework supervisor- Lilian Palomino Phone Number for Microwave Remote Sensing Scientist: [phone] Date of Appointment with Microwave Remote Sensing Scientist: 07/02/24 Time of Appointment with Microwave Remote Sensing Scientist: 2PM Case Management Appointment Comment: Intake will be held at the office [address] [place] [address] Post Discharge Appointments Primary Care Physician Name Of Family Doctor/PCP: Ramesh Fernández [address] [place] [address] Primary Care Date of Future Appointment with PCP: 07/09/2024 Time of Appointment with PCP: 11:15 AM Other #1: Name of Aftercare Appointment: [facility] Phone Number of Aftercare Appointment: [phone] Aftercare Appointment Comment: Call to schedule intake, he can meet you at your home for the intake Contact Information Discharge Discharge Address: [address] [place], [place] [id number] Contact Information Comment: [facility] Custodial
[2024-06-30 06:16] VITALS: O2SAT 94
--- NOTE | 2024-06-30 13:41 | Psychiatric Progress Note ---
Date of Service June 30, 2024 Impression / Recommendations Impression JUSTIN WU is a 68-year-old woman who has been living with her friend Sara in [place], has a history of bipolar disorder, and was admitted on 06/15/24 16:45 on a 201 voluntary commitment for galen. Diagnostically consistent with acute galen due to bipolar affective disorder. She presented with classic symptoms of galen including grandiosity, distractibility, increased psychomotor activity/goal driven activity, rapid and extremely hyperverbal speech, tangential thought process with flight of ideas, spending excess money and trying to put purchases she cannot afford on her credit cards (including calling to have her credit limit increased in attempt to buy >4k in silver off an overnight infomercial), befriending and joining the cellphone plan of a new acquaintance she made on the medical floor while at the vending machine, and poor sleep. A: Patient presents more stable mood, energy, and activity. Improved sleep overnight with sleep aid. EPS and orthostatic problems appear resolved. Pt less distractible today. Plan for VPA blood level today PM. MNPR-acute galen and disinhibited and easily influenced by peers, recent inappropriate boundaries with other patients Overall, I spent a total of 40 minutes on this case including meeting with the patient, reviewing the chart, nursing report, multidisciplinary team meeting, orders, and documentation. (1) Bipolar 1 disorder with moderate galen: (2) Insomnia due to mental disorder: (3) Paresthesia of both lower extremities: (4) Grief: Plan 06/30/24: Continue medications and treatment plan. VPA blood level today PM. 06/29/2024: Continue medications and treatment plan. 06/28/2024: Lorazepam dec to 1.5mg HS. Depakote switched to ER 750mg HS. D/c Gabapentin. Start Pregabalin 25mg BID. 06/27/2024: PM Bloodwork: CBC, CMP, VPA level 06/26/2024: D/c Abilify 20mg HS. D/c Hydroxyzine 50mg HS. Decrease Gabapentin to 200mg HS. Start Fall precautions. Orthostatic vitals. 06/25/2024: D/c Clonazepam. Start Lorazepam 2mg HS. Increase Depakote DR to 750mg HS. Start Hydroxyzine 50mg HS. VPA level on Friday PM. 06/24/2024: D/c Temazepam. Start Clonazepam 1.5mg HS 06/23/2024: Increase Depakote DR to 500 mg at bedtime. 06/22/2024: Discontinue lithium. Start Depakote DR to 250 mg at bedtime. 06/21/2024: Start Gabapentin 100mg BID morning and afternoon. Gilcrest level. 06/20/2024: Start Gabapentin 300mg HS. 06/19/2024: Discontinue clonazepam. Start temazepam 15 mg at bedtime. Increase lithium to 450 mg at bedtime. 06/18/2024: -Increase Klonopin to 2mg HS -Gabapentin 100mg BID prn for nerve pain 06/17/2024: -Continue abilify 20mg po -Start Gilcrest carbonate 300mg qhs. Will repeat Li level, TSH, Cr after 1 week 06/16/2024: The patient was admitted to the [facility]) on q15 min checks (behavioral with suicide precautions) for safety. The patient will participate in group, recreational, and milieu therapies and will be offered additional individual and family sessions as clinically appropriate. -Abilify HUITRON 400mg IM given on 06/16/2024, next dose will be due ~07/14/2023 -Continue abilify 20mg po HS for 14 days -Continue Klonopin 1mg HS -Discontinue lisinopril in anticipation of starting Gilcrest -EKG to ensure cardiac stability before starting Gilcrest given age Inventory Assets Strengths: supportive relationships, willing to get treatment Needs: safety and stabilization, medication adjustment, additional coping skills, increased outpatient services Suicide Risk Level Suicide Risk Level: Low (q15 min observation checks) (denies SI, consistently elevated mood over the past week, feels safe and feels able to ask for support if needed) Risk Factors Assessment Male: No : Yes Do You Have Access To A Gun?: No (had a pistol but this was taken by her partner's daughter after his ) Health Problems: No Mental Health Diagnoses: Yes Substance Use Disorders: No Previous Attempt: Yes Family History of Suicide: No Previous Psychiatric Hospitalization: Yes Hopelessness: No Protective Factors Assessment Hoahaoism Beliefs: Yes Stable Relationships: Yes Interval History Identifying Information JUSTIN WU is a 68-year-old woman who has been living with her friend Sara in [place], has a history of bipolar disorder, and was admitted on 06/15/24 16:45 on a 201 voluntary commitment for galen. Chief Complaint Galen Review of Systems Sleep Information Total Hours of Sleep: 5.25 Sleep Comments: Routine sleep medication Meal Information Percent Meal Consumed - Breakfast: 100 Percent Meal Consumed - Lunch: 100 Percent Meal Consumed - Dinner: 85 Nutrition Comment: Pt ate lunch late in the afternoon and wasn't hungry for dinner. Subjective Subjective Patient was seen & assessed and interval progress reviewed with treatment team nursing and social work Patient slept 5.25 hours. Rates his mood as "good". On interview patient is initially tearful and reports that she is not "used to things going her way." Reports worries about the lawsuit pending. Reports sleeping well last night and feels rested. Movements observed and appear to be in full range. Denies numbness or tingling in her feet. Denies dizziness or orthostatic symptoms when she stands. Feels she is close to her baseline. Denies SI or HI. No other concerns reported. Nervous about the future and what she will do. Physical Exam Mental Examination Appearance: Well Groomed Eye Contact: Direct Eye Contact Motor Behavior: Unremarkable Speech: Normal Mood: Euthymic and Sad (at times) Affect: Calm Thought Process: Circumstantial Thought Content: Intact and Linear Hallucinations: None Insight: Fair (to limited) Judgement: Poor (to limited) Vital Signs (Past 24 Hours) Last Vital Signs Temp 35.9 C L 06/30/24 06:00 Pulse 91 H 06/30/24 06:13 Resp 18 06/30/24 06:00 BP 115/81 06/30/24 06:13 Pulse Ox 94 06/30/24 06:00 O2 Del Method Room Air 06/30/24 06:00 Results & Data ([facility]) Current Inpatient Medications Current Inpatient Medications: Current Inpatient Medications Acetaminophen (Acetaminophen 325 Mg Tab) 650 mg PO Q4H PRN PRN Reason: Headache or Minor Fever Stop: 07/15/24 11:56 Last Admin: 06/29/24 03:16 Dose: 650 mg Al Hydrox/Mg Hydrox/Simethicone (Aluminum/Magnesium Susp 30 Ml Udc) 30 ml PO Q4H PRN PRN Reason: GI Upset Stop: 07/15/24 11:56 Last Admin: 06/19/24 23:52 Dose: 30 ml Bismuth Subsalicylate (Bismuth Subsalicylate 262 Mg Chew) 2 tab PO Q30M PRN PRN Reason: Loose Stool/Diarrhea Stop: 07/15/24 11:56 Divalproex Sodium (Divalproex Extended Release 250 Mg Tabcr) 750 mg PO HS [place] Stop: 07/28/24 21:59 Last Admin: 06/29/24 22:28 Dose: 750 mg Hydroxyzine HCl (Hydroxyzine Hcl 25 Mg Tab) 50 mg PO HSZ PRN PRN Reason: Insomnia Stop: 07/15/24 11:56 Last Admin: 06/29/24 03:03 Dose: 50 mg Hydroxyzine HCl (Hydroxyzine Hcl 25 Mg Tab) 25 mg PO Q4H PRN PRN Reason: Anxiety Stop: 07/15/24 11:56 Last Admin: 06/23/24 12:59 Dose: 25 mg Ibuprofen (Ibuprofen 200 Mg Tab) 400 mg PO DAILY PRN PRN Reason: Migraine Headache Stop: 07/21/24 15:26 Last Admin: 06/28/24 20:34 Dose: 400 mg Lorazepam (Lorazepam 0.5 Mg Tab) 1.5 mg PO HS [facility] Stop: 07/28/24 21:59 Last Admin: 06/29/24 22:28 Dose: 1.5 mg Lorazepam (Lorazepam 0.5 Mg Tab) 0.5 mg PO Q6H PRN PRN Reason: Anxiety, insomnia Stop: 07/24/24 11:41 Magnesium Hydroxide (Magnesium Hydroxide Susp 30 Ml Udc) 30 ml PO DAILY PRN PRN Reason: Constipation Stop: 07/15/24 11:56 Multivitamins (Multivitamin Tab) 1 tab PO QAM [place] Stop: 07/18/24 08:59 Last Admin: 06/30/24 09:04 Dose: 1 tab Olanzapine (Olanzapine Zydis 5 Mg Orally Dis. Tab) 5 mg PO Q8 PRN PRN Reason: agitation Stop: 07/15/24 19:51 Pregabalin (Pregabalin 25 Mg Cap) 25 mg PO BID [place] Stop: 07/28/24 11:09 Last Admin: 06/30/24 09:05 Dose: 25 mg Sodium Chloride (Sodium Chloride 0.65% Na Soln 45 Ml ([place])) 1 - 2 sprays NA PRN PRN PRN Reason: Nasal Dryness/Congestion Stop: 07/15/24 11:56 Last Admin: 06/18/24 21:23 Dose: 2 sprays Mental Health & Subst Abuse Tx Psychiatrist Name of Psychiatrist: [facility] - [address] [facility] [place] [address] Psychiatrist's Date Of Appointment With Psychiatric Provider: Walk ins only Mondays- 8:30AM-4pm Time of Appointment with Psychiatrist: Same day intake to be assigned a psychiatrist and therapist within a week Psychiatric Appointment Comment: Providers can administer HUITRON Therapist Name of Therapist: [facility] - [address] [place] [address] Therapist's Date of Therapist Appointment: Walk ins only Mondays- 8:30AM-4pm Time of Therapist Appointment: Same day intake to be assigned a psychiatrist and therapist within a week Marketing Operations Coordinator Name of Marketing Operations Coordinator: [facility] shoe parts caser- Lilian Palomino Phone Number for Marketing Operations Coordinator: [phone] Date of Appointment with Marketing Operations Coordinator: 07/02/24 Time of Appointment with Marketing Operations Coordinator: 2PM Case Management Appointment Comment: Intake will be held at the office [address] [place], [place] [id number] Post Discharge Appointments Primary Care Physician Name Of Family Doctor/PCP: Ramesh Fernández [address] [place] [address], DENIS Burgess [id number] Primary Care Date of Future Appointment with PCP: 07/09/2024 Time of Appointment with PCP: 11:15 AM Other #1: Name of Aftercare Appointment: [facility] Phone Number of Aftercare Appointment: [phone] Aftercare Appointment Comment: Call to schedule intake, he can meet you at your home for the intake Contact Information Discharge Discharge Address: [address] [place] [id number] Contact Information Comment: [facility]
[2024-07-01 06:31] VITALS: BP 130/88; RESP 16; TEMP 97.9
[2024-07-01] MEDS ORDERED: DESTROY THIS MEDICATION ONE (09:46)
--- NOTE | 2024-07-01 10:02 | Discharge Summary ---
Date of Service July 01, 2024 History of Present Illness Daja was admitted from the medical floor, due to recent rhinovirus infection requiring respiratory isolation, for ongoing symptoms of acute galen in the context of multiple psychosocial stressors including the of her long-time partner, of her brother, legal zhao over his estate and moving in with her friend Sara. Further initial presenting history per initial psychiatry consult note by Dr. Hill on 06/08/2024: "On interview patient presents a euphoric affect and is often circumstantial/tangential with hyperverbal speech. She reports on February 15 that her boyfriend, Amol, from stomach cancer. A week later her brother, Sukhi, from pancreatic cancer. She talks about the events that led up to her boyfriend's and how she found him unresponsive. She feels guilty because she was angry at Amol prior to passing. She reports in Thanksgiving not getting along with her friend Sara and that she "supposedly" said "WTF I might as well kill Sara." States she does not remember saying this. She endorses poor sleep "tripp if I will get 3 to 4 hours". Says that her energy is "pretty good". Says that the ER feels like a "5 start resort" and appears happy about having a coloring book, gracious staff and getting food. Reports past psychiatric hospitalization was due to trazodone overdose and she was depressed. At that time she was "starving to " and lost a lot of weight. Reports past bipolar diagnosis but she does not believe she has it. Does not know specifics of family psychiatric history but reports that family member may have committed suicide. Reports starting Lexapro 3 weeks ago for anxiety and depression from PCP and was previously taking her friend's doses. She denies current SI. Attempted to assess for past psychiatric medications however she is quite tangential. She denies having medical problems other than hypertension. Social history: Lives with best friend Sara. Was previously living with boyfriend for past 16 years prior to him passing. No current outpatient psychiatry. Denies access to guns. Denies drug alcohol use. Unclear if patient can live with friend upon discharge. RN Note: "Patient's friend stated to this RN that she has concerns about the patient's judgement. She states "I'm scared for both our safety because there were [address] sidewalk today when Peggy offered them some food from our house. She gave them some snacks and then told them all about us and our life stories, including that we live alone in my house. She's just telling random strangers about our lives and I don't know these men. What happens if they come back and try to hurt us? It's too scary and I don't want her telling my personal information to strangers." CM Note: "Met with pt to complete MH and suicide risk assessments. Pt presents with her friend, Sara Carcamo, with whom she has been staying the past few months. Pt is hyperverbal and mildly tangential. She endorses passive SI and does have a suicide attempt in 2020 by overdose. Pt was previously inpatient at [facility] in 2020 and diagnosed with MDD. Pt and friend report that pt has a history of behaviors closely resembling galen including minimal sleep with increased energy, impulsive spending, inability to concentrate, and mood instability/irritability. Pt states she is also experiencing lingering grief after losing both her brother and boyfriend in February to Cancer. Pts friend, Sara, reports that pt has been verbally aggressive recently and pt did threaten to kill Sara but does not recall doing so. Pt has also called Sara mean and evil. Pt has not slept in two weeks but was sleeping well prior to that. She has no current outpatient providers. Pts PCP has been prescribing her medications. Sara does state that pt may not be able to return to living with her and that it will need to be a discussion once pt has been stabilized. Per Sara, pt has never lived on her own as she has always either lived with her or boyfriend. Pt does have a drivers license but has driven only sparingly over the past couple of years due to increased anxiety behind the wheel. 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 She most recently was using marijuana heavily until about 3 years ago. Aside from Sara, pt has no local supports. Her family is from [place] and is not involved. Pt is seeking inpatient mental health treatment and is voluntary at this time. Process for medical clearance explained with pt verbalizing understanding."" Today she reports elevated mood, feels that this hospital and psychiatry unit is "fantastic" and expresses desire to start working. 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 Reflects that she is also skilled at writing and wonders if "the story of my life" could be published, requests that I read this. She continues to tolerate the Abilify and Klonopin which were started on the medical floor. She's motivated to start Abilify HUITRON. Psychiatric ROS notable for history of galen/psychosis, depression. Physical Exam Mental Examination Appearance: Well Groomed Eye Contact: Direct Eye Contact Motor Behavior: Unremarkable Speech: Normal Mood: Euthymic Affect: Calm Thought Process: Intact and Linear Thought Content: Intact and Linear Hallucinations: None Insight: Fair (to limited) Judgement: Fair (to limited) Vital Signs (Past 24 Hours) Last Vital Signs Temp 36.6 C 07/01/24 06:29 Pulse 87 07/01/24 06:30 Resp 16 07/01/24 06:29 BP 130/88 07/01/24 06:30 Pulse Ox 94 06/30/24 06:00 O2 Del Method Room Air 06/30/24 06:00 Principal Diagnosis Bipolar 1 MRE Galen Psychiatric Data See daily stay summary. In short, safety was maintained and the patient was cooperative with care. Medication changes included starting Abilify and transitioning to Maintena 400mg Qmonthly, Depakote ER 750mg HS and they tolerated this well. A family session was not held (no family involved) and safety plan was completed prior to discharge. Pt presented in a manic state following traumas of her brother and boyfriend. She presented a significant decreased need for sleep and required benzodiazepines as sleep aid. She presented drug induced parkinsonism when her Abilify Maintena became effective faster than expected and this resolved after d/c oral Abilify during overlap period. She presented a more stable mood, energy, thought process, and sleep prior to discharge with a Depakote trough level of 68. She was discharged to a fdc in her local county (confirmed bed) with medical transport and case management intake the following day. Day of Discharge Assessment Today the patient voices readiness for discharge. They note improvement in mood and deny thoughts to harm self or others. Thoughts remain organized and they are improved from admission. There is no evidence of psychosis. They agree to take mediations as prescribed and keep follow-up appointments. They are stable for discharge to outpatient level of care. Transition of Care Transition Of Care Record: was reviewed with the patient Advance Directives Advance Directives Information Provided: Yes Advance Directives: No Living Will: No Power of Recycler Forklift Driver Truck Driver: No Advance Directives Reason:: Declines as Mental Health Visit. Risk Factors Assessment Male: No : Yes Do You Have Access To A Gun?: No (had a pistol but this was taken by her partner's daughter after his ) Health Problems: No Mental Health Diagnoses: Yes Substance Use Disorders: No Previous Attempt: Yes Family History of Suicide: No Previous Psychiatric Hospitalization: Yes Hopelessness: No Protective Factors Assessment [employer] Beliefs: Yes Stable Relationships: Yes Discharge Data Lab Results 06/15/24 06/21/24 06/27/24 17:16 15:51 17:01 WBC 8.53 RBC 4.14 L Hgb 12.4 Hct 37.7 MCV 91.1 MCH 30.0 MCHC 32.9 RDW Std Deviation 47.8 H RDW Coeff of Prince 14.5 Plt Count 264 MPV 9.0 L Immature Gran % (Auto) 0.6 Neut % (Auto) 65.1 Lymph % (Auto) 26.6 Irwin % (Auto) 5.7 Eos % (Auto) 1.5 Baso % (Auto) 0.5 Neut # (Auto) 5.55 Lymph # (Auto) 2.27 Irwin # (Auto) 0.49 Eos # (Auto) 0.13 Baso # (Auto) 0.04 Immature Gran # (Auto) 0.05 Sodium 139 Potassium 4.3 Chloride 104 Carbon Dioxide 28 Anion Gap 7 BUN 33 H Creatinine 0.98 Est Cr Clr Drug Dosing 46.9 eGFR 62.48 BUN/Creatinine Ratio 33.7 H Glucose 79 Calcium 9.1 Total Bilirubin 0.3 AST 23 ALT 18 Alkaline Phosphatase 46 Total Protein 6.3 Albumin 4.1 Globulin 2.2 L Albumin/Globulin Ratio 1.9 Valproic Acid 43 L Burnside 0.4 L SARS-CoV-2 (PCR) NEGATIVE 12/25/24 17:30 WBC RBC Hgb Hct MCV MCH MCHC RDW Std Deviation RDW Coeff of Prince Plt Count MPV Immature Gran % (Auto) Neut % (Auto) Lymph % (Auto) Irwin % (Auto) Eos % (Auto) Baso % (Auto) Neut # (Auto) Lymph # (Auto) Irwin # (Auto) Eos # (Auto) Baso # (Auto) Immature Gran # (Auto) Sodium Potassium Chloride Carbon Dioxide Anion Gap BUN Creatinine Est Cr Clr Drug Dosing eGFR BUN/Creatinine Ratio Glucose Calcium Total Bilirubin AST ALT Alkaline Phosphatase Total Protein Albumin Globulin Albumin/Globulin Ratio Valproic Acid 68 Burnside SARS-CoV-2 (PCR) Hospital Course (1) Bipolar 1 disorder with moderate galen: (2) Insomnia due to mental disorder: (3) Paresthesia of both lower extremities: (4) Grief: Plan 06/30/24: Continue medications and treatment plan. VPA blood level today PM. 06/29/2024: Continue medications and treatment plan. 06/28/2024: Lorazepam dec to 1.5mg HS. Depakote switched to ER 750mg HS. D/c Gabapentin. Start Pregabalin 25mg BID. 06/27/2024: PM Bloodwork: CBC, CMP, VPA level 06/26/2024: D/c Abilify 20mg HS. D/c Hydroxyzine 50mg HS. Decrease Gabapentin to 200mg HS. Start Fall precautions. Orthostatic vitals. 06/25/2024: D/c Clonazepam. Start Lorazepam 2mg HS. Increase Depakote DR to 750mg HS. Start Hydroxyzine 50mg HS. VPA level on Friday PM. 06/24/2024: D/c Temazepam. Start Clonazepam 1.5mg HS 06/23/2024: Increase Depakote DR to 500 mg at bedtime. 06/22/2024: Discontinue lithium. Start Depakote DR to 250 mg at bedtime. 06/21/2024: Start Gabapentin 100mg BID morning and afternoon. Burnside level. 06/20/2024: Start Gabapentin 300mg HS. 06/19/2024: Discontinue clonazepam. Start temazepam 15 mg at bedtime. Increase lithium to 450 mg at bedtime. 06/18/2024: -Increase Klonopin to 2mg HS -Gabapentin 100mg BID prn for nerve pain 06/17/2024: -Continue abilify 20mg po -Start Burnside carbonate 300mg qhs. Will repeat Li level, TSH, Cr after 1 week 06/16/2024: The patient was admitted to the [facility] ([facility] unit) on q15 min checks (behavioral with suicide precautions) for safety. The patient will participate in group, recreational, and milieu therapies and will be offered additional individual and family sessions as clinically appropriate. -Abilify HUITRON 400mg IM given on 06/16/2024, next dose will be due ~07/14/2023 -Continue abilify 20mg po HS for 14 days -Continue Klonopin 1mg HS -Discontinue lisinopril in anticipation of starting Burnside -EKG to ensure cardiac stability before starting Burnside given age Mental Health & Subst Abuse Tx Psychiatrist Name of Psychiatrist: [facility] - [address] [facility] [place] [address] Psychiatrist's Date Of Appointment With Psychiatric Provider: Walk ins only Mondays- 8:30AM-4pm Time of Appointment with Psychiatrist: Same day intake to be assigned a psychiatrist and therapist within a week Psychiatric Appointment Comment: Providers can administer HUITRON Therapist Name of Therapist: [facility] - [address] [place] [address] Therapist's Date of Therapist Appointment: Walk ins only Mondays- 8:30AM-4pm Time of Therapist Appointment: Same day intake to be assigned a psychiatrist and therapist within a week Mainframe Analyst [facility] Mainframe [facility] leather case finisher- Lilian Palomino Phone Number for Mainframe Analyst: [phone] Date of Appointment with Mainframe Analyst: 07/02/24 Time of Appointment with Mainframe Analyst: 2PM Case Management Appointment Comment: Intake will be held at the office [address] [address] Post Discharge Appointments Primary Care Physician Name Of Family Doctor/PCP: Ramesh Fernández [facility] [place] [address] Primary Care Date of Future Appointment with PCP: 07/09/2024 Time of Appointment with PCP: 11:15 AM Other #1: Name of Aftercare Appointment: [facility] Phone Number of Aftercare Appointment: [phone] Aftercare Appointment Comment: Call to schedule intake, he can meet you at your home for the intake Contact Information Discharge Discharge Address: [address] [place] [address] Contact Information Comment: [facility] Discharge Plan Discharge Items Patient Disposition: Home - Self-Care Reason For Visit: GALEN Discharge Diagnosis: (1) Bipolar 1 disorder with moderate galen: (2) Insomnia due to mental disorder: (3) Paresthesia of both lower extremities: (4) Grief: Condition on Discharge: Fair Activity: Resume your previous activity Non-emergency contact: Primary Care Provider, Psychiatrist and Therapist Call non-emergency contact if: you have any medication questions and your symptoms worsen Follow-up/Referrals: Ramesh Fernández, [Primary Care Provider] - Diet: Regular Addtl Attending Provider Instructions: -Continue Depakote ER 750mg at bedtime -Continue Pregabalin 25mg twice daily -Take Lorazepam 1mg at bedtime for sleep, can reduce cut in half or stop if no longer needed -Next Abilify injection date (Abilify Maintena 400mg) on 07/14/2023. Continue every 1 month. Pending Studies at Discharge: No Stand-Alone Forms: My Revolver, Smoking Cessation Medications and DC Order Prescriptions: New divalproex 250 mg Tablet Extended Release 24 Hr 750 mg PO HS Qty: 90 0RF pregabalin [Lyrica] 25 mg Capsule 25 mg PO BID Qty: 60 0RF lorazepam 1 mg tablet 1 mg PO HS Qty: 30 0RF hydroxyzine HCl 50 mg tablet 50 mg PO BID PRN (Reason: anxiety/insomnia) Qty: 60 0RF Discontinued lisinopril 10 mg Tablet 10 mg PO DAILY clonazepam 1 mg Tablet 1 mg PO HS Qty: 0 0RF clonazepam 1 mg Tablet 1 mg PO BID PRNQty: 0 0RF hydroxyzine HCl 25 mg Tablet 50 mg PO Q6 PRNQty: 0 0RF hydroxyzine HCl 25 mg Tablet 50 mg PO HS Qty: 0 0RF olanzapine 5 mg Tablet,Disintegrating 5 mg PO Q8 PRNQty: 0 0RF aripiprazole [Abilify] 10 mg Tablet 20 mg PO HS Qty: 0 0RF Discharge Orders: Discharge Order (Routine); Ordered 07/01/24 Ordered By: Joel Hill Admission Data Admit Date/Time: 06/15/24 16:45 Attending Provider: Joel Hill Admit Provider: Cristy Daley Primary Care Provider: Ramesh Fernández Other Interventions: Discharge Summary Assessment (RN) Last Done: 07/01/24 10:29 [place] [address] D/C day mgmt > 30 min Patient Type Established History Comprehensive Exam Comprehensive Medical Decision Making High Complexity Diagnoses Bipolar 1 disorder with moderate galen F31.12 Insomnia due to mental disorder F51.05 Paresthesia of both lower extremities R20.2 Grief F43.21
[2024-07-01 10:32] VITALS: PULSE 91
== END 2024-07-01 11:53 | disposition home or self-care (01) | DRG 885 ==
LOC: 3S 16:45 → SUATTDRO 16:45